=== PATIENT | female | born 1965 | race American Indian/Alaskan Native ===

== ENCOUNTER 2020-03-27 23:15 | Inpatient (IN) ==
[2020-03-27] MEDS ORDERED: ONDANSETRON 4 MG ODT TABLET SL ONE (23:46)
--- NOTE | 2020-03-27 23:59 | Emergency Department Note ---
SOB HPI <Gianni Hernandez MD - Last Filed: 03/28/20 07:14> General Chief Complaint: Shortness of Breath/Dyspnea Stated Complaint: shortness of breath Time Seen by Provider: 03/27/20 23:39 Source: patient and RN notes reviewed Mode of arrival: ambulatory Limitations: no limitations History of Present Illness HPI Narrative: Narrative: This is a dialysis patient who has had fever and cough for 5 days and tested positive for Covid yesterday. She was told if her O2 saturation dropped below 90 she should come to the emergency room. This evening it has been in the high 80s. Initially in the ER here she was in the mid 90s but did drop into the mid 80s. She has had minimal nausea vomiting. She has slight cough and slight shortness of breath. MD Complaint: shortness of breath and cough Context: recent illness Severity: moderate Consistency/Duration: intermittent Improves with: oxygen Worsens with: nothing Related Data Home Medications Medication Instructions Recorded Confirmed acetaminophen 325 mg capsule 325 mg PO ONCE PRN 12/13/19 alteplase 2 mg intra-catheter 2 mg INTRA-CATHETER BID PRN 12/13/19 solution calcitriol 0.25 mcg capsule 0.25 mcg PO 3XW 12/13/19 calcium carbonate 200 mg calcium 200 mg PO ONCE PRN tab 12/13/19 (500 mg) chewable tablet cholecalciferol (vitamin D3) 1,250 1,250 mcg PO QMONTH 12/13/19 mcg (50,000 unit) capsule clonidine HCl 0.1 mg tablet 0.1 mg PO ONCE PRN tab 12/13/19 clopidogrel 75 mg tablet 75 mg PO QDAY 12/13/19 darbepoetin halima in polysorbat 40 50 mcg IV QWEEK ml 12/13/19 mcg/mL in polysorbate injection heparin (porcine) 1,000 unit/mL 1,000 unit IV ml 12/13/19 injection solution heparin (porcine) 1,000 unit/mL 500 unit IV ml 12/13/19 injection solution hydroxyzine HCl 10 mg tablet 10 mg PO ONCE PRN tab 12/13/19 olopatadine 0.1 % eye drops 1 drp OPHTHALMIC BID 12/13/19 ondansetron HCl 2 mg/mL 4 mg IM ONCE PRN ml 12/13/19 intravenous solution ondansetron HCl 4 mg tablet 4 mg PO Q8H PRN 12/13/19 cyanocobalamin (vitamin B-12) 1,000 mcg PO QDAY 01/18/20 1,000 mcg capsule carvedilol 12.5 mg PO BID 03/28/20 03/28/20 omega-3 fatty acids [Fish Oil 1,000 mg PO DAILY 03/28/20 03/28/20 Concentrate] sevelamer carbonate 2,400 mg PO TID 03/28/20 03/28/20 valacyclovir 500 mg PO DAILY 03/28/20 03/28/20 Previous Rx's Medication Instructions Recorded blood pressure monitor #1 each 11/01/15 calcium acetate(phosphat bind) 667 1,334 mg PO .TID c c #180 cap 05/22/19 mg capsule furosemide 40 mg tablet See Rx Instructions PO QAM #90 tab 11/29/19 glipizide 2.5 mg tablet, extended 2.5 mg PO QDAY #30 tab 11/29/19 release 24 hr rosuvastatin 20 mg tablet 10 mg PO HS #30 tab 11/29/19 cetirizine 10 mg tablet 10 mg PO QDAY PRN #30 tab 12/07/19 ketotifen fumarate 0.025 % (0.035 1 drp OPHTHALMIC BID PRN #5 ml 12/07/19 %) eye drops carvedilol 25 mg tablet 25 mg PO Q12H #60 tab 12/13/19 losartan 50 mg tablet 50 mg PO BID #60 tab 12/13/19 aspirin 81 mg chewable tablet 81 mg PO QDAY #30 tab 01/02/20 vitamin B comp no.3-folic acid 1 1 tab PO QDAY #30 tab 01/02/20 mg-vit C 60 mg-biotin 300 mcg tablet albuterol sulfate 90 mcg/actuation 2 puff INHALATION Q6H PRN #6.7 g 01/18/20 aerosol inhaler Allergies Allergy/AdvReac Type Severity Reaction Status Date / Time codeine Allergy Severe Itching Verified 03/28/20 03:59 sulfamethoxazole Allergy Severe Unknown Verified 03/28/20 03:59 [From ] trimethoprim [From ] Allergy Severe Unknown Verified 03/28/20 03:59 Review of Systems <Gianni Hernandez MD - Last Filed: 03/28/20 07:14> ROS ROS Narrative: Narrative: All systems ED: reviewed and negative except as stated. 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) CKD (chronic kidney disease) stage 3, GFR 30-59 ml/min (Acute) Solitary kidney, acquired (Chronic) Dysuria (Chronic) Acute respiratory disease (Chronic) Microscopic hematuria (Chronic) Acute UTI (Chronic) Visual disturbance (Chronic) URI (upper respiratory infection) (Chronic) Nonexudative age-related macular degeneration (Chronic) Presbyopia (Chronic) Myopia (Chronic) Astigmatism (Chronic) Proteinuria (Chronic) Allergy to animals (Chronic) Hyperlipidemia (Chronic) Magnesium deficiency (Chronic) Vitamin B12 deficiency (Chronic) Burn of abdomen (Chronic) Vitamin D deficiency (Chronic) Deafness in right ear (Chronic) Hypertensive disorder (Chronic) Herpes (Chronic) Anemia (Chronic) DM type 2 (diabetes mellitus, type 2) (Chronic) Edema (Chronic) Low blood sugar (Chronic) Diabetes (Chronic) Left flank pain (Acute) History of nephrectomy (Chronic) Medical History (Updated 03/27/20 @ 23:59 by Gianni Hernandez MD) Acute respiratory disease (Chronic) Acute UTI (Chronic) Allergy to animals (Chronic) YAZ positive (Acute) Anemia (Chronic) Astigmatism (Chronic) Burn of abdomen (Chronic) Lower RT abdomen Chronic kidney disease, stage III (moderate) (Chronic) Deafness in right ear (Chronic) Diabetes (Chronic) DM type 2 (diabetes mellitus, type 2) (Chronic) Dysuria (Chronic) Edema (Chronic) ESR raised (Acute) Herpes (Chronic) History of gestational diabetes (Chronic) Hyperlipidemia (Chronic) Hypertensive disorder (Chronic) Left flank pain (Acute) Low blood sugar (Chronic) Magnesium deficiency (Chronic) Microscopic hematuria (Chronic) Myopia (Chronic) Nonexudative age-related macular degeneration (Chronic) Presbyopia (Chronic) Proteinuria (Chronic) SLE (systemic lupus erythematosus) (Suspected) Solitary kidney, acquired (Chronic) URI (upper respiratory infection) (Chronic) Visual disturbance (Chronic) Vitamin B12 deficiency (Chronic) Vitamin D deficiency (Chronic) Surgical History History of section (Chronic) History of nephrectomy (Chronic) 1997 right Family History Family/Other Diabetes mellitus, type II Aunt Brother Diabetes mellitus, type II Sister Diabetes mellitus, type II Father Hypoglycemia Family/Other Diabetes mellitus, type II Uncle Social History Smoking Status: Never smoker Alcohol Intake Frequency: does not drink Substance Use: does not use Exam <Gianni Hernandez MD - Last Filed: 03/28/20 07:14> Narrative Narrative: Narrative: General Limitations: no limitations Head Head: Present atraumatic, normocephalic and normal inspection Eye Eye: Present normal appearance and EOMI; Absent scleral icterus and conjunctival injection ENT ENT: Present normal exam, normal oropharynx and mucous membranes moist Neck Neck: Present normal inspection and full ROM Chest Chest: Present normal inspection and symmetric chest wall rise Respiratory Respiratory: Present normal lung sounds bilaterally Cardiovascular Cardiovascular: Present regular rate, normal rhythm and normal heart sounds Adbominal Abdominal: Present soft; Absent distention and tenderness Extremities Extremities: Present normal inspection and full ROM; Absent pedal edema and pretibial edema Neurological Neurological: Present alert Psychiatric Psychiatric: Present normal affect Skin Skin: Present warm (WNL) and dry; Absent diaphoresis Course <Gianni Hernandez MD - Last Filed: 03/28/20 07:14> Vital Signs Vital signs: Vital Signs Temperature 101.9 F H 03/27/20 23:16 Pulse Rate 79 03/27/20 23:16 Respiratory Rate 19 03/27/20 23:16 Blood Pressure 120/50 03/27/20 23:16 Pulse Oximetry (%) 90 03/27/20 23:16 Temperature 98.2 F 03/28/20 05:28 Pulse Rate 71 03/28/20 05:28 Respiratory Rate 18 03/28/20 05:28 Blood Pressure 121/61 03/28/20 05:28 Pulse Oximetry (%) 97 03/28/20 05:28 <Goran Wright MD - Last Filed: 03/28/20 07:04> Vital Signs Vital signs: Vital Signs Temperature 101.9 F H 03/27/20 23:16 Pulse Rate 79 03/27/20 23:16 Respiratory Rate 19 03/27/20 23:16 Blood Pressure 120/50 03/27/20 23:16 Pulse Oximetry (%) 90 03/27/20 23:16 Temperature 98.2 F 03/28/20 05:28 Pulse Rate 71 03/28/20 05:28 Respiratory Rate 18 03/28/20 05:28 Blood Pressure 121/61 03/28/20 05:28 Pulse Oximetry (%) 97 03/28/20 05:28 MDM <Gianni Hernandez MD - Last Filed: 03/28/20 07:14> MDM Narrative Medical decision making narrative: Narrative: This patient is Covid positive with Covid pneumonia and decreased O2 saturation. She is admitted to the hospital by Dr. Hutchinson Lab Data Lab results narrative: Lab work is unremarkable for a dialysis patient Result diagrams: 03/27/20 23:58 03/27/20 23:58 Labs: Lab Results 03/27/20 03/27/20 Range/Units 23:58 23:58 WBC 5.4 (4.5-11.0) K/mcL RBC 2.28 L (4.00-5.20) M/mcL Hgb 8.3 L (12.0-15.0) g/dL Hct 24.4 L (36.0-48.0) % MCV 107.0 H (80.0-100.0) fL MCH 36.4 H (26.0-34.0) pg MCHC 34.0 (31.0-36.0) g/dL RDW 13.2 (11.5-14.5) % Plt Count 189 (140-440) K/mcL MPV 9.7 (7.4-10.4) fL Neut % (Auto) 69.6 (38.0-78.0) % Lymph % (Auto) 18.9 (15.0-49.0) % Benson % (Auto) 11.3 (1.0-12.0) % Eos % (Auto) 0 (0.0-7.0) % Baso % (Auto) 0.2 (0.0-2.0) % Lymph # (Auto) 1.02 L (1.50-4.80) K/mcL Benson # (Auto) 0.61 (0.10-0.90) K/mcL Eos # (Auto) 0 (0.00-0.70) K/mcL Baso # (Auto) 0.01 (0.00-0.20) K/mcL Absolute Neutrophils 3.75 (1.80-8.00) K/mcL Sodium 133 (133-145) mmol/L Potassium 3.9 (3.3-5.1) mmol/L Chloride 92 L (96-108) mmol/L Carbon Dioxide 31 H (22-30) mmol/L Anion Gap 10.0 (8.0-16.0) BUN 15 (6-20) mg/dL Creatinine 5.0 H* (0.6-1.1) mg/dL GFR Calculation 9 Glucose 148 H (70-105) mg/dL Calcium 8.5 L (8.6-10.4) mg/dL Total Bilirubin 0.5 (0.1-1.0) mg/dL AST 25 (<32) U/L ALT 15 (<40) U/L Alkaline Phosphatase 87 (39-117) U/L Total Protein 7.1 (5.9-8.4) gm/dL Albumin 3.6 (3.2-5.2) gm/dL Globulin 3.5 (2.2-3.7) gm/dL Albumin/Globulin Ratio 1.0 (1.0-2.3) Radiology Data Radiology results reviewed: Yes I reviewed the patient's radiology results. Radiology results narrative: The radiologist feels she has a small mild patchy infiltrate in both lung goode. <Goran Wright MD - Last Filed: 03/28/20 07:04> Lab Data Labs: Lab Results 03/27/20 03/27/20 Range/Units 23:58 23:58 WBC 5.4 (4.5-11.0) K/mcL RBC 2.28 L (4.00-5.20) M/mcL Hgb 8.3 L (12.0-15.0) g/dL Hct 24.4 L (36.0-48.0) % MCV 107.0 H (80.0-100.0) fL MCH 36.4 H (26.0-34.0) pg MCHC 34.0 (31.0-36.0) g/dL RDW 13.2 (11.5-14.5) % Plt Count 189 (140-440) K/mcL MPV 9.7 (7.4-10.4) fL Neut % (Auto) 69.6 (38.0-78.0) % Lymph % (Auto) 18.9 (15.0-49.0) % Benson % (Auto) 11.3 (1.0-12.0) % Eos % (Auto) 0 (0.0-7.0) % Baso % (Auto) 0.2 (0.0-2.0) % Lymph # (Auto) 1.02 L (1.50-4.80) K/mcL Benson # (Auto) 0.61 (0.10-0.90) K/mcL Eos # (Auto) 0 (0.00-0.70) K/mcL Baso # (Auto) 0.01 (0.00-0.20) K/mcL Absolute Neutrophils 3.75 (1.80-8.00) K/mcL Sodium 133 (133-145) mmol/L Potassium 3.9 (3.3-5.1) mmol/L Chloride 92 L (96-108) mmol/L Carbon Dioxide 31 H (22-30) mmol/L Anion Gap 10.0 (8.0-16.0) BUN 15 (6-20) mg/dL Creatinine 5.0 H* (0.6-1.1) mg/dL GFR Calculation 9 Glucose 148 H (70-105) mg/dL Calcium 8.5 L (8.6-10.4) mg/dL Total Bilirubin 0.5 (0.1-1.0) mg/dL AST 25 (<32) U/L ALT 15 (<40) U/L Alkaline Phosphatase 87 (39-117) U/L Total Protein 7.1 (5.9-8.4) gm/dL Albumin 3.6 (3.2-5.2) gm/dL Globulin 3.5 (2.2-3.7) gm/dL Albumin/Globulin Ratio 1.0 (1.0-2.3) Discharge Plan Patient/Caregiver Discharge Instructions Pt seen by TRACTOR DISTRIBUTOR/PA only: No Clinical Impression: COVID-19 Patient Disposition: Xfer As Inpt ([facility]) Discharge Date/Time: 03/28/20 02:51
[2020-03-28 00:40] LABS: Basophils # (Auto) 0.01 K/mcL (0.00-0.20); Basophils % (Auto) 0.2 % (0.0-2.0); Eosinophils # (Auto) 0 K/mcL (0.00-0.70); Eosinophils % (Auto) 0 % (0.0-7.0); Hematocrit 24.4 % (36.0-48.0); Hemoglobin 8.3 g/dL (12.0-15.0); Lymphocytes # (Auto) 1.02 K/mcL (1.50-4.80); Lymphocytes % (Auto) 18.9 % (15.0-49.0); Mean Platelet Volume 9.7 fL (7.4-10.4); Monocytes # (Auto) 0.61 K/mcL (0.10-0.90); Monocytes % (Auto) 11.3 % (1.0-12.0); Neutrophils % (Auto) 69.6 % (38.0-78.0); Platelet Count 189 K/mcL (140-440); RBC 2.28 M/mcL (4.00-5.20); Red Cell Distribution Width 13.2 % (11.5-14.5); WBC 5.4 K/mcL (4.5-11.0)
[2020-03-28 01:12] LABS: ALT/SGPT 15 U/L (<40); AST/SGOT 25 U/L (<32); Albumin 3.6 gm/dL (3.2-5.2); Alkaline Phosphatase 87 U/L (39-117); Bilirubin,Total 0.5 mg/dL (0.1-1.0); Blood Urea Nitrogen 15 mg/dL (6-20); Calcium 8.5 mg/dL (8.6-10.4); Carbon Dioxide 31 mmol/L (22-30); Chloride 92 mmol/L (96-108); Globulin 3.5 gm/dL (2.2-3.7); Glomerular Filtration Rate 9; Glucose 148 mg/dL (70-105)
[2020-03-28] MEDS ORDERED: ONDANSETRON 4 MG/2 ML VIAL IV PRN (01:21)
[2020-03-28] MEDS ORDERED: ACETAMINOPHEN 325 MG TABLET PO PRN (01:21)
--- NOTE | 2020-03-28 03:37 | XRay Report ---
CLINICAL INFORMATION: sob COMPARISON: None. FINDINGS: Heart size is accentuated by portable technique, left rotation and lordotic positioning. It is within normal limits. Mediastinum and pulmonary vessels are normal. Small patchy right basilar infiltrate and minimal left mid lung infiltrate appreciated. No effusions IMPRESSION: Small patchy right basilar infiltrate. Small developing infiltrate left midlung. Interpreted and Authenticated by: Deepak Leahy 03/28/20
[2020-03-28] MEDS ORDERED: cefTRIAXone 1 GM in DEXTROSE 5% IN WATER 50 ML IV SCH (10:15)
[2020-03-28] MEDS ORDERED: ALBUTEROL SULFATE 2.5 MG/3 ML NEBULIZER INH PRN (10:17)
[2020-03-28] MEDS ORDERED: DEXTROSE 31 GM ORAL.SUSP PO PRN (10:27)
[2020-03-28] MEDS ORDERED: DEXTROSE 50% 50 ML VIAL IV PRN (10:27)
[2020-03-28] MEDS ORDERED: ALTEPLASE 2 MG VIAL IJ PRN (10:33)
[2020-03-28] MEDS ORDERED: CALCIUM CARBONATE 500 MG TAB.CHEW PO PRN (10:33)
[2020-03-28] MEDS ORDERED: cloNIDine HCL 0.1 MG TABLET PO PRN (10:33)
[2020-03-28] MEDS ORDERED: ALBUTEROL SULFATE 200 PUFF INHALER INH PRN (10:33)
[2020-03-28] MEDS ORDERED: PATIENTS OWN MEDICATION 1 DOSE MISCELL OU PRN (10:58)
--- NOTE | 2020-03-28 11:07 | Internal Med History&Physical ---
HPI History of Present Illness Patient information: Note initiated : 03/28/20 at 10:53 am Service Date, if different from initiated Date: [] Patient: Iris Dixon a 54 y/o F admitted on 03/28/20 for shortness of breath. Chief Complaint: [] History of present illness: Ms. Dixon is a 54 year old F with a history of end- stage renal disease on dialysis, type 2 diabetes, and anemia who presented to the ER due to shortness of breath. As per patient, she was diagnosed with positive COVID-19 on last Wednesday last week. She developed the fever, cough and the shortness of breath on Wednesday. She also complains of mild headache and mild nausea. She also reports that she has been having watery diarrhea for 4 days, many bowel movements a day. In the ER, she was found to have oxygen desaturation 80+. Chest x-ray showed Small patchy right basilar infiltrate. Small developing infiltrate left midlung. When I saw this patient, other than the symptoms mentioned above, she denied chest pain, abdominal pain, or dysuria. Review of Systems Review of systems: Positive for fever, shortness of breath, and diarrhea. All other systems were reviewed and negative. 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) CKD (chronic kidney disease) stage 3, GFR 30-59 ml/min (Acute) Solitary kidney, acquired (Chronic) Dysuria (Chronic) Acute respiratory disease (Chronic) Microscopic hematuria (Chronic) Acute UTI (Chronic) Visual disturbance (Chronic) URI (upper respiratory infection) (Chronic) Nonexudative age-related macular degeneration (Chronic) Presbyopia (Chronic) Myopia (Chronic) Astigmatism (Chronic) Proteinuria (Chronic) Allergy to animals (Chronic) Hyperlipidemia (Chronic) Magnesium deficiency (Chronic) Vitamin B12 deficiency (Chronic) Burn of abdomen (Chronic) Vitamin D deficiency (Chronic) Deafness in right ear (Chronic) Hypertensive disorder (Chronic) Herpes (Chronic) Anemia (Chronic) DM type 2 (diabetes mellitus, type 2) (Chronic) Edema (Chronic) Low blood sugar (Chronic) Diabetes (Chronic) Left flank pain (Acute) History of nephrectomy (Chronic) Medical History Acute respiratory disease (Chronic) Acute UTI (Chronic) Allergy to animals (Chronic) YAZ positive (Acute) Anemia (Chronic) Astigmatism (Chronic) Burn of abdomen (Chronic) Lower RT abdomen Chronic kidney disease, stage III (moderate) (Chronic) Deafness in right ear (Chronic) Diabetes (Chronic) DM type 2 (diabetes mellitus, type 2) (Chronic) Dysuria (Chronic) Edema (Chronic) ESR raised (Acute) Herpes (Chronic) History of gestational diabetes (Chronic) Hyperlipidemia (Chronic) Hypertensive disorder (Chronic) Left flank pain (Acute) Low blood sugar (Chronic) Magnesium deficiency (Chronic) Microscopic hematuria (Chronic) Myopia (Chronic) Nonexudative age-related macular degeneration (Chronic) Presbyopia (Chronic) Proteinuria (Chronic) SLE (systemic lupus erythematosus) (Suspected) Solitary kidney, acquired (Chronic) URI (upper respiratory infection) (Chronic) Visual disturbance (Chronic) Vitamin B12 deficiency (Chronic) Vitamin D deficiency (Chronic) Surgical History History of section (Chronic) History of nephrectomy (Chronic) 1997 right Family History Family/Other Diabetes mellitus, type II Aunt Brother Diabetes mellitus, type II Sister Diabetes mellitus, type II Father Hypoglycemia Family/Other Diabetes mellitus, type II Uncle Social History smoking status: Never smoker alcohol intake frequency: does not drink substance use type: does not use MEDS/ALLERGIES Home Medications and Allergies Home Medications Medication Instructions Recorded Confirmed Type blood pressure monitor #1 each 11/01/15 03/28/20 Rx calcium acetate(phosphat bind) 667 1,334 mg PO .TID c c #180 cap 05/22/19 03/28/20 Rx mg capsule furosemide 40 mg tablet See Rx Instructions PO QAM #90 tab 11/29/19 03/28/20 Rx glipizide 2.5 mg tablet, extended 2.5 mg PO QDAY #30 tab 11/29/19 03/28/20 Rx release 24 hr rosuvastatin 20 mg tablet 10 mg PO HS #30 tab 11/29/19 03/28/20 Rx cetirizine 10 mg tablet 10 mg PO QDAY PRN #30 tab 12/07/19 03/28/20 Rx ketotifen fumarate 0.025 % (0.035 1 drp OPHTHALMIC BID PRN #5 ml 12/07/19 03/28/20 Rx %) eye drops acetaminophen 325 mg capsule 325 mg PO Q4HP PRN 12/13/19 03/28/20 History alteplase 2 mg intra-catheter 2 mg INTRA-CATHETER BID PRN 12/13/19 03/28/20 History solution calcitriol 0.25 mcg capsule 0.25 mcg PO 3XW 12/13/19 03/28/20 History calcium carbonate 200 mg calcium 200 mg PO ONCE PRN tab 12/13/19 03/28/20 History (500 mg) chewable tablet carvedilol 25 mg tablet 25 mg PO Q12H #60 tab 12/13/19 03/28/20 Rx cholecalciferol (vitamin D3) 1,250 1,250 mcg PO QMONTH 12/13/19 03/28/20 History mcg (50,000 unit) capsule clonidine HCl 0.1 mg tablet 0.1 mg PO ONCE PRN tab 12/13/19 03/28/20 History clopidogrel 75 mg tablet 75 mg PO QDAY 12/13/19 03/28/20 History darbepoetin halima in polysorbat 40 50 mcg IV QWEEK ml 12/13/19 03/28/20 History mcg/mL in polysorbate injection heparin (porcine) 1,000 unit/mL 1,000 unit IV 3XW ml 12/13/19 03/28/20 History injection solution heparin (porcine) 1,000 unit/mL 500 unit IV 3XW ml 12/13/19 03/28/20 History injection solution hydroxyzine HCl 10 mg tablet 10 mg PO Q6HP PRN tab 12/13/19 03/28/20 History losartan 50 mg tablet 50 mg PO BID #60 tab 12/13/19 03/28/20 Rx olopatadine 0.1 % eye drops 1 drp OPHTHALMIC BID 12/13/19 03/28/20 History ondansetron HCl 2 mg/mL 4 mg IM ONCE PRN ml 12/13/19 03/28/20 History intravenous solution ondansetron HCl 4 mg tablet 4 mg PO Q8H PRN 12/13/19 03/28/20 History aspirin 81 mg chewable tablet 81 mg PO QDAY #30 tab 01/02/20 03/28/20 Rx vitamin B comp no.3-folic acid 1 1 tab PO QDAY #30 tab 01/02/20 03/28/20 Rx mg-vit C 60 mg-biotin 300 mcg tablet albuterol sulfate 90 mcg/actuation 2 puff INHALATION Q6H PRN #6.7 g 01/18/20 03/28/20 Rx aerosol inhaler cyanocobalamin (vitamin B-12) 1,000 mcg PO QDAY 01/18/20 03/28/20 History 1,000 mcg capsule carvedilol 12.5 mg PO BID 03/28/20 03/28/20 History omega-3 fatty acids [Fish Oil 1,000 mg PO DAILY 03/28/20 03/28/20 History Concentrate] sevelamer carbonate 2,400 mg PO TID 03/28/20 03/28/20 History valacyclovir 500 mg PO DAILY 03/28/20 03/28/20 History Allergies Allergy/AdvReac Type Severity Reaction Status Date / Time codeine Allergy Severe Itching Verified 03/28/20 03:59 sulfamethoxazole Allergy Severe Unknown Verified 03/28/20 03:59 [From ] trimethoprim [From ] Allergy Severe Unknown Verified 03/28/20 03:59 EXAM Constitutional Vitals: Temp Pulse Resp BP Pulse Ox 99.9 F H 61 16 113/60 98 03/28/20 08:00 03/28/20 08:00 03/28/20 08:00 03/28/20 08:00 03/28/20 08:00 Additional findings Additional findings: General - No acute distress Eyes - PERRLA, EOM intact ENT no rhinorrhea, no noticeable or palpable swelling, no redness or rash around throat or on face Neck supple, no JVD, no thyromegaly Respiratory: Lungs - diminshed BS, no use of accessary muscles. Cardiovascular - RRR no m/r/g, GI - Normal bowel sounds, no distended, soft. Extremeties - No edema, cyanosis or clubbing Hemo/lymphatic/immune no lymphadenopathy Neurological Alert and oriented x 3, no focal neurological deficits. Psychiatry flat affect DATA Data Completed and Pending Labs: Labs from last 24 hours 03/27/20 03/27/20 23:58 23:58 WBC 5.4 RBC 2.28 L Hgb 8.3 L Hct 24.4 L MCV 107.0 H MCH 36.4 H MCHC 34.0 RDW 13.2 Plt Count 189 MPV 9.7 Neut % (Auto) 69.6 Lymph % (Auto) 18.9 Morrison % (Auto) 11.3 Eos % (Auto) 0 Baso % (Auto) 0.2 Lymph # (Auto) 1.02 L Morrison # (Auto) 0.61 Eos # (Auto) 0 Baso # (Auto) 0.01 Absolute Neutrophils 3.75 Sodium 133 Potassium 3.9 Chloride 92 L Carbon Dioxide 31 H Anion Gap 10.0 BUN 15 Creatinine 5.0 H* GFR Calculation 9 Glucose 148 H Calcium 8.5 L Total Bilirubin 0.5 AST 25 ALT 15 Alkaline Phosphatase 87 Total Protein 7.1 Albumin 3.6 Globulin 3.5 Albumin/Globulin Ratio 1.0 A/P Narrative A/P Narrative: 1. Acute hypoxic respiratory failure In the ER, she was found to have oxygen desaturation 80+ Pulse ox Oxygen therapy to keep oxygen saturation > 92% 2. Pneumonia, Covid 19 or CAP 3. Positive Covid 19 Chest x-ray showed Small patchy right basilar infiltrate. Small developing infiltrate left midlung Blood culture Sputum culture MRSA screen Procalcitonin D-dimer Ferritin CRP Vitamin D Rocephin and azithromycin Patient is not a candidate for remdesivir due to ESRD Dexamethasone 6 mg p.o. daily Continue aspirin and Plavix. Heparin 5000 mg every 12 hours 4. ESRD on HD Religion Professor Dr. Wright is on board. Really appreciate it. 5. DM type 2 with nephropathy, A1c 7.6 Renal and a diabetic diet Lantus 18 units daily Insulin sliding scale 6. Anemia, Hb 8.3 on admission, due to ESRD Dr. Wright is on board Repeat HH in morning 7. DVT prophylaxis: Heparin 8. 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
--- NOTE | 2020-03-28 11:10 | Event Note ---
Event Note Event Note: Parties in Attendance: Patient Pt's decisional Capacity: Yes POLST form completed: not I explained the process regarding CPR and intubation to the patient who fully understood and agreed with CRP and intubation.
--- NOTE | 2020-03-28 11:24 | Nephrology Consult Note ---
HPI Data of Consult Primary Care Provider: Goran Wright MD Consult Narrative cc:: CC: Alejo Escudero Kalie Dixon is a 54-year-old with end-stage renal disease from biopsy-proven diabetic nephropathy. In addition to 15 years diabetes, she is bothered by diabetic peripheral neuropathy and retinopathy. In the past she has had a positive YAZ and anti-SSA antibodies but complement levels were normal and she did not have any features of active scleroderma or lupus. In 1996 she underwent a right nephrectomy for an enlarged nonfunctioning kidney possibly due to chronic pyelonephritis but I am not sure. She has been evaluated for renal transplantation but the evaluation process was so humiliating in her opinion she is denied further contact with transplant team. 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 Deepak Manzanares. She normally is a quiet reserved patient who I see weekly on dialysis and apparently over the weekend she developed a cough and diarrhea with some nausea underwent Covid testing and was positive and dialyzed Wednesday in isolation at which time her O2 sat was above 90%, she did have some cough paroxysms in which her O2 sat with drop below 90 and then quickly recover and while not toxic appearing she was certainly apprehensive and anxious appearing. After returning home after dialysis she was short of breath and presented to the emergency room here at [facility] where she required 2 L/min O2 by nasal cannula to maintain an O2 sat greater than 95%. Tm 38.8 and brief episode of hypotension seen in the EMR. 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 Selected Entries 03/27/20 23:16 03/28/20 08:00 Temperature 37.7 C H Pulse Rate [Monitor Reading] 61 Respiratory Rate 16 Blood Pressure 120/50 Blood Pressure [Right Arm] 113/60 Pulse Oximetry (%) 98 IMPRESSION:Small patchy right basilar infiltrate. Small developing infiltrate left midlung. Laboratory Tests 03/27/20 03/27/20 23:58 23:58 WBC 5.4 Hgb 8.3 L Hct 24.4 L MCV 107.0 H Plt Count 189 Sodium 133 Potassium 3.9 Chloride 92 L Carbon Dioxide 31 H Anion Gap 10.0 BUN 15 Creatinine 5.0 H* GFR Calculation 9 Glucose 148 H Calcium 8.5 L Total Bilirubin 0.5 AST 25 ALT 15 Alkaline Phosphatase 87 Total Protein 7.1 Albumin 3.6 Globulin 3.5 Constitutional Constitutional: Present fatigue, fever(s) and weakness EENT Eyes: Present as per HPI Cardiovascular Cardiovascular: Present dyspnea Respiratory Respiratory: Present cough, dyspnea and chest congestion Gastrointestinal Gastrointestinal: Present loose stools and nausea Genitourinary Genitourinary: Present as per HPI Musculoskeletal Musculoskeletal: Present muscle weakness and myalgias Integumentary Integumentary: Present as per HPI Neurological Neurological: Present as per HPI and weakness; Absent focal weakness Psychiatric Psychiatric: Present anxiety Endocrine Endocrine: Present fatigue Hematologic/Lymphatic Additional comments: Anemia of CKD Allergic/Immunologic Allergic/Immunologic: Present as per HPI PFSH PFSH All Active Problems Anemia in ESRD (end-stage renal disease) (Acute) COVID-19 (Acute) HTN (hypertension), benign (Acute) ESRD on hemodialysis (Acute) Secondary hyperparathyroidism of renal origin (Acute) ESR raised (Acute) YAZ positive (Acute) Chronic kidney disease, stage III (moderate) (Chronic) Nephrotic range proteinuria (Chronic) Anemia (Acute) Solitary left kidney (Chronic) Chronic Kidney Disease (Chronic) Proteinuria due to type 2 diabetes mellitus (Chronic) CKD (chronic kidney disease) stage 3, GFR 30-59 ml/min (Acute) Solitary kidney, acquired (Chronic) Dysuria (Chronic) Acute respiratory disease (Chronic) Microscopic hematuria (Chronic) Acute UTI (Chronic) Visual disturbance (Chronic) URI (upper respiratory infection) (Chronic) Nonexudative age-related macular degeneration (Chronic) Presbyopia (Chronic) Myopia (Chronic) Astigmatism (Chronic) Proteinuria (Chronic) Allergy to animals (Chronic) Hyperlipidemia (Chronic) Magnesium deficiency (Chronic) Vitamin B12 deficiency (Chronic) Burn of abdomen (Chronic) Vitamin D deficiency (Chronic) Deafness in right ear (Chronic) Hypertensive disorder (Chronic) Herpes (Chronic) Anemia (Chronic) DM type 2 (diabetes mellitus, type 2) (Chronic) Edema (Chronic) Low blood sugar (Chronic) Diabetes (Chronic) Left flank pain (Acute) History of nephrectomy (Chronic) Medical History Acute respiratory disease (Chronic) Acute UTI (Chronic) Allergy to animals (Chronic) YAZ positive (Acute) Anemia (Chronic) Astigmatism (Chronic) Burn of abdomen (Chronic) Lower RT abdomen Chronic kidney disease, stage III (moderate) (Chronic) Deafness in right ear (Chronic) Diabetes (Chronic) DM type 2 (diabetes mellitus, type 2) (Chronic) Dysuria (Chronic) Edema (Chronic) ESR raised (Acute) Herpes (Chronic) History of gestational diabetes (Chronic) Hyperlipidemia (Chronic) Hypertensive disorder (Chronic) Left flank pain (Acute) Low blood sugar (Chronic) Magnesium deficiency (Chronic) Microscopic hematuria (Chronic) Myopia (Chronic) Nonexudative age-related macular degeneration (Chronic) Presbyopia (Chronic) Proteinuria (Chronic) SLE (systemic lupus erythematosus) (Suspected) Solitary kidney, acquired (Chronic) URI (upper respiratory infection) (Chronic) Visual disturbance (Chronic) Vitamin B12 deficiency (Chronic) Vitamin D deficiency (Chronic) Surgical History History of section (Chronic) History of nephrectomy (Chronic) 1997 right Family History Family/Other Diabetes mellitus, type II Aunt Brother Diabetes mellitus, type II Sister Diabetes mellitus, type II Father Hypoglycemia Family/Other Diabetes mellitus, type II Uncle Social History smoking status: Never smoker alcohol intake frequency: does not drink substance use type: does not use MEDS/ALLERGIES Home Medications and Allergies Home Medications Medication Instructions Recorded Confirmed Type blood pressure monitor #1 each 11/01/15 03/28/20 Rx calcium acetate(phosphat bind) 667 1,334 mg PO .TID c c #180 cap 05/22/19 03/28/20 Rx mg capsule furosemide 40 mg tablet See Rx Instructions PO QAM #90 tab 11/29/19 03/28/20 Rx glipizide 2.5 mg tablet, extended 2.5 mg PO QDAY #30 tab 11/29/19 03/28/20 Rx release 24 hr rosuvastatin 20 mg tablet 10 mg PO HS #30 tab 11/29/19 03/28/20 Rx cetirizine 10 mg tablet 10 mg PO QDAY PRN #30 tab 12/07/19 03/28/20 Rx ketotifen fumarate 0.025 % (0.035 1 drp OPHTHALMIC BID PRN #5 ml 12/07/19 03/28/20 Rx %) eye drops acetaminophen 325 mg capsule 325 mg PO Q4HP PRN 12/13/19 03/28/20 History alteplase 2 mg intra-catheter 2 mg INTRA-CATHETER BID PRN 12/13/19 03/28/20 History solution calcitriol 0.25 mcg capsule 0.25 mcg PO 3XW 12/13/19 03/28/20 History calcium carbonate 200 mg calcium 200 mg PO ONCE PRN tab 12/13/19 03/28/20 History (500 mg) chewable tablet carvedilol 25 mg tablet 25 mg PO Q12H #60 tab 12/13/19 03/28/20 Rx cholecalciferol (vitamin D3) 1,250 1,250 mcg PO QMONTH 12/13/19 03/28/20 History mcg (50,000 unit) capsule clonidine HCl 0.1 mg tablet 0.1 mg PO ONCE PRN tab 12/13/19 03/28/20 History clopidogrel 75 mg tablet 75 mg PO QDAY 12/13/19 03/28/20 History darbepoetin halima in polysorbat 40 50 mcg IV QWEEK ml 12/13/19 03/28/20 History mcg/mL in polysorbate injection heparin (porcine) 1,000 unit/mL 1,000 unit IV 3XW ml 12/13/19 03/28/20 History injection solution heparin (porcine) 1,000 unit/mL 500 unit IV 3XW ml 12/13/19 03/28/20 History injection solution hydroxyzine HCl 10 mg tablet 10 mg PO Q6HP PRN tab 12/13/19 03/28/20 History losartan 50 mg tablet 50 mg PO BID #60 tab 12/13/19 03/28/20 Rx olopatadine 0.1 % eye drops 1 drp OPHTHALMIC BID 12/13/19 03/28/20 History ondansetron HCl 2 mg/mL 4 mg IM ONCE PRN ml 12/13/19 03/28/20 History intravenous solution ondansetron HCl 4 mg tablet 4 mg PO Q8H PRN 12/13/19 03/28/20 History aspirin 81 mg chewable tablet 81 mg PO QDAY #30 tab 01/02/20 03/28/20 Rx vitamin B comp no.3-folic acid 1 1 tab PO QDAY #30 tab 01/02/20 03/28/20 Rx mg-vit C 60 mg-biotin 300 mcg tablet albuterol sulfate 90 mcg/actuation 2 puff INHALATION Q6H PRN #6.7 g 01/18/20 03/28/20 Rx aerosol inhaler cyanocobalamin (vitamin B-12) 1,000 mcg PO QDAY 01/18/20 03/28/20 History 1,000 mcg capsule carvedilol 12.5 mg PO BID 03/28/20 03/28/20 History omega-3 fatty acids [Fish Oil 1,000 mg PO DAILY 03/28/20 03/28/20 History Concentrate] sevelamer carbonate 2,400 mg PO TID 03/28/20 03/28/20 History valacyclovir 500 mg PO DAILY 03/28/20 03/28/20 History Allergies Allergy/AdvReac Type Severity Reaction Status Date / Time codeine Allergy Severe Itching Verified 03/28/20 03:59 sulfamethoxazole Allergy Severe Unknown Verified 03/28/20 03:59 [From ] trimethoprim [From ] Allergy Severe Unknown Verified 03/28/20 03:59 Physical Examination Vital Signs Vital signs: Temp Pulse Resp BP Pulse Ox 37.7 C H 61 16 113/60 98 03/28/20 08:00 03/28/20 08:00 03/28/20 08:00 03/28/20 08:00 03/28/20 08:00 General Appearance General appearance: chronically ill, fatigue and anxious (Less so than last evening) EENT EENT: ATNC, PERRL and mucous membranes moist Neck Neck: no JVD, no carotid bruit and supple Respiratory Respiratory: course breath sounds and rhonchi Cardiovascular Cardiology: mid-systolic murmur, no rub, no gallops, no edema, regular rate, normal S1 and normal S2 Gastrointestinal Gastrointestinal: normoactive bowel sounds, no tenderness and no guarding Integumentary Integumentary: no rash Neurologic Neurologic: no focal deficit, no asterixis, alert and oriented x3 and CN 3-12 intact Musculoskeletal Musculoskeletal: no deformities, no cyanosis and no clubbing Psychiatric Psychiatric: mood/affect appropriate Additional Exam Additional exam: Left upper arm AV fistula with bruit and thrill Results Lab Results Result Diagrams: 03/27/20 23:58 03/27/20 23:58 Lab results: Most recent lab results Calcium 8.5 mg/dL (8.6-10.4) L 03/27/20 23:58 A/P Assessment and plan (1) ESRD on hemodialysis: Status: Acute Comment: Dialysis Wednesday and Wednesday (2) COVID-19: Status: Acute Comment: Symptomatic and supportive treatment for now Dexamethasone 6 mg po qD x 10 days Azithro and cefepime empiric HCAP coverage (3) Secondary hyperparathyroidism of renal origin: Status: Acute Comment: Continue phosphate binders and 1,25 vitamin D2 analogs (4) Anemia in ESRD (end-stage renal disease): Status: Acute Comment: Received Aranesp yesterday on dialysis Time Spent With Patient Time: Total time spent is greater than 50% in coordination of care (as documented) at patient's floor/unit and/or counseling patient:
[2020-03-28 12:17] LABS: Ferritin > 2000.0 ng/mL (13.0-150.0)
[2020-03-28] MEDS: SEVELAMER 800 MG TABLET PO SCH ×2 (12:40→16:50)
[2020-03-28] MEDS: cefTRIAXone 1 GM VIAL IV SCH (12:40)
[2020-03-28] MEDS: AZITHROMYCIN 500 MG in DEXTROSE 5% IN WATER 250 ML IV SCH (12:40)
[2020-03-28] MEDS: CALCIUM ACETATE 667 MG CAPSULE PO SCH ×2 (12:40→16:51)
[2020-03-28] MEDS: 0.9 % SODIUM CHLORIDE 10 ML SYRINGE IV SCH ×2 (13:12→22:28)
[2020-03-28] MEDS: INSULIN LISPRO 1 UNIT/0.01 ML UNIT SQ SCH ×3 (13:47→21:22)
[2020-03-28 14:41] LABS: Estimated Average Glucose(eAG) 212 mg/dL
[2020-03-28] MEDS: CARVEDILOL 12.5 MG TABLET PO SCH (16:51)
[2020-03-28] MEDS: ACETAMINOPHEN 325 MG TABLET PO PRN (17:14)
[2020-03-28] MEDS ORDERED: ALBUMIN HUMAN 12.5 GM/50 ML BAG IV PRN (18:30)
[2020-03-28] MEDS ORDERED: FUROSEMIDE 40 MG TABLET PO SCH (21:00)
[2020-03-28] MEDS: SENNOSIDES 1 TABLET PO SCH (21:21)
[2020-03-28] MEDS: DOCUSATE SODIUM 100 MG CAPSULE PO SCH (21:21)
[2020-03-28] MEDS: HEPARIN 5,000 UNIT/ML VIAL SQ SCH (21:22)
[2020-03-28] MEDS: SIMVASTATIN 20 MG TABLET PO SCH (21:23)
[2020-03-28] MEDS: LOSARTAN 50 MG TABLET PO SCH (21:23)
[2020-03-28] MEDS: OLOPATADINE 0.2% OU SCH (21:24)
[2020-03-29] MEDS: 0.9 % SODIUM CHLORIDE 10 ML SYRINGE IV SCH ×3 (06:45→22:27)
[2020-03-29] MEDS: DOCUSATE SODIUM 100 MG CAPSULE PO SCH ×2 (07:02→21:32)
[2020-03-29] MEDS: OLOPATADINE 0.2% OU SCH ×2 (07:03→21:32)
[2020-03-29 07:43] LABS: Basophils # (Auto) 0.01 K/mcL (0.00-0.20); Basophils % (Auto) 0.2 % (0.0-2.0); Eosinophils # (Auto) 0.01 K/mcL (0.00-0.70); Eosinophils % (Auto) 0.2 % (0.0-7.0); Hematocrit 23.2 % (36.0-48.0); Hemoglobin 7.7 g/dL (12.0-15.0); Lymphocytes # (Auto) 1.41 K/mcL (1.50-4.80); Lymphocytes % (Auto) 28.4 % (15.0-49.0); Mean Cell Volume 108.9 fL (80.0-100.0); Mean Corpuscular HGB Conc 33.2 g/dL (31.0-36.0); Mean Platelet Volume 10.1 fL (7.4-10.4); Monocytes # (Auto) 0.49 K/mcL (0.10-0.90); Monocytes % (Auto) 9.9 % (1.0-12.0); Neutrophils % (Auto) 61.3 % (38.0-78.0); Platelet Count 210 K/mcL (140-440); RBC 2.13 M/mcL (4.00-5.20); Red Cell Distribution Width 13.4 % (11.5-14.5)
[2020-03-29] MEDS: INSULIN LISPRO 1 UNIT/0.01 ML UNIT SQ SCH ×5 (07:51→23:28)
[2020-03-29] MEDS: CYANOCOBALAMIN (VITAMIN B-12) 500 MCG TABLET PO SCH (07:51)
[2020-03-29] MEDS: VITAMIN B COMPLEX 1 CAPSULE PO SCH (07:52)
[2020-03-29] MEDS: ASPIRIN 81 MG TAB.CHEW PO SCH (07:52)
[2020-03-29] MEDS: FUROSEMIDE 40 MG TABLET PO SCH (07:52)
[2020-03-29] MEDS: LOSARTAN 50 MG TABLET PO SCH ×2 (07:52→20:55)
[2020-03-29] MEDS: CARVEDILOL 12.5 MG TABLET PO SCH ×2 (07:53→17:03)
[2020-03-29] MEDS: SEVELAMER 800 MG TABLET PO SCH ×3 (07:53→17:01)
[2020-03-29] MEDS: CALCIUM ACETATE 667 MG CAPSULE PO SCH ×3 (07:54→17:03)
[2020-03-29] MEDS: DEXAMETHASONE 4 MG TABLET PO SCH (07:54)
[2020-03-29] MEDS: HEPARIN 5,000 UNIT/ML VIAL SQ SCH ×2 (07:56→20:55)
[2020-03-29 08:31] LABS: ALT/SGPT 10 U/L (<40); AST/SGOT 20 U/L (<32); Albumin 3.2 gm/dL (3.2-5.2); Alkaline Phosphatase 75 U/L (39-117); Bilirubin,Total 0.3 mg/dL (0.1-1.0); Blood Urea Nitrogen 44 mg/dL (6-20); Calcium 7.8 mg/dL (8.6-10.4); Carbon Dioxide 26 mmol/L (22-30); Chloride 92 mmol/L (96-108); Globulin 3.3 gm/dL (2.2-3.7); Glomerular Filtration Rate 5; Glucose 126 mg/dL (70-105)
[2020-03-29] MEDS ORDERED: CHOLECALCIFEROL 1250 MCG PO SCH (09:00)
[2020-03-29] MEDS ORDERED: valACYclovir 500 MG TABLET PO SCH (09:00)
[2020-03-29] MEDS: CLOPIDOGREL 75 MG TABLET PO SCH (09:53)
[2020-03-29] MEDS: cefTRIAXone 1 GM VIAL IV SCH (09:54)
[2020-03-29] MEDS: AZITHROMYCIN 500 MG in DEXTROSE 5% IN WATER 250 ML IV SCH (09:57)
[2020-03-29] MEDS: ACETAMINOPHEN 325 MG TABLET PO PRN (10:06)
--- NOTE | 2020-03-29 13:33 | Nephrology Procedure Note ---
Procedure Note Patient information: Note initiated : 03/29/20 at 1:32 pm Service Date, if different from initiated Date: [] Patient: Iris Dixon 54 y/o F admitted on 03/28/20 for shortness of breath. Chief Complaint: [ESRD and SARS-CV2] Patient was seen and evaluated on dialysis at [facility] History with outlined in my consult note of March 28, 2020 Interval history: Patient was seen and evaluated on dialysis. 4 hour treatment with 3.4 liter U/f Patient tolerated with mild cramping. Continues with adequate O2 saturation at rest but dyspnea and increasing O2 requirements with minimal exertion. VS: Afebrile Pulse 60-70/min BP 95/60 - 120/70 RR 22-30/min O2 sat >90% on 1L/min NC Gen: Lethargic but arousable. Heent: PERRL, EOMI, Anicteric sclerae Neck: Supple w/o elevated JVP No bruits, good carotid upstroke Chest: Bilateral air flow Rhonchi w/o rales, wheezing Cor: S1S2 w/o S3 No rub ABD: BS (+), benign Ext: No edema Neuro: A& O x 3, CN II-XII intact, Nonfocal, Diffuse weakness Back: No cvat Psy: Flatted affect Laboratory Tests 03/28/20 03/28/20 03/28/20 10:59 11:00 11:00 WBC Hgb Hct MCV Plt Count Eos % (Auto) D-Dimer 2.02 H VBG Lactic Acid 0.8 Sodium Potassium Chloride Carbon Dioxide Anion Gap BUN Creatinine GFR Calculation Glucose Hemoglobin A1c 9.0 H Estim Average Glucose 212 Calcium Magnesium 1.9 Ferritin > 2000.0 H Total Bilirubin AST ALT Alkaline Phosphatase Troponin T C-Reactive Protein 8.70 H NT-Pro-B Natriuret Pep Total Protein Albumin Globulin Albumin/Globulin Ratio 25-OH Vitamin D Total Procalcitonin 03/29/20 03/29/20 06:01 06:01 WBC 5.0 Hgb 7.7 L Hct 23.2 L MCV 108.9 H Plt Count 210 Eos % (Auto) 0.2 D-Dimer VBG Lactic Acid Sodium 132 L Potassium 4.1 Chloride 92 L Carbon Dioxide 26 Anion Gap 14.0 BUN 44 H Creatinine 8.6 H* GFR Calculation 5 Glucose 126 H Hemoglobin A1c Estim Average Glucose Calcium 7.8 L Magnesium Ferritin Total Bilirubin 0.3 AST 20 ALT 10 Alkaline Phosphatase 75 Troponin T 0.02 C-Reactive Protein NT-Pro-B Natriuret Pep 3261.0 H Total Protein 6.5 Albumin 3.2 Globulin 3.3 Albumin/Globulin Ratio 1.0 25-OH Vitamin D Total 13.56 Procalcitonin 0.80 A/P: 1. SARS CV2 infection => Dexamethasone 6 mg po for 10 days Careful monitoring due to high risk patient with Obesity, DM, and ESRD 2. ESRD => Run with as much U/F as possible to minimize lung H2O. 3. Anemia => Too much labwork with acute blood loss to LAB. Transfuse to keep HgB > 7.0 gm/gl Extra Aranesp 100 ug SQ Q Sat Ferritin >1000 as acute phase reactant
[2020-03-29] MEDS ORDERED: CALCITRIOL 0.25 MCG CAPSULE PO SCH (16:00)
--- NOTE | 2020-03-29 16:30 | Internal Med Progress Note ---
SUBJECTIVE Subjective Patient information: Note initiated : 03/29/20 at 4:27 pm Service Date, if different from initiated Date: [] Patient: Iris Dixon a 54 y/o F admitted on 03/28/20 for shortness of breath. Chief Complaint: [] Ms. Dixon is a 54 year old F with a history of end-stage renal disease on dialysis, type 2 diabetes, and anemia who presented to the ER due to shortness of breath. As per patient, she was diagnosed with positive COVID-19 on last Wednesday last week. She developed the fever, cough and the shortness of breath on Wednesday. She also complains of mild headache and mild nausea. She also reports that she has been having watery diarrhea for 4 days, many bowel moveme nts a day. In the ER, she was found to have oxygen desaturation 80+. Chest x-ray showed Small patchy right basilar infiltrate. Small developing infiltrate left midlung. When I saw this patient, other than the symptoms mentioned above, she denied chest pain, abdominal pain, or dysuria. 03/29 Pt told me that she still has diarrhea but improving. Denies fever/chills. She is not a candidate for remdesivir due to end-stage renal disease She is now on 2.5 L Hemoglobin 7.7 No overnight events Review of Systems Review of systems: Positive for fever, shortness of breath, and diarrhea. All other systems were reviewed and negative. Constitutional Vitals: Vital Signs Temp Pulse Resp BP Pulse Ox 97.1 F 61 16 97/61 96 03/29/20 14:48 03/29/20 14:48 03/29/20 08:00 03/29/20 14:48 03/29/20 12:00 Period Temp Pulse Resp BP Sys/Bronson Pulse Ox Last 24 Hr 97.1 F-99.4 F 60-73 - 90-122/48-71 84-97 Intake and Output 03/29/20 03/29/20 03/29/20 05:59 13:59 21:59 Intake Total 200 240 Output Total 3400 Balance 200 240 -3400 Weight 88.178 kg Patient Weight 03/30/20 05:59 Weight 88.178 kg Intake & Output: Intake & Output 03/29/20 03/29/20 03/29/20 05:59 13:59 21:59 Intake Total 200 240 Output Total 3400 Balance 200 240 -3400 Weight 88.178 kg Intake: Oral 200 240 Output: Hemodialysis UF 3400 Other: Meal Breakfast Percent of Meal Consumed 75% Feeding Ability Independent Stool Size Moderate Moderate Stool Color Brown Brown Stool Consistency Soft Soft # Voids 3 Additional findings Additional findings: General - No acute distress Eyes - PERRLA, EOM intact ENT no rhinorrhea, no noticeable or palpable swelling, no redness or rash around throat or on face Neck supple, no JVD, no thyromegaly Respiratory: Lungs - diminshed BS, no use of accessary muscles. Cardiovascular - RRR no m/r/g, GI - Normal bowel sounds, no distended, soft. Extremeties - No edema, cyanosis or clubbing Hemo/lymphatic/immune no lymphadenopathy Neurological Alert and oriented x 3, no focal neurological deficits. Psychiatry flat affect OBJ DATA Labs CBC & Chem 7: 03/29/20 06:01 03/29/20 06:01 Labs: Abnormal Lab Results 03/29/20 03/29/20 03/28/20 06:01 06:01 11:01 RBC 2.13 L Hgb 7.7 L Hct 23.2 L MCV 108.9 H MCH 36.2 H Lymph # (Auto) 1.41 L D-Dimer Sodium 132 L Chloride 92 L Carbon Dioxide BUN 44 H Creatinine 8.6 H* Glucose 126 H Hemoglobin A1c Calcium 7.8 L Ferritin C-Reactive Protein NT-Pro-B Natriuret Pep 3261.0 H 25-OH Vitamin D Total 13.56 L Procalcitonin 03/28/20 03/28/20 03/28/20 11:01 11:00 11:00 RBC Hgb Hct MCV MCH Lymph # (Auto) D-Dimer 2.02 H Sodium Chloride Carbon Dioxide BUN Creatinine Glucose Hemoglobin A1c 9.0 H Calcium Ferritin > 2000.0 H C-Reactive Protein 8.70 H NT-Pro-B Natriuret Pep 25-OH Vitamin D Total Procalcitonin 0.80 H 03/27/20 03/27/20 23:58 23:58 RBC 2.28 L Hgb 8.3 L Hct 24.4 L MCV 107.0 H MCH 36.4 H Lymph # (Auto) 1.02 L D-Dimer Sodium Chloride 92 L Carbon Dioxide 31 H BUN Creatinine 5.0 H* Glucose 148 H Hemoglobin A1c Calcium 8.5 L Ferritin C-Reactive Protein NT-Pro-B Natriuret Pep 25-OH Vitamin D Total Procalcitonin Meds: Medications Acetaminophen (Tylenol) 650 mg PO Q6HP PRN; Protocol PRN Reason: Per Pain Protocol/Fever > 101 Last Admin: 03/29/20 10:06 Dose: 650 mg Documented by: Albuterol Sulfate (Ventolin) 2.5 mg INH Q4HP PRN PRN Reason: Shortness Of Breath Albuterol Sulfate (Ventolin) 2 puff INH Q6HP PRN PRN Reason: shortness of breath or wheezin Aspirin (Aspirin) 81 mg PO QDAY [facility] Last Admin: 03/29/20 07:52 Dose: 81 mg Documented by: Calcitriol (Rocaltrol) 0.25 mcg PO [id number]@1600 [facility] Calcium Acetate (Phoslo) 1,334 mg PO TIDCC [facility] Last Admin: 03/29/20 11:42 Dose: Not Given Documented by: Calcium Carbonate/Glycine (Tums) 200 mg PO TIDP PRN PRN Reason: Heartburn Carvedilol (Coreg) 12.5 mg PO BIDCC [facility] Last Admin: 03/29/20 07:53 Dose: 12.5 mg Documented by: Ceftriaxone Sodium (Rocephin) 1 gm IV DAILY [facility] Last Admin: 03/29/20 09:54 Dose: 1 gm Documented by: Clonidine HCl (Catapres) 0.1 mg PO DAILYP PRN PRN Reason: SBP>160, DBP>90 Clopidogrel Bisulfate (Plavix) 75 mg PO QDAY [facility] Last Admin: 03/29/20 09:53 Dose: 75 mg Documented by: Cyanocobalamin (Vitamin B-12) 1,000 mcg PO DAILY [facility] Last Admin: 03/29/20 07:51 Dose: 1,000 mcg Documented by: Dexamethasone (Decadron) 6 mg PO DAILY [facility] Last Admin: 03/29/20 07:54 Dose: 6 mg Documented by: Dextrose (Dextrose 50%) 0 ml IV UD PRN PRN Reason: Hypoglycemia Diagnostic Test (Pha) (Accu-Chek) 1 each FS ACHS [facility] Last Admin: 03/29/20 11:43 Dose: 1 each Documented by: Docusate Sodium (Colace) 100 mg PO BID [facility] Last Admin: 03/29/20 07:02 Dose: Not Given Documented by: Furosemide (Lasix) 80 mg PO DAILY [facility] Last Admin: 03/29/20 07:52 Dose: 80 mg Documented by: Glucose (Insta-Glucose) 15 gm PO PRN PRN PRN Reason: Hypoglycemia Heparin Sodium (Porcine) (Heparin) 5,000 unit SQ Q12 [facility] Last Admin: 03/29/20 07:56 Dose: 5,000 unit Documented by: Azithromycin 500 mg/ Dextrose 250 mls @ 250 mls/hr IV Q24H [facility]; Protocol Stop: 03/30/20 10:59 Last Admin: 03/29/20 09:57 Dose: 250 mls/hr Documented by: Albumin Human (Buminate) 12.5 gm in 50 mls @ 100 mls/hr IV Q1H PRN PRN Reason: hypotension on HD Insulin Human Lispro (Humalog) 0 unit SQ ACHS [facility]; Protocol Last Admin: 03/29/20 12:05 Dose: 3 units Documented by: Losartan Potassium (Cozaar) 50 mg PO BID [facility] Last Admin: 03/29/20 07:52 Dose: 50 mg Documented by: Ondansetron HCl (Zofran) 4 mg IV Q4HP PRN; Protocol PRN Reason: Nausea And Vomiting Last Admin: 03/28/20 02:58 Dose: 4 mg Documented by: Patient Own Medication () 1 dose OU BIDP PRN PRN Reason: allergy symptoms Olopatadine 0.2% (Ophthalmic Solution) 1 dose OU BID [facility] Last Admin: 03/29/20 07:03 Dose: Not Given Documented by: Senna (Senokot) 2 tab PO [facility] Last Admin: 03/28/20 21:21 Dose: Not Given Documented by: Sevelamer Carbonate (Renvela) 2,400 mg PO TIDCC [facility] Last Admin: 03/29/20 11:42 Dose: Not Given Documented by: Simvastatin (Zocor) 40 mg PO [facility] Last Admin: 03/28/20 21:23 Dose: 40 mg Documented by: Sodium Chloride (Saline Flush) 10 ml IV Q8 [facility] Last Admin: 03/29/20 12:06 Dose: Not Given Documented by: Vitamin B Complex (Vitamin B Complex) 1 cap PO DAILY [facility] Last Admin: 03/29/20 07:52 Dose: 1 cap Documented by: A/P Narrative A/P Narrative: 1. Acute hypoxic respiratory failure In the ER, she was found to have oxygen desaturation 80+ Pulse ox Oxygen therapy to keep oxygen saturation > 92% She is now on 2.5 L 2. Pneumonia, Covid 19 or CAP 3. Positive Covid 19 Chest x-ray showed Small patchy right basilar infiltrate. Small developing infiltrate left midlung Blood culture no growth MRSA screen negative Procalcitonin 0.80 D-dimer 2.02 Ferritin > 2000 CRP 8.7 Vitamin D Rocephin and azithromycin Patient is not a candidate for remdesivir due to ESRD Dexamethasone 6 mg p.o. daily Continue aspirin and Plavix. Heparin 5000 mg every 12 hours 4. 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 Wright is on board. Really appreciate it. 5. DM type 2 with nephropathy, A1c 7.6 Renal and a diabetic diet Lantus 18 units daily Insulin sliding scale 6. Anemia, Hb 8.3 on admission, due to ESRD Hemoglobin 7.[address] Wright is on board Repeat HH in morning 7. DVT prophylaxis: Heparin 8. 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
[2020-03-29] MEDS: SIMVASTATIN 20 MG TABLET PO SCH (20:55)
[2020-03-29] MEDS: SENNOSIDES 1 TABLET PO SCH (21:32)
[2020-03-30] MEDS: INSULIN LISPRO 1 UNIT/0.01 ML UNIT SQ SCH ×6 (01:48→22:45)
[2020-03-30] MEDS: 0.9 % SODIUM CHLORIDE 10 ML SYRINGE IV SCH ×3 (05:58→20:32)
[2020-03-30 07:40] LABS: Basophils # (Auto) 0.01 K/mcL (0.00-0.20); Basophils % (Auto) 0.2 % (0.0-2.0); Eosinophils # (Auto) 0 K/mcL (0.00-0.70); Eosinophils % (Auto) 0 % (0.0-7.0); Hematocrit 26.1 % (36.0-48.0); Hemoglobin 8.7 g/dL (12.0-15.0); Lymphocytes # (Auto) 0.74 K/mcL (1.50-4.80); Lymphocytes % (Auto) 14.5 % (15.0-49.0); Mean Cell Volume 108.3 fL (80.0-100.0); Mean Corpuscular HGB Conc 33.3 g/dL (31.0-36.0); Mean Platelet Volume 10.3 fL (7.4-10.4); Monocytes # (Auto) 0.77 K/mcL (0.10-0.90); Monocytes % (Auto) 15.1 % (1.0-12.0); Neutrophils % (Auto) 70.2 % (38.0-78.0); Platelet Count 285 K/mcL (140-440); RBC 2.41 M/mcL (4.00-5.20); Red Cell Distribution Width 13.2 % (11.5-14.5); WBC 5.1 K/mcL (4.5-11.0)
[2020-03-30] MEDS: CALCIUM ACETATE 667 MG CAPSULE PO SCH ×3 (08:01→17:05)
[2020-03-30] MEDS: ACETAMINOPHEN 325 MG TABLET PO PRN ×2 (08:01→20:11)
[2020-03-30] MEDS: SEVELAMER 800 MG TABLET PO SCH ×3 (08:01→17:06)
[2020-03-30] MEDS: CARVEDILOL 12.5 MG TABLET PO SCH ×2 (08:02→17:06)
[2020-03-30 09:03] LABS: ALT/SGPT 12 U/L (<40); AST/SGOT 22 U/L (<32); Albumin 3.6 gm/dL (3.2-5.2); Alkaline Phosphatase 89 U/L (39-117); Bilirubin,Total 0.4 mg/dL (0.1-1.0); Blood Urea Nitrogen 30 mg/dL (6-20); Calcium 8.5 mg/dL (8.6-10.4); Carbon Dioxide 26 mmol/L (22-30); Chloride 91 mmol/L (96-108); Globulin 3.5 gm/dL (2.2-3.7); Glomerular Filtration Rate 7; Glucose 265 mg/dL (70-105)
[2020-03-30] MEDS: FUROSEMIDE 40 MG TABLET PO SCH (09:55)
[2020-03-30] MEDS: HEPARIN 5,000 UNIT/ML VIAL SQ SCH ×2 (09:58→20:31)
[2020-03-30] MEDS: cefTRIAXone 1 GM VIAL IV SCH (09:58)
[2020-03-30] MEDS: CLOPIDOGREL 75 MG TABLET PO SCH (09:58)
[2020-03-30] MEDS: DOCUSATE SODIUM 100 MG CAPSULE PO SCH ×2 (09:59→21:21)
[2020-03-30] MEDS: DEXAMETHASONE 4 MG TABLET PO SCH (09:59)
[2020-03-30] MEDS: LOSARTAN 50 MG TABLET PO SCH ×2 (09:59→20:31)
[2020-03-30] MEDS: CYANOCOBALAMIN (VITAMIN B-12) 500 MCG TABLET PO SCH (09:59)
[2020-03-30] MEDS: VITAMIN B COMPLEX 1 CAPSULE PO SCH (09:59)
[2020-03-30] MEDS: ASPIRIN 81 MG TAB.CHEW PO SCH (09:59)
[2020-03-30] MEDS: OLOPATADINE 0.2% OU SCH ×2 (10:00→21:21)
[2020-03-30] MEDS: AZITHROMYCIN 500 MG in DEXTROSE 5% IN WATER 250 ML IV SCH (10:09)
[2020-03-30] MEDS ORDERED: DARBEPOETIN ALFA 100 MCG/ML VIAL SQ SCH (11:00)
--- NOTE | 2020-03-30 13:44 | Internal Med Progress Note ---
SUBJECTIVE Subjective Patient information: Note initiated : 03/30/20 at 1:41 pm Service Date, if different from initiated Date: [] Patient: Iris Dixon a 54 y/o F admitted on 03/28/20 for shortness of breath. Chief Complaint: [] Ms. Dixon is a 54 year old F with a history of end-stage renal disease on dialysis, type 2 diabetes, and anemia who presented to the ER due to shortness of breath. As per patient, she was diagnosed with positive COVID-19 on last Wednesday last week. She developed the fever, cough and the shortness of breath on Wednesday. She also complains of mild headache and mild nausea. She also reports that she has been having watery diarrhea for 4 days, many bowel movemen ts a day. In the ER, she was found to have oxygen desaturation 80+. Chest x-ray showed Small patchy right basilar infiltrate. Small developing infiltrate left midlung. When I saw this patient, other than the symptoms mentioned above, she denied chest pain, abdominal pain, or dysuria. 03/29 Pt told me that she still has diarrhea but improving. Denies fever/chills. She is not a candidate for remdesivir due to end-stage renal disease She is now on 2.5 L Hemoglobin 7.7 No overnight events 03/30 Patient feels better. She is now on room air to 1 L with good oxygen saturation. But she still has watery diarrhea about 4 bowel movements during the day and night. I feel her diarrhea could be ralated to viral infection. C diff pending. Otherwise she denies fever, chills, nausea or vomiting. BG high. Added lantus 10 units daily. No overnight events Review of Systems Review of systems: Positive for fever, shortness of breath, and diarrhea. All other systems were reviewed and negative. Constitutional Vitals: Vital Signs Temp Pulse Resp BP Pulse Ox 98.9 F 70 20 132/69 95 03/30/20 12:00 03/30/20 12:00 03/30/20 12:00 03/30/20 12:00 03/30/20 12:00 Period Temp Pulse Resp BP Sys/Bronson Pulse Ox Last 24 Hr 97.1 F-98.9 F 60-80 97-149/51-71 94-98 Intake and Output 03/29/20 03/30/20 03/30/20 21:59 05:59 13:59 Intake Total 800 890 Output Total 3400 Balance -2600 890 Weight 87.952 kg Intake & Output: Intake & Output 03/29/20 03/30/20 03/30/20 21:59 05:59 13:59 Intake Total 800 890 Output Total 3400 Balance -2600 890 Weight 87.952 kg Intake: Nourishment/Supplement quantity 200 (ml) IV 250 Zithromax 500 mg In Dextrose 5% 250 in Water 250 ml @ 250 mls/hr IV Q24H [facility] Rx#:[id number] Oral 600 640 Output: Hemodialysis UF 3400 Other: Meal Dinner Percent of Meal Consumed 100% Feeding Ability Independent Nourishment/Supplement name Nepro Stool Size Moderate Moderate Moderate Stool Color Brown Brown Brown Green Stool Consistency Loose Loose Loose # Voids 1 2 # Bowel Movements 1 1 Additional findings Additional findings: General - No acute distress Eyes - PERRLA, EOM intact ENT no rhinorrhea, no noticeable or palpable swelling, no redness or rash around throat or on face Neck supple, no JVD, no thyromegaly Respiratory: Lungs - diminshed BS, no use of accessary muscles. Cardiovascular - RRR no m/r/g, GI - Normal bowel sounds, no distended, soft. Extremeties - No edema, cyanosis or clubbing Hemo/lymphatic/immune no lymphadenopathy Neurological Alert and oriented x 3, no focal neurological deficits. Psychiatry flat affect OBJ DATA Labs CBC & Chem 7: 03/30/20 06:03 03/30/20 06:03 Labs: Abnormal Lab Results 03/30/20 03/30/20 03/29/20 06:03 06:03 06:01 RBC 2.41 L 2.13 L Hgb 8.7 L 7.7 L Hct 26.1 L 23.2 L MCV 108.3 H 108.9 H MCH 36.1 H 36.2 H Lymph % (Auto) 14.5 L [place] % (Auto) 15.1 H Lymph # (Auto) 0.74 L 1.41 L D-Dimer Sodium 132 L Chloride 91 L Carbon Dioxide BUN 30 H Creatinine 5.9 H* Glucose 265 H Hemoglobin A1c Calcium 8.5 L Ferritin C-Reactive Protein NT-Pro-B Natriuret Pep 25-OH Vitamin D Total Procalcitonin 03/29/20 03/28/20 03/28/20 06:01 11:01 11:01 RBC Hgb Hct MCV MCH Lymph % (Auto) [place] % (Auto) Lymph # (Auto) D-Dimer Sodium 132 L Chloride 92 L Carbon Dioxide BUN 44 H Creatinine 8.6 H* Glucose 126 H Hemoglobin A1c Calcium 7.8 L Ferritin C-Reactive Protein NT-Pro-B Natriuret Pep 3261.0 H 25-OH Vitamin D Total 13.56 L Procalcitonin 0.80 H 03/28/20 03/28/20 03/27/20 11:00 11:00 23:58 RBC Hgb Hct MCV MCH Lymph % (Auto) [place] % (Auto) Lymph # (Auto) D-Dimer 2.02 H Sodium Chloride 92 L Carbon Dioxide 31 H BUN Creatinine 5.0 H* Glucose 148 H Hemoglobin A1c 9.0 H Calcium 8.5 L Ferritin > 2000.0 H C-Reactive Protein 8.70 H NT-Pro-B Natriuret Pep 25-OH Vitamin D Total Procalcitonin 03/27/20 23:58 RBC 2.28 L Hgb 8.3 L Hct 24.4 L MCV 107.0 H MCH 36.4 H Lymph % (Auto) [place] % (Auto) Lymph # (Auto) 1.02 L D-Dimer Sodium Chloride Carbon Dioxide BUN Creatinine Glucose Hemoglobin A1c Calcium Ferritin C-Reactive Protein NT-Pro-B Natriuret Pep 25-OH Vitamin D Total Procalcitonin Meds: Medications Acetaminophen (Tylenol) 650 mg PO Q6HP PRN; Protocol PRN Reason: Per Pain Protocol/Fever > 101 Last Admin: 03/30/20 08:01 Dose: 650 mg Documented by: Albuterol Sulfate (Ventolin) 2.5 mg INH Q4HP PRN PRN Reason: Shortness Of Breath Albuterol Sulfate (Ventolin) 2 puff INH Q6HP PRN PRN Reason: shortness of breath or wheezin Aspirin (Aspirin) 81 mg PO QDAY [facility] Last Admin: 03/30/20 09:59 Dose: 81 mg Documented by: Calcitriol (Rocaltrol) 0.25 mcg PO MoWeFr@1600 [facility] Last Admin: 03/29/20 17:02 Dose: 0.25 mcg Documented by: Calcium Acetate (Phoslo) 1,334 mg PO TIDCC [facility] Last Admin: 03/30/20 12:30 Dose: 1,334 mg Documented by: Calcium Carbonate/Glycine (Tums) 200 mg PO TIDP PRN PRN Reason: Heartburn Carvedilol (Coreg) 12.5 mg PO BIDCC [facility] Last Admin: 03/30/20 08:02 Dose: 12.5 mg Documented by: Ceftriaxone Sodium (Rocephin) 1 gm IV DAILY [facility] Last Admin: 03/30/20 09:58 Dose: 1 gm Documented by: Clonidine HCl (Catapres) 0.1 mg PO DAILYP PRN PRN Reason: SBP>160, DBP>90 Clopidogrel Bisulfate (Plavix) 75 mg PO QDAY [facility] Last Admin: 03/30/20 09:58 Dose: 75 mg Documented by: Cyanocobalamin (Vitamin B-12) 1,000 mcg PO DAILY [facility] Last Admin: 03/30/20 09:59 Dose: 1,000 mcg Documented by: Darbepoetin Shashank (Aranesp) 100 mcg SQ Sa@1100 [facility] Last Admin: 03/30/20 10:42 Dose: 100 mcg Documented by: Dexamethasone (Decadron) 6 mg PO DAILY [facility] Last Admin: 03/30/20 09:59 Dose: 6 mg Documented by: Dextrose (Dextrose 50%) 0 ml IV UD PRN PRN Reason: Hypoglycemia Diagnostic Test (Pha) (Accu-Chek) 1 each FS ACHS [facility] Last Admin: 03/30/20 12:30 Dose: 1 each Documented by: Docusate Sodium (Colace) 100 mg PO BID [facility] Last Admin: 03/30/20 09:59 Dose: 100 mg Documented by: Furosemide (Lasix) 80 mg PO DAILY [facility] Last Admin: 03/30/20 09:55 Dose: 80 mg Documented by: Glipizide (Glucotrol Xl) 2.5 mg PO QDAY [facility] Glucose (Insta-Glucose) 15 gm PO PRN PRN PRN Reason: Hypoglycemia Heparin Sodium (Porcine) (Heparin) 5,000 unit SQ Q12 [facility] Last Admin: 03/30/20 09:58 Dose: 5,000 unit Documented by: Albumin Human (Buminate) 12.5 gm in 50 mls @ 100 mls/hr IV Q1H PRN PRN Reason: hypotension on HD Insulin Glargine (Lantus) 10 unit SQ DAILY [facility] Insulin Human Lispro (Humalog) 0 unit SQ [facility]; Protocol Last Admin: 03/30/20 12:30 Dose: 10 units Documented by: Losartan Potassium (Cozaar) 50 mg PO BID [facility] Last Admin: 03/30/20 09:59 Dose: 50 mg Documented by: Ondansetron HCl (Zofran) 4 mg IV Q4HP PRN; Protocol PRN Reason: Nausea And Vomiting Last Admin: 03/28/20 02:58 Dose: 4 mg Documented by: Patient Own Medication () 1 dose OU BIDP PRN PRN Reason: allergy symptoms Olopatadine 0.2% (Ophthalmic Solution) 1 dose OU BID [facility] Last Admin: 03/30/20 10:00 Dose: Not Given Documented by: Senna (Senokot) 2 tab PO [facility] Last Admin: 03/29/20 21:32 Dose: Not Given Documented by: Sevelamer Carbonate (Renvela) 2,400 mg PO TIDCC [facility] Last Admin: 03/30/20 12:30 Dose: 2,400 mg Documented by: Simvastatin (Zocor) 40 mg PO HS [facility] Last Admin: 03/29/20 20:55 Dose: 40 mg Documented by: Sodium Chloride (Saline Flush) 10 ml IV Q8 [facility] Last Admin: 03/30/20 05:58 Dose: Not Given Documented by: Vitamin B Complex (Vitamin B Complex) 1 cap PO DAILY [facility] Last Admin: 03/30/20 09:59 Dose: 1 cap Documented by: A/P Narrative A/P Narrative: 1. Acute hypoxic respiratory failure In the ER, she was found to have oxygen desaturation 80+ Pulse ox Oxygen therapy to keep oxygen saturation > 92% She is now on RM to 1 L 2. Pneumonia, Covid 19 or CAP 3. Positive Covid 19 Chest x-ray showed Small patchy right basilar infiltrate. Small developing infiltrate left midlung Blood culture no growth MRSA screen negative Procalcitonin 0.80 D-dimer 2.02 Ferritin > 2000 CRP 8.7 Vitamin D Rocephin and azithromycin Patient is not a candidate for remdesivir due to ESRD Dexamethasone 6 mg p.o. daily Continue aspirin and Plavix. Heparin 5000 mg every 12 hours 4. ESRD on HD [employer] Dr. Wright is on board. Really appreciate it. 5. DM type 2 with nephropathy, A1c 7.6 Renal and a diabetic diet Lantus 10 units daily Insulin sliding scale 6. Anemia, Hb 8.3 on admission, due to ESRD Hemoglobin 8.[address] Wright is on board Repeat HH in morning 7. DVT prophylaxis: Heparin 8. 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
[2020-03-30] MEDS: INSULIN GLARGINE, HUMAN 1 UNIT/0.01 ML SQ SCH (14:29)
[2020-03-30] MEDS: SIMVASTATIN 20 MG TABLET PO SCH (20:32)
[2020-03-30] MEDS: SENNOSIDES 1 TABLET PO SCH (21:22)
[2020-03-31] MEDS ORDERED: INSULIN LISPRO 1 UNIT/0.01 ML UNIT SQ ONE ×2 (01:08→01:26)
[2020-03-31] MEDS: INSULIN LISPRO 1 UNIT/0.01 ML UNIT SQ SCH ×4 (01:23→12:18)
[2020-03-31] MEDS: 0.9 % SODIUM CHLORIDE 10 ML SYRINGE IV SCH (05:13)
[2020-03-31 07:22] LABS: Basophils # (Auto) 0 K/mcL (0.00-0.20); Basophils % (Auto) 0 % (0.0-2.0); Eosinophils # (Auto) 0 K/mcL (0.00-0.70); Eosinophils % (Auto) 0 % (0.0-7.0); Hematocrit 24.5 % (36.0-48.0); Hemoglobin 8.7 g/dL (12.0-15.0); Lymphocytes # (Auto) 0.85 K/mcL (1.50-4.80); Lymphocytes % (Auto) 11.1 % (15.0-49.0); Mean Cell Volume 103.8 fL (80.0-100.0); Mean Corpuscular HGB Conc 35.5 g/dL (31.0-36.0); Mean Platelet Volume 9.8 fL (7.4-10.4); Monocytes # (Auto) 0.77 K/mcL (0.10-0.90); Neutrophils % (Auto) 78.9 % (38.0-78.0); Platelet Count 328 K/mcL (140-440); RBC 2.36 M/mcL (4.00-5.20); WBC 7.7 K/mcL (4.5-11.0)
[2020-03-31] MEDS ORDERED: glipiZIDE 2.5 MG TAB.XL.24H PO SCH (08:00)
[2020-03-31 08:24] LABS: ALT/SGPT 9 U/L (<40); AST/SGOT 14 U/L (<32); Albumin 3.5 gm/dL (3.2-5.2); Albumin/Globulin Ratio 1.1 (1.0-2.3); Alkaline Phosphatase 89 U/L (39-117); Bilirubin,Total 0.3 mg/dL (0.1-1.0); Blood Urea Nitrogen 64 mg/dL (6-20); Calcium 8.7 mg/dL (8.6-10.4); Carbon Dioxide 25 mmol/L (22-30); Chloride 88 mmol/L (96-108); Globulin 3.3 gm/dL (2.2-3.7); Glomerular Filtration Rate 5; Glucose 158 mg/dL (70-105)
[2020-03-31] MEDS: CALCIUM ACETATE 667 MG CAPSULE PO SCH ×2 (09:07→12:18)
[2020-03-31] MEDS: HEPARIN 5,000 UNIT/ML VIAL SQ SCH (09:08)
[2020-03-31] MEDS: cefTRIAXone 1 GM VIAL IV SCH (09:08)
[2020-03-31] MEDS: CARVEDILOL 12.5 MG TABLET PO SCH (09:08)
[2020-03-31] MEDS: SEVELAMER 800 MG TABLET PO SCH ×2 (09:08→12:18)
[2020-03-31] MEDS: INSULIN GLARGINE, HUMAN 1 UNIT/0.01 ML SQ SCH (09:09)
[2020-03-31] MEDS: ASPIRIN 81 MG TAB.CHEW PO SCH (09:09)
[2020-03-31] MEDS: FUROSEMIDE 40 MG TABLET PO SCH (09:09)
[2020-03-31] MEDS: OLOPATADINE 0.2% OU SCH (09:09)
[2020-03-31] MEDS: VITAMIN B COMPLEX 1 CAPSULE PO SCH (09:09)
[2020-03-31] MEDS: CYANOCOBALAMIN (VITAMIN B-12) 500 MCG TABLET PO SCH (09:09)
[2020-03-31] MEDS: LOSARTAN 50 MG TABLET PO SCH (09:10)
[2020-03-31] MEDS: CLOPIDOGREL 75 MG TABLET PO SCH (09:10)
[2020-03-31] MEDS: DEXAMETHASONE 4 MG TABLET PO SCH (09:10)
[2020-03-31] MEDS: DOCUSATE SODIUM 100 MG CAPSULE PO SCH (09:11)
--- NOTE | 2020-03-31 12:10 | Discharge Summary ---
Discharge Provider Provider Patient information: Note initiated : 03/31/20 at 12:01 pm Service Date, if different from initiated Date: [] Patient: Iris Dixon 54 y/o F admitted on 03/28/20 for shortness of breath. Chief Complaint: [] Date of admission: 03/28/20 02:51 Discharge date: 03/31/20 Primary care physician: Goran Wright MD Consults: 03/28/20 Consult to Physician [CONS] Stat Comment: Consulting Provider: Alejo Escudero Reason For Exam: Physician to Consult 03/28/20 10:26 Consult to Physician [CONS] Routine Comment: Consulting Provider: Goran Wright Reason For Exam: Physician to Consult Discharge Meds Discharge Medications Home Medications blood pressure monitor #1 each 11/01/15 [Rx Confirmed 03/28/20 Last Taken 08/18/17 09:00] calcium acetate(phosphat bind) 667 mg capsule 1,334 mg PO .TID c c #180 cap 05/22/19 [Rx Confirmed 03/28/20 Last Taken Unknown] furosemide 40 mg tablet See Rx Instructions PO QAM #90 tab 11/29/19 [Rx Confirmed 03/28/20 Last Taken 03/27/20 22:00] glipizide 2.5 mg tablet, extended release 24 hr 2.5 mg PO QDAY #30 tab 11/29/19 [Rx Confirmed 03/28/20 Last Taken 03/27/20 08:00] rosuvastatin 20 mg tablet 10 mg PO HS #30 tab 11/29/19 [Rx Confirmed 03/28/20 Last Taken 03/27/20 22:00] ketotifen fumarate 0.025 % (0.035 %) eye drops 1 drp OPHTHALMIC BID PRN #5 ml 12/07/19 [Rx Confirmed 03/28/20 Last Taken Unknown] alteplase 2 mg intra-catheter solution 2 mg INTRA-CATHETER BID PRN 12/13/19 [History Confirmed 03/28/20 Last Taken Unknown] calcitriol 0.25 mcg capsule 0.25 mcg PO 3XW 12/13/19 [History Confirmed 03/28/20 Last Taken Unknown] calcium carbonate 200 mg calcium (500 mg) chewable tablet 200 mg PO ONCE PRN tab 12/13/19 [History Confirmed 03/28/20 Last Taken Unknown] cholecalciferol (vitamin D3) 1,250 mcg (50,000 unit) capsule 1,250 mcg PO QMONTH 12/13/19 [History Confirmed 03/28/20 Last Taken Unknown] clonidine HCl 0.1 mg tablet 0.1 mg PO ONCE PRN tab 12/13/19 [History Confirmed 03/28/20 Last Taken Unknown] clopidogrel 75 mg tablet 75 mg PO QDAY 12/13/19 [History Confirmed 03/28/20 Last Taken 03/27/20 08:00] darbepoetin halima in polysorbat 40 mcg/mL in polysorbate injection 50 mcg IV QWEEK ml 12/13/19 [History Confirmed 03/28/20 Last Taken Unknown] heparin (porcine) 1,000 unit/mL injection solution 1,000 unit IV 3XW ml 12/13/19 [History Confirmed 03/28/20 Last Taken Unknown] heparin (porcine) 1,000 unit/mL injection solution 500 unit IV 3XW ml 12/13/19 [History Confirmed 03/28/20 Last Taken Unknown] losartan 50 mg tablet 50 mg PO BID #60 tab 12/13/19 [Rx Confirmed 03/28/20 Last Taken 03/27/20 22:00] olopatadine 0.1 % eye drops 1 drp OPHTHALMIC BID 12/13/19 [History Confirmed 03/28/20 Last Taken Unknown] aspirin 81 mg chewable tablet 81 mg PO QDAY #30 tab 01/02/20 [Rx Confirmed 03/28/20 Last Taken 03/27/20 08:00] vitamin B comp no.3-folic acid 1 mg-vit C 60 mg-biotin 300 mcg tablet 1 tab PO QDAY #30 tab 01/02/20 [Rx Confirmed 03/28/20 Last Taken 03/27/20 08:00] albuterol sulfate 90 mcg/actuation aerosol inhaler 2 puff INHALATION Q6H PRN #6.7 g 01/18/20 [Rx Confirmed 03/28/20 Last Taken 03/27/20 01:00] cyanocobalamin (vitamin B-12) 1,000 mcg capsule 1,000 mcg PO QDAY 01/18/20 [History Confirmed 03/28/20 Last Taken 03/27/20 08:00] carvedilol 12.5 mg PO BID 03/28/20 [History Confirmed 03/28/20 Last Taken Unknown] sevelamer carbonate 2,400 mg PO TID 03/28/20 [History Confirmed 03/28/20 Last Taken 03/27/20 22:00] valacyclovir 500 mg PO DAILY 03/28/20 [History Confirmed 03/28/20 Last Taken Unknown] insulin lispro [Humalog U-100 Insulin] See Rx Instructions .ROUTE .COMPLEX #3 ml 03/31/20 [Rx Last Taken Unknown] COURSE Hospital Course Hospital course: Ms. Dixon is a 54 year old F with a history of end-stage renal disease on di alysis, type 2 diabetes, and anemia who presented to the ER due to shortness of breath. As per patient, she was diagnosed with positive COVID-19 on last Wednesday last week. She developed the fever, cough and the shortness of breath on Wednesday. She also complains of mild headache and mild nausea. She also reports that she has been having watery diarrhea for 4 days, many bowel movements a day. In the ER, she was found to have oxygen desaturation 80+. Chest x-ray showed Small patchy right basilar infiltrate. Small developing infiltrate left midlung. When I saw this patient, other than the symptoms mentioned above, she denied chest pain, abdominal pain, or dysuria. 1. Acute hypoxic respiratory failure In the ER, she was found to have oxygen desaturation 80+ Pulse ox Oxygen therapy to keep oxygen saturation > 92% She has been on RM since yesterday with good saturation. 2. Pneumonia, Covid 19 or CAP 3. Positive Covid 19 Chest x-ray showed Small patchy right basilar infiltrate. Small developing infiltrate left midlung Blood culture no growth MRSA screen negative Procalcitonin 0.80 D-dimer 2.02 Ferritin > 2000 CRP 8.7 Vitamin D will discontinued Rocephin and azithromycin today Patient is not a candidate for remdesivir due to ESRD will discontinue Dexamethasone 6 mg p.o. daily (since 03/29) today. Pt has high BG on steroid. Continue aspirin and Plavix. Heparin 5000 mg every 12 hours 4. ESRD on HD [employer] Dr. Wright is on board. Really appreciate it. 5. DM type 2 with nephropathy, A1c 7.6 Renal and a diabetic diet Lantus 10 units daily Insulin sliding scale Patient blood glucose level has been high since the patient started steroid. Check blood sugar before each meal and at bedtime. Adjust insulin based on sugar level. 6. Anemia, Hb 8.3 on admission, due to ESRD Hemoglobin 8.[address] Wright is on board Interval history 03/29 Pt told me that she still has diarrhea but improving. Denies fever/chills. She is not a candidate for remdesivir due to end-stage renal disease She is now on 2.5 L Hemoglobin 7.7 No overnight events 03/30 Patient feels better. She is now on room air to 1 L with good oxygen saturation. But she still has watery diarrhea about 4 bowel movements during the day and night. I feel her diarrhea could be ralated to viral infection. C diff pending. Otherwise she denies fever, chills, nausea or vomiting. BG high. Added lantus 10 units daily. No overnight events 03/31 Patient feels very fine. Does not have any complaints. She wants to go home. CM okay to home. Her dialysis is due tomorrow. [facility]. 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 Repeat hemoglobin (CBC) and electrolytes (CMP) in 3 days. She needs to continue to be on quarantine. Call PCP for medical issues. Discharge diagnosis: respiratory failure, pneumonia Time Spent with Patient Time attestation: Total time spent providing and/or coordinating discharge services: EXAM Constitutional Vitals: Temp Pulse Resp BP Pulse Ox 98.1 F 65 18 136/62 93 03/31/20 08:00 03/31/20 08:00 03/31/20 08:00 03/31/20 08:00 03/31/20 10:00 Additional findings Additional findings: General - No acute distress Eyes - PERRLA, EOM intact ENT no rhinorrhea, no noticeable or palpable swelling, no redness or rash around throat or on face Neck supple, no JVD, no thyromegaly Respiratory: Lungs - diminshed BS (improved), no use of accessary muscles. Cardiovascular - RRR no m/r/g, GI - Normal bowel sounds, no distended, soft. Extremeties - No edema, cyanosis or clubbing Hemo/lymphatic/immune no lymphadenopathy Neurological Alert and oriented x 3, no focal neurological deficits. Psychiatry flat affect Discharge Data Data Completed and Pending Labs on day of discharge: Labs from last 24 hours 03/31/20 03/31/20 06:02 06:02 WBC 7.7 RBC 2.36 L Hgb 8.7 L Hct 24.5 L MCV 103.8 H MCH 36.9 H MCHC 35.5 RDW 13.0 Plt Count 328 MPV 9.8 Neut % (Auto) 78.9 H Lymph % (Auto) 11.1 L [place] % (Auto) 10.0 Eos % (Auto) 0 Baso % (Auto) 0 Lymph # (Auto) 0.85 L [place] # (Auto) 0.77 Eos # (Auto) 0 Baso # (Auto) 0 Absolute Neutrophils 6.05 Sodium 131 L Potassium 4.4 Chloride 88 L Carbon Dioxide 25 Anion Gap 18.0 H BUN 64 H Creatinine 8.5 H* GFR Calculation 5 Glucose 158 H Calcium 8.7 Total Bilirubin 0.3 AST 14 ALT 9 Alkaline Phosphatase 89 Total Protein 6.8 Albumin 3.5 Globulin 3.3 Albumin/Globulin Ratio 1.1 Preliminary micro results at discharge 03/28/20 10:55 Blood Culture - Preliminary Blood 03/28/20 10:51 Blood Culture - Preliminary Blood Discharge Plan Patient/Caregiver Discharge Instructions Activity: increase activity as tolerated Diet: Renal/Consistent Carbs Instructions: COVID-19 Activity Restrictions/Additional Instructions: follow with PCP in 3 days and 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 Repeat hemoglobin (CBC) and electrolytes (CMP) in 3 days. continue to be on quarantine. Call PCP for medical issues. Prescriptions: New insulin lispro [Humalog U-100 Insulin] 100 unit/mL Solution See Rx Instructions .ROUTE .COMPLEX Qty: 3 RF: 0 Continued calcium acetate(phosphat bind) 667 mg capsule 1,334 mg PO .TID c c Qty: 180 RF: 11 rosuvastatin [Crestor] 20 mg tablet 10 mg PO HS Qty: 30 RF: 4 furosemide 40 mg tablet See Rx Instructions PO QAM Qty: 90 RF: 11 glipizide 2.5 mg tablet extended release 24hr 2.5 mg PO QDAY Qty: 30 RF: 11 ketotifen fumarate [Allergy Eye (ketotifen)] 0.025 % (0.035 %) drops 1 drp OPHTHALMIC BID PRN (Reason: allergy symptoms) Qty: 5 RF: 11 alteplase 2 mg recon soln 2 mg intra-catheter BID PRN (Reason: affected catheter) RF: 0 Aranesp (in polysorbate) 40 mcg/mL solution 50 mcg IV QWEEK RF: 0 calcitriol 0.25 mcg capsule 0.25 mcg PO 3XW RF: 0 clonidine HCl 0.1 mg tablet 0.1 mg PO ONCE PRN (Reason: Hypertension) RF: 0 cholecalciferol (vitamin D3) 1,250 mcg (50,000 unit) capsule 1,250 mcg PO QMONTH RF: 0 heparin (porcine) 1,000 unit/mL solution 500 unit IV 3XW RF: 0 heparin (porcine) 1,000 unit/mL solution 1,000 unit IV 3XW RF: 0 losartan 50 mg tablet 50 mg PO BID Qty: 60 RF: 11 olopatadine 0.1 % drops 1 drp OPHTHALMIC BID RF: 0 clopidogrel 75 mg tablet 75 mg PO QDAY RF: 0 calcium carbonate [Tums] 200 mg calcium (500 mg) tablet,chewable 200 mg PO ONCE PRN (Reason: Heartburn) RF: 0 aspirin 81 mg tablet,chewable 81 mg PO QDAY Qty: 30 RF: 11 Nephro-Ofelia Rx 1-60-300 mg-mg-mcg tablet 1 tab PO QDAY Qty: 30 RF: 11 cyanocobalamin (vitamin B-12) 1,000 mcg capsule 1,000 mcg PO QDAY RF: 0 albuterol sulfate [Proventil HFA] 90 mcg/actuation HFA aerosol inhaler 2 puff INHALATION Q6H PRN (Reason: shortness of breath or wheezing) Qty: 6.7 RF: 2 carvedilol 12.5 mg Tablet 12.5 mg PO BID RF: 0 valacyclovir 500 mg tablet 500 mg PO DAILY RF: 0 sevelamer carbonate 800 mg tablet 2,400 mg PO TID RF: 0 Discontinued cetirizine 10 mg tablet 10 mg PO QDAY PRN (Reason: allergy symptoms) Qty: 30 RF: 11 carvedilol 25 mg tablet 25 mg PO Q12H Qty: 60 RF: 12 hydroxyzine HCl 10 mg tablet 10 mg PO Q6HP PRN (Reason: Itching) RF: 0 ondansetron HCl 2 mg/mL solution 4 mg IM ONCE PRN (Reason: Nausea) RF: 0 ondansetron HCl 4 mg tablet 4 mg PO Q8H PRN (Reason: Nausea) RF: 0 acetaminophen 325 mg capsule 325 mg PO Q4HP PRN (Reason: Pain) RF: 0 omega-3 fatty acids [Fish Oil Concentrate] 1,000 mg capsule 1,000 mg PO DAILY RF: 0 No Action (DME) blood pressure monitor kit See Dose Instructions .ROUTE .MEDSUPPLY Qty: 1 RF: 0 Other Ambulatory Orders: Complete Blood Count (Routine) Timeframe: 3 Days Facility: [facility] - Location: Laboratory Ordered By: Alejo Escudero Comprehensive Metabolic Panel (Routine) Timeframe: 3 Days Facility: [facility] - Location: Laboratory Ordered By: Alejo Escudero Follow Up Plan Follow up with: Unknown [Outside] (follow with PCP in 3 days and 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 Repeat hemoglobin (CBC) and electrolytes (CMP) in 3 days. continue to be on quarantine. Call PCP for medical issues) Goran Wright MD [Primary Care Provider] - (in 3 days) Patient Disposition: Home, Self-Care Discharge Orders: Discharge Order (Routine); Ordered 03/31/20 Ordered By: Alejo Escudero QUALITY VTE Deep Vein Thrombosis/Pulmonary Embolism Present on Admission: No
[2020-04-04] MEDS ORDERED: DARBEPOETIN ALFA 40 MCG/ML VIAL IV SCH (09:00)
== END 2020-03-31 13:20 | disposition home or self-care (01) | DRG 189 ==
LOC: ED 23:15 → MEDSUR 03-28 02:51
PROVIDERS: ADMIT Internal Medicine; ATTEND Internal Medicine

== ENCOUNTER 2021-09-08 03:56 | Inpatient (IN) ==
[2021-09-08] MEDS ORDERED: IOPAMIDOL 100 ML BOTTLE IV ONE ×2 (03:57)
--- NOTE | 2021-09-08 04:41 | Emergency Department Note ---
HPI General Chief complaint: Dizziness Stated complaint: dizziness Time Seen by Provider: 09/08/21 04:40 Source: patient and family (Signif Other = lives across street) Mode of arrival: wheelchair Limitations: other (poor historian in some ways. very detailed and repetative in others.) History of Present Illness HPI Narrative: Narrative: 56 y.o. Female presents with confusion x 1 week and dizziness x 1 day. feels like she is drunk. speech is not fluid like normal. feels she adds a word or two that is not needed into her sentences. became confused when she read the bible, which has not happened to her before. Feels like her head is in a vice. teeth hurt. face and judaism hurt. 8 out of 10. constant. worse with time. Did start antibiotics for a 'sinusitis' which might have helped. May be associated with Right cochlear Inplant performed 2 months ago (07/14/21) at [facility] in [place] by [place] [facility] Dr. Baker. Related Data Home Medications Medication Instructions Recorded Confirmed clopidogrel 75 mg tablet 75 mg PO QDAY 12/13/19 03/28/20 olopatadine 0.1 % eye drops 1 drp OPHTHALMIC BID 12/13/19 03/28/20 valacyclovir 500 mg tablet 500 mg PO DAILY 03/28/20 03/28/20 ergocalciferol (vitamin D2) 1,250 1,250 mcg PO QMONTH 08/05/20 mcg (50,000 unit) capsule Previous Rx's Medication Instructions Recorded blood pressure monitor #1 each 11/01/15 albuterol sulfate 90 mcg/actuation 2 puff INHALATION Q6H PRN #6.7 g 01/18/20 aerosol inhaler (Proventil HFA) insulin lispro 100 unit/mL See Rx Instructions .ROUTE 03/31/20 subcutaneous solution (Humalog .COMPLEX #3 ml U-100 Insulin) furosemide 40 mg tablet 80 mg PO BID #120 tab 10/01/20 sevelamer carbonate 800 mg tablet 2,400 mg PO TID #300 tab 12/09/20 rosuvastatin 20 mg tablet (Crestor) 10 mg PO HS #30 tab 12/10/20 aspirin 81 mg chewable tablet 81 mg PO QDAY #30 tab 01/08/21 vitamin B comp no.3-folic acid 1 1 tab PO QDAY #30 tab 01/08/21 mg-vit C 60 mg-biotin 300 mcg tablet (Nephro-Ofelia Rx) cyanocobalamin (vitamin B-12) 1,000 mcg PO QDAY #30 tab 02/04/21 1,000 mcg tablet polyethylene glycol 3350 17 17 g PO BID PRN #510 g 06/02/21 gram/dose oral powder (Miralax) omega 2-gik-zev-fish oil 500 mg 1 cap PO BID #60 tab 06/06/21 (200mg-300mg)-1,000 mg capsule (Ultra [place]-3) isosorbide dinitrate 10 mg tablet See Rx Instructions PO TID #90 tab 06/24/21 losartan 50 mg tablet See Rx Instructions PO BID #60 tab 06/24/21 calcium acetate(phosphat bind) 667 1,334 mg PO .TID c c #180 cap 07/01/21 mg capsule meclizine 12.5 mg tablet 12.5 mg PO BID PRN #5 tab 07/05/21 sodium chloride 0.65 % nasal spray 2 spray INTRANASAL Q4H PRN #15 ml 07/05/21 aerosol ([place] Nasal) glipizide 5 mg tablet 5 mg PO BID #60 tab 07/16/21 ondansetron 4 mg disintegrating 4 mg PO BID PRN #30 tab 07/21/21 tablet cetirizine 10 mg tablet 10 mg PO QDAY #30 tab 08/04/21 Allergies Allergy/AdvReac Type Severity Reaction Status Date / Time codeine Allergy Severe Itching Verified 07/04/21 21:54 sulfamethoxazole Allergy Severe Unknown Verified 07/04/21 21:54 [From ] trimethoprim [From ] Allergy Severe Unknown Verified 07/04/21 21:54 Review of Systems ROS ROS Narrative: Narrative: Constitutional: Denies fever Eyes: Denies eye discharge ENT ED: Reports hearing loss Cardiovascular: Denies chest pain Respiratory: Denies shortness of breath Gastrointestinal: Denies abdominal pain Musculoskeletal: Denies back pain Neurological: Reports headache and dizziness Hematological/Lymphatic: Reports other (anti coag with dialysis. concerned she had a clot at dialysis.) [facility] Narrative Patient History Narrative: Narrative: Medical/Surgical/Family History All Active Problems (Updated 09/08/21 @ 10:58 by Rodger Kelley MD) History of nephrectomy (Chronic) Left flank pain (Acute) Diabetes (Chronic) Low blood sugar (Chronic) Edema (Chronic) DM type 2 (diabetes mellitus, type 2) (Chronic) Anemia (Chronic) Herpes (Chronic) Hypertensive disorder (Chronic) Deafness in right ear (Chronic) Vitamin D deficiency (Chronic) Burn of abdomen (Chronic) Vitamin B12 deficiency (Chronic) Magnesium deficiency (Chronic) Hyperlipidemia (Chronic) Allergy to animals (Chronic) Proteinuria (Chronic) Astigmatism (Chronic) Myopia (Chronic) Presbyopia (Chronic) Nonexudative age-related macular degeneration (Chronic) URI (upper respiratory infection) (Chronic) Visual disturbance (Chronic) Acute UTI (Chronic) Microscopic hematuria (Chronic) Acute respiratory disease (Chronic) Dysuria (Chronic) Solitary kidney, acquired (Chronic) CKD (chronic kidney disease) stage 3, GFR 30-59 ml/min (Acute) Proteinuria due to type 2 diabetes mellitus (Chronic) Chronic Kidney Disease (Chronic) Solitary left kidney (Chronic) Anemia (Acute) Nephrotic range proteinuria (Chronic) Chronic kidney disease, stage III (moderate) (Chronic) YAZ positive (Acute) ESR raised (Acute) Secondary hyperparathyroidism of renal origin (Acute) ESRD on hemodialysis (Acute) HTN (hypertension), benign (Acute) COVID-19 (Acute) Anemia in ESRD (end-stage renal disease) (Acute) Sudden hearing loss (Acute) Tinnitus (Acute) Hypertensive urgency (Acute) Accelerated hypertension (Acute) Pulmonary edema (Acute) Acute dyspnea (Acute) Constipation due to slow transit (Acute) Light-headed feeling (Acute) Dizziness (Acute) Nausea (Acute) End-stage renal disease (ESRD) (Acute) Anemia (Acute) Sinusitis (Acute) Congestion of nasal sinus (Acute) Vertigo (Acute) Dizzinesses (Acute) Acute confusion (Acute) Chronic kidney failure (Acute) Medical History (Updated 09/08/21 @ 10:58 by Rodger Kelley MD) Acute respiratory disease Acute UTI Allergy to animals YAZ positive Anemia Astigmatism Burn of abdomen Lower RT abdomen Chronic kidney disease, stage III (moderate) Deafness in right ear Diabetes DM type 2 (diabetes mellitus, type 2) Dysuria Edema ESR raised Herpes History of gestational diabetes Hyperlipidemia Hypertensive disorder Left flank pain Low blood sugar Magnesium deficiency Microscopic hematuria Myopia Nonexudative age-related macular degeneration Presbyopia Proteinuria SLE (systemic lupus erythematosus) Solitary kidney, acquired URI (upper respiratory infection) Visual disturbance Vitamin B12 deficiency Vitamin D deficiency Surgical History History of section History of nephrectomy 1997 right Family History Family/Other Diabetes mellitus, type II Aunt Brother Diabetes mellitus, type II Sister Diabetes mellitus, type II Father Hypoglycemia Family/Other Diabetes mellitus, type II Uncle Social History Smoking Status: Never smoker Alcohol Intake Frequency: does not drink Substance Use: does not use Exam Narrative Narrative: Narrative: General Limitations: other (poor historian in some ways. very detailed and repetative in others.) General appearance: Present alert, in distress and other (becomes agitated) Head Head: Present normocephalic Eye Eye: Present EOMI ENT ENT: Present other (Left TM clear. Rt. TM only partially seen) Neck Neck: Present normal inspection and trachea midline Respiratory Respiratory: Absent respiratory distress Cardiovascular Cardiovascular: Present regular rate and normal rhythm Adbominal Abdominal: Absent tenderness Back Back: Present normal inspection Neurological Neurological: Present alert Psychiatric Psychiatric: Present agitated Skin Skin: Present warm (WNL) and dry Course Vital Signs Vital signs: Vital Signs Temperature 97.8 F 09/08/21 03:58 Pulse Rate 84 09/08/21 03:58 Respiratory Rate 18 09/08/21 03:58 Blood Pressure 221/124 09/08/21 03:58 Pulse Oximetry (%) 96 09/08/21 03:58 Temperature 97.8 F 09/08/21 03:58 Pulse Rate 82 09/08/21 10:31 Respiratory Rate 18 09/08/21 03:58 Blood Pressure 177/78 09/08/21 10:31 Pulse Oximetry (%) 95 09/08/21 10:31 [facility] MDM Narrative Medical decision making narrative: Narrative: 56 y.o F with Dizziness of 1 day and confusion x 1 week. Differential DX: CVA, encephalopathy, intoxication, Intracranial tumor/mass (neg head CT 2 months ago), electrolyte abnormality, glucose abnormality. other. CT of Head initially raised concern about possible Mastoiditis. no other acute pathology. Re-read by [facility] Rad. doc = NAD. NIHSS score was '0'. test of Schew was negative. [facility] placed to [facility] to speak to ENT to ask about Mastoiditis possibility at Rt. coclear Inplant site. CBC unremarkable except MCV elevated at 107. CMP had Sodium 132. BUN and CR. very high (dialysis pt). Glucose high at 284. UA neg. Case signed out to colleague Dr. [place] who assumes care and will determine disposition. Lab Data Result diagrams: 09/08/21 05:08 09/08/21 05:08 Labs: Lab Results 09/08/21 09/08/21 09/08/21 Range/Units 05:08 05:08 05:08 WBC 8.9 (4.5-11.0) K/mcL RBC 3.81 (3.59-5.38) M/mcL Hgb 13.9 (11.2-15.7) g/dL Hct 40.9 (34.1-44.9) % MCV 107.3 H (80.0-100.0) fL MCH 36.5 H (26.0-34.0) pg MCHC 34.0 (31.0-36.0) g/dL RDW 14.4 (11.5-14.5) % Plt Count 189 (140-440) K/mcL MPV 9.7 (7.4-10.4) fL Neut % (Auto) 79.9 H (38.0-78.0) % Lymph % (Auto) 13.2 L (15.5-49.0) % [place] % (Auto) 5.3 (1.0-12.0) % Eos % (Auto) 1.1 (0.0-7.0) % Baso % (Auto) 0.5 (0.0-2.0) % Lymph # (Auto) 1.17 L (1.50-4.80) K/mcL [place] # (Auto) 0.47 (0.10-0.90) K/mcL Eos # (Auto) 0.10 (0.00-0.70) K/mcL Baso # (Auto) 0.04 (0.00-0.30) K/mcL Absolute Neutrophils 7.09 (1.80-8.00) K/mcL Sodium 132 L (133-145) mmol/L Potassium 4.9 (3.3-5.1) mmol/L Chloride 94 L (96-108) mmol/L Carbon Dioxide 19 L (22-30) mmol/L Anion Gap 19.0 H (8.0-16.0) BUN 50 H (6-20) mg/dL Creatinine 8.5 H* (0.6-1.1) mg/dL GFR Calculation 5 Glucose 284 H (70-105) mg/dL Calcium 9.1 (8.6-10.4) mg/dL Total Bilirubin 0.5 (0.1-1.0) mg/dL AST 23 (<32) U/L ALT 23 (<40) U/L Alkaline Phosphatase 124 H (39-117) U/L Ammonia 38 (11-51) umol/L Total Protein 7.1 (5.9-8.4) gm/dL Albumin 4.3 (3.2-5.2) gm/dL Globulin 2.8 (2.2-3.7) gm/dL Albumin/Globulin Ratio 1.5 (1.0-2.3) Folate (4.2-19.9) ng/mL Urine Color Urine Appearance (Clear) Urine pH (5.0-9.0) Ur Specific [place] (1.000-1.035) Urine Protein (Negative) mg/dL Urine Glucose (UA) (Negative) mg/dL Urine Ketones (Negative) mg/dL Urine Occult Blood (Negative) mg/dL Urine Nitrate (Negative) Urine Bilirubin (Negative) mg/dL Urine Urobilinogen mg/dL Ur Leukocyte Esterase (Negative) /uL Urine RBC (0-3) /hpf Urine WBC (0-4) /hpf Ur Squamous Epith Cells (0-4) /hpf Urine Bacteria (0) /hpf Ur Culture Indicated? Ethyl Alcohol (<0.010) gm/dL 09/08/21 09/08/21 09/08/21 Range/Units 05:36 07:02 07:02 WBC (4.5-11.0) K/mcL RBC (3.59-5.38) M/mcL Hgb (11.2-15.7) g/dL Hct (34.1-44.9) % MCV (80.0-100.0) fL MCH (26.0-34.0) pg MCHC (31.0-36.0) g/dL RDW (11.5-14.5) % Plt Count (140-440) K/mcL MPV (7.4-10.4) fL Neut % (Auto) (38.0-78.0) % Lymph % (Auto) (15.5-49.0) % [place] % (Auto) (1.0-12.0) % Eos % (Auto) (0.0-7.0) % Baso % (Auto) (0.0-2.0) % Lymph # (Auto) (1.50-4.80) K/mcL [place] # (Auto) (0.10-0.90) K/mcL Eos # (Auto) (0.00-0.70) K/mcL Baso # (Auto) (0.00-0.30) K/mcL Absolute Neutrophils (1.80-8.00) K/mcL Sodium (133-145) mmol/L Potassium (3.3-5.1) mmol/L Chloride (96-108) mmol/L Carbon Dioxide (22-30) mmol/L Anion Gap (8.0-16.0) BUN (6-20) mg/dL Creatinine (0.6-1.1) mg/dL GFR Calculation Glucose (70-105) mg/dL Calcium (8.6-10.4) mg/dL Total Bilirubin (0.1-1.0) mg/dL AST (<32) U/L ALT (<40) U/L Alkaline Phosphatase (39-117) U/L Ammonia (11-51) umol/L Total Protein (5.9-8.4) gm/dL Albumin (3.2-5.2) gm/dL Globulin (2.2-3.7) gm/dL Albumin/Globulin Ratio (1.0-2.3) Folate > 20.0 H (4.2-19.9) ng/mL Urine Color Yellow Urine Appearance Clear (Clear) Urine pH 8.0 (5.0-9.0) Ur Specific [place] 1.008 (1.000-1.035) Urine Protein 100 A (Negative) mg/dL Urine Glucose (UA) >=500 A (Negative) mg/dL Urine Ketones Negative (Negative) mg/dL Urine Occult Blood 0.03 (Negative) mg/dL Urine Nitrate Negative (Negative) Urine Bilirubin Negative (Negative) mg/dL Urine Urobilinogen Negative mg/dL Ur Leukocyte Esterase Negative (Negative) /uL Urine RBC 1 (0-3) /hpf Urine WBC 1 (0-4) /hpf Ur Squamous Epith Cells 1 (0-4) /hpf Urine Bacteria None (0) /hpf Ur Culture Indicated? No Ethyl Alcohol < 0.010 (<0.010) gm/dL Discharge Plan Patient/Caregiver Discharge Instructions Pt seen by ENTRY LEVEL PROGRAMMER/PA only: No Clinical Impression: Dizzinesses, Acute confusion Chronic kidney failure Qualifiers: Chronic kidney disease stage: stage 5 Qualified Code(s): N18.5 - Chronic kidney disease, stage 5 Patient Disposition: Still a Patient Condition: Fair Follow up with: Not On Staff,Physician [Primary Care Provider] - Prescriptions: No Action olopatadine 0.1 % drops 1 drp OPHTHALMIC BID 0RF Rx Instructions: 1 gtt in each affected eye (0.1% solution) 2 times a day clopidogrel 75 mg tablet 75 mg PO QDAY 0RF Rx Instructions: 75 mg orally (75 mg tablet) once a day (in the morning) albuterol sulfate [Proventil HFA] 90 mcg/actuation HFA aerosol inhaler 2 puff INHALATION Q6H PRN (Reason: shortness of breath or wheezing) Qty: 6.7 2RF ergocalciferol (vitamin D2) 1,250 mcg (50,000 unit) capsule 1,250 mcg PO QMONTH 0RF furosemide 40 mg tablet 80 mg PO BID Qty: 120 11RF Rx Instructions: New correct dose sevelamer carbonate 800 mg tablet 2,400 mg PO TID Qty: 300 11RF Rx Instructions: must administer with a meal/food. Dose adjustment based on monthly labs at HD unit rosuvastatin [Crestor] 20 mg tablet 10 mg PO HS Qty: 30 11RF aspirin 81 mg tablet,chewable 81 mg PO QDAY Qty: 30 11RF Nephro-Ofelia Rx 1-60-300 mg-mg-mcg tablet 1 tab PO QDAY Qty: 30 11RF cyanocobalamin (vitamin B-12) 1,000 mcg tablet 1,000 mcg PO QDAY Qty: 30 11RF polyethylene glycol 3350 [Miralax] 17 gram/dose powder 17 g PO BID PRN (Reason: constipation) Qty: 510 3RF Rx Instructions: 1 scoop (17 gm) in 4 oz water up to 4 times a day as needed to relieve constipation. Ultra [place]-3 500-1,000 mg capsule 1 cap PO BID Qty: 60 2RF isosorbide dinitrate 10 mg tablet See Rx Instructions PO TID Qty: 90 11RF Rx Instructions: 10 mg orally three times daily and skip evening dose on MWF after dialysis losartan 50 mg tablet See Rx Instructions PO BID Qty: 60 11RF Rx Instructions: The correct dose of Losartan is 50 mg orally BID and skip dose MWF evening after dialysis calcium acetate(phosphat bind) 667 mg capsule 1,334 mg PO .TID c c Qty: 180 11RF glipizide 5 mg tablet 5 mg PO BID Qty: 60 11RF Rx Instructions: New dose and formulation ondansetron 4 mg tablet,disintegrating 4 mg PO BID PRN (Reason: nausea and vomiting) Qty: 30 0RF Rx Instructions: Use as needed for nausea cetirizine 10 mg tablet 10 mg PO QDAY Qty: 30 11RF (DME) blood pressure monitor kit See Dose Instructions .ROUTE .MEDSUPPLY Qty: 1 0RF Dose Instruction: As directed Rx Instructions: As directed to monitor blood pressures at home. valacyclovir 500 mg tablet 500 mg PO DAILY 0RF insulin lispro [Humalog U-100 Insulin] 100 unit/mL Solution See Rx Instructions .ROUTE .COMPLEX Qty: 3 0RF Rx Instructions: Check bg before each meal and at bedtime.Give 1 unit if bg>150; 2 units if bg> 200; give 3 units if bg>250; give 4 units if bg>300; give 5 units if bg>350; give 6 units if bg>400, call PCP or go to the ER immediately. Maximal 20 units/. If pt needs>20 units/day, call PCP. meclizine 12.5 mg tablet 12.5 mg PO BID PRN (Reason: dizziness) Qty: 5 0RF [place] Nasal 0.65 % aerosol,spray 2 spray intranasal Q4H PRN (Reason: nasal congestion) Qty: 15 0RF
[2021-09-08 05:53] LABS: Basophils # (Auto) 0.04 K/mcL (0.00-0.30); Basophils % (Auto) 0.5 % (0.0-2.0); Eosinophils % (Auto) 1.1 % (0.0-7.0); Hematocrit 40.9 % (34.1-44.9); Hemoglobin 13.9 g/dL (11.2-15.7); Lymphocytes # (Auto) 1.17 K/mcL (1.50-4.80); Lymphocytes % (Auto) 13.2 % (15.5-49.0); Mean Cell Volume 107.3 fL (80.0-100.0); Mean Platelet Volume 9.7 fL (7.4-10.4); Monocytes # (Auto) 0.47 K/mcL (0.10-0.90); Monocytes % (Auto) 5.3 % (1.0-12.0); Neutrophils % (Auto) 79.9 % (38.0-78.0); Platelet Count 189 K/mcL (140-440); RBC 3.81 M/mcL (3.59-5.38); Red Cell Distribution Width 14.4 % (11.5-14.5); WBC 8.9 K/mcL (4.5-11.0)
[2021-09-08 06:23] LABS: Appearance,Urine CLEAR (Clear); Bilirubin,Urine Negative (Negative); Color,Urine YELLOW; Culture Indicated,Urine No; Glucose,Urine (UA) >=500 mg/dL (Negative); Ketones,Urine Negative (Negative); Leukocyte Esterase,Urine Negative /uL (Negative); Nitrate,Urine Negative (Negative); Protein,Urine 100 mg/dL (Negative); Specific Gravity,Urine 1.008 (1.000-1.035); Urine Blood 0.03 mg/dL (Negative); Urine RBC 1 /hpf (0-3); Urine Squamous Epithelial Cell 1 /hpf (0-4); Urine WBC 1 /hpf (0-4); Urobilinogen,Urine Negative
[2021-09-08 06:25] LABS: ALT/SGPT 23 U/L (<40); AST/SGOT 23 U/L (<32); Albumin 4.3 gm/dL (3.2-5.2); Albumin/Globulin Ratio 1.5 (1.0-2.3); Alkaline Phosphatase 124 U/L (39-117); Bilirubin,Total 0.5 mg/dL (0.1-1.0); Blood Urea Nitrogen 50 mg/dL (6-20); Calcium 9.1 mg/dL (8.6-10.4); Carbon Dioxide 19 mmol/L (22-30); Chloride 94 mmol/L (96-108); Globulin 2.8 gm/dL (2.2-3.7); Glomerular Filtration Rate 5; Glucose 284 mg/dL (70-105)
[2021-09-08] MEDS ORDERED: INSULIN REGULAR, HUMAN 1 UNIT/0.01 ML UNIT SQ ONE (06:52)
--- NOTE | 2021-09-08 08:03 | Cat Scan Report ---
History: New onset dizziness and confusion TECHNIQUE: The brain was imaged without contrast in axial plane at 2.5 mm intervals. Sagittal and coronal reformats were created. The radiation exposure was limited using dose reduction technology. FINDINGS: There are postoperative changes following prior right-sided mastoidectomy and insertion of a cochlear implant. The implant is well-positioned in the basal turn of the cochlea. The power pack is located in the scalp adjacent to the right parietal bone. The right mastoid fossa is filled with soft tissue material which may be granulation tissue. There is no bone erosion or surrounding soft tissue inflammation. The power pack is creating significant beam hardening artifact. The brain appears normal. There is no evidence of infarct, hemorrhage, edema or mass effect. The ventricles and cisterns are normal. No abnormal extra-axial fluid collection is present. No abnormality is seen in the posterior fossa. Comparison with the prior CT done on 06/30/21 shows the cochlear implant is new. There has been no other significant change. IMPRESSION: No acute abnormality Interpreted and Authenticated by: Adolfo Yee 09/08/21
[2021-09-08 08:41] LABS: Alcohol, Blood < 10.0 mg/dL; Alcohol,Blood < 0.010 gm/dL (<0.010)
--- NOTE | 2021-09-08 09:34 | Emergency Department Note ---
HPI General Chief complaint: Dizziness Stated complaint: dizziness Time Seen by Provider: 09/08/21 04:40 Source: patient Mode of arrival: wheelchair Limitations: no limitations History of Present Illness HPI Narrative: Narrative: 56 yo F w/ h/o ERSD on HD TThSa, DM2, HTN, deafness s/p R cochlear implant in Jun p/w R sided THORNTON, confusion, vertigo, difficulty speaking. She was seen overnight by Dr Kelley who was concerned for mastoiditis and checked a CT head w/o contrast this showed questionable mastoiditis vs postop changes by offsite overnight radiology. This AM however our radiologist sees NAD. Her ENT in [facility] was paged but has not yet returned a call. She was signed out to me with the above Sx. I was concerned for the possibility of posterior CVA given her Hx. She reports that the dizziness is the world "shifting" and circling around her. It is constant, perhaps worse w/ movement but not relieved by rest. It is accompanied by confusion and difficulty w/ memory, which are new for her. She also notes that she was reading something out loud and felt that she was reading "like a 7 year old" struggling to read. This was partially due to issues w/ the words themselves and partially because she was having trouble w/ the pages seeming like they were moving in waves. She notes that she feels "like I'm drunk" when walking. This has all been constant since around Wednesday night or Wednesday morning. Additionally she notes flashes of light in her vision. Related Data Home Medications Medication Instructions Recorded Confirmed clopidogrel 75 mg tablet 75 mg PO QDAY 12/13/19 03/28/20 olopatadine 0.1 % eye drops 1 drp OPHTHALMIC BID 12/13/19 03/28/20 valacyclovir 500 mg tablet 500 mg PO DAILY 03/28/20 03/28/20 ergocalciferol (vitamin D2) 1,250 1,250 mcg PO QMONTH 08/05/20 mcg (50,000 unit) capsule Previous Rx's Medication Instructions Recorded blood pressure monitor #1 each 11/01/15 albuterol sulfate 90 mcg/actuation 2 puff INHALATION Q6H PRN #6.7 g 01/18/20 aerosol inhaler (Proventil HFA) insulin lispro 100 unit/mL See Rx Instructions .ROUTE 03/31/20 subcutaneous solution (Humalog .COMPLEX #3 ml U-100 Insulin) furosemide 40 mg tablet 80 mg PO BID #120 tab 10/01/20 sevelamer carbonate 800 mg tablet 2,400 mg PO TID #300 tab 12/09/20 rosuvastatin 20 mg tablet (Crestor) 10 mg PO HS #30 tab 12/10/20 aspirin 81 mg chewable tablet 81 mg PO QDAY #30 tab 01/08/21 vitamin B comp no.3-folic acid 1 1 tab PO QDAY #30 tab 01/08/21 mg-vit C 60 mg-biotin 300 mcg tablet (Nephro-Ofelia Rx) cyanocobalamin (vitamin B-12) 1,000 mcg PO QDAY #30 tab 02/04/21 1,000 mcg tablet polyethylene glycol 3350 17 17 g PO BID PRN #510 g 06/02/21 gram/dose oral powder (Miralax) omega 3-qrg-ign-fish oil 500 mg 1 cap PO BID #60 tab 06/06/21 (200mg-300mg)-1,000 mg capsule (Ultra Rigby-3) isosorbide dinitrate 10 mg tablet See Rx Instructions PO TID #90 tab 06/24/21 losartan 50 mg tablet See Rx Instructions PO BID #60 tab 06/24/21 calcium acetate(phosphat bind) 667 1,334 mg PO .TID c c #180 cap 07/01/21 mg capsule meclizine 12.5 mg tablet 12.5 mg PO BID PRN #5 tab 07/05/21 sodium chloride 0.65 % nasal spray 2 spray INTRANASAL Q4H PRN #15 ml 07/05/21 aerosol (Bath Nasal) glipizide 5 mg tablet 5 mg PO BID #60 tab 07/16/21 ondansetron 4 mg disintegrating 4 mg PO BID PRN #30 tab 07/21/21 tablet cetirizine 10 mg tablet 10 mg PO QDAY #30 tab 08/04/21 Allergies Allergy/AdvReac Type Severity Reaction Status Date / Time codeine Allergy Severe Itching Verified 07/04/21 21:54 sulfamethoxazole Allergy Severe Unknown Verified 07/04/21 21:54 [From ] trimethoprim [From ] Allergy Severe Unknown Verified 07/04/21 21:54 Review of Systems ROS ROS Narrative: Narrative: All systems ED: reviewed and negative except as stated. PFSH Narrative Patient History Narrative: Narrative: Medical/Surgical/Family History All Active Problems (Updated 09/08/21 @ 16:10 by Michael Carolina MD) Pulmonary edema (Acute) Hypoxia (Acute) History of nephrectomy (Chronic) Left flank pain (Acute) Diabetes (Chronic) Low blood sugar (Chronic) Edema (Chronic) DM type 2 (diabetes mellitus, type 2) (Chronic) Anemia (Chronic) Herpes (Chronic) Hypertensive disorder (Chronic) Deafness in right ear (Chronic) Vitamin D deficiency (Chronic) Burn of abdomen (Chronic) Vitamin B12 deficiency (Chronic) Magnesium deficiency (Chronic) Hyperlipidemia (Chronic) Allergy to animals (Chronic) Proteinuria (Chronic) Astigmatism (Chronic) Myopia (Chronic) Presbyopia (Chronic) Nonexudative age-related macular degeneration (Chronic) URI (upper respiratory infection) (Chronic) Visual disturbance (Chronic) Acute UTI (Chronic) Microscopic hematuria (Chronic) Acute respiratory disease (Chronic) Dysuria (Chronic) Solitary kidney, acquired (Chronic) CKD (chronic kidney disease) stage 3, GFR 30-59 ml/min (Acute) Proteinuria due to type 2 diabetes mellitus (Chronic) Chronic Kidney Disease (Chronic) Solitary left kidney (Chronic) Anemia (Acute) Nephrotic range proteinuria (Chronic) Chronic kidney disease, stage III (moderate) (Chronic) YAZ positive (Acute) ESR raised (Acute) Secondary hyperparathyroidism of renal origin (Acute) ESRD on hemodialysis (Acute) HTN (hypertension), benign (Acute) COVID-19 (Acute) Anemia in ESRD (end-stage renal disease) (Acute) Sudden hearing loss (Acute) Tinnitus (Acute) Hypertensive urgency (Acute) Accelerated hypertension (Acute) Pulmonary edema (Acute) Acute dyspnea (Acute) Constipation due to slow transit (Acute) Light-headed feeling (Acute) Dizziness (Acute) Nausea (Acute) End-stage renal disease (ESRD) (Acute) Anemia (Acute) Sinusitis (Acute) Congestion of nasal sinus (Acute) Vertigo (Acute) Dizzinesses (Acute) Acute confusion (Acute) Chronic kidney failure (Acute) Medical History (Updated 09/08/21 @ 16:10 by Michael Carolina MD) Acute respiratory disease Acute UTI Allergy to animals YAZ positive Anemia Astigmatism Burn of abdomen Lower RT abdomen Chronic kidney disease, stage III (moderate) Deafness in right ear Diabetes DM type 2 (diabetes mellitus, type 2) Dysuria Edema ESR raised Herpes History of gestational diabetes Hyperlipidemia Hypertensive disorder Left flank pain Low blood sugar Magnesium deficiency Microscopic hematuria Myopia Nonexudative age-related macular degeneration Presbyopia Proteinuria SLE (systemic lupus erythematosus) Solitary kidney, acquired URI (upper respiratory infection) Visual disturbance Vitamin B12 deficiency Vitamin D deficiency Surgical History History of section History of nephrectomy 1997 right Family History Family/Other Diabetes mellitus, type II Aunt Brother Diabetes mellitus, type II Sister Diabetes mellitus, type II Father Hypoglycemia Family/Other Diabetes mellitus, type II Uncle Social History Smoking Status: Never smoker Alcohol Intake Frequency: does not drink Substance Use: does not use Exam Narrative Narrative: Narrative: General Limitations: no limitations General appearance: Present alert and in no apparent distress Head Head: Present atraumatic and normocephalic Eye Eye: Present normal appearance, PERRL and EOMI; Absent nystagmus ENT ENT: Present normal oropharynx, mucous membranes moist, TM's normal bilaterally and other (well healed incision w/ no TTP over R mastoid) Neck Neck: Present normal inspection; Absent meningismus Chest Chest: Present normal inspection and symmetric chest wall rise Respiratory Respiratory: Present normal lung sounds bilaterally; Absent respiratory distress, accessory muscle use or decreased breath sounds Cardiovascular Cardiovascular: Present regular rate, normal rhythm, +S1, +S2 and other (2+ B/L radial pulses, LUE AVF w/ +thrill); Absent systolic murmur or diastolic murmur Adbominal Abdominal: Present soft and normal bowel sounds; Absent distention or tenderness Extremities Extremities: Absent pedal edema Neurological Neurological: Present alert, oriented X3 and other (NIHSS 0 including normal finger-nose and heel to mendoza. Romberg is intact however she has significant instability w/ heel-toe walk) Psychiatric Psychiatric: Present normal affect Skin Skin: Present warm (WNL) and dry Course Vital Signs Vital signs: Vital Signs Temperature 97.8 F 09/08/21 03:58 Pulse Rate 84 09/08/21 03:58 Respiratory Rate 18 09/08/21 03:58 Blood Pressure 221/124 09/08/21 03:58 Pulse Oximetry (%) 96 09/08/21 03:58 Temperature 97.8 F 09/08/21 03:58 Pulse Rate 73 09/08/21 16:30 Respiratory Rate 18 09/08/21 03:58 Blood Pressure 222/101 09/08/21 16:30 Pulse Oximetry (%) 96 09/08/21 16:30 MDM MDM Narrative Medical decision making narrative: 56 yo F w/ h/o ERSD on HD TThSa, DM2, HTN, deafness s/p R cochlear implant in Jun p/w R sided THORNTON, confusion, vertigo, difficulty speaking. DDx - CVA, [employer] infection, mastoiditis, COVID, pulmonary edema Pt was signed out to me by Dr Kelley w/ plan to F/U on ENT call back. During sign out however I was concerned for the possibility of posterior circulation CVA. I assessed the pt in person and took a Hx as noted above in HPI. I noted confusion and instability w/ heel-mendoza testing but o/w intact neurologic function. The CT head was already negative, and I thus pursued CTA head/neck. This did not reveal any vascular lesions or intracranial lesions. There was also no evidence of mastoiditis, intracranial [employer] infection. There was possible COVID PNA seen at the apices of the lungs prompting me to send a COVID swab, which was ultimately negative. CXR did show pulm edema vs infiltrates. I D/w Dr Gongora w/ teleneuro. He recommended MRI for further evaluation, if negative, no further CVA W/U. Unfortunately, pts cochlear implant is apparently not MRI compatible per d/w [place]. In the meantime, her SaO2 began trending down to the 80s, prompting us to start supplemental O2 via 2L NC. I then updated Dr Gongora who r ecommended ASA, and echo for further CVA W/U. I d/w Dr Kamara who accepted the pt for T/F. The etiology of the hypoxia remains unclear if this is pulmonary edema (possible as pt later added that she had had incomplete HD d/t clotting) vs COVID (which would better explain her confusion). After accepting, Dr Kamara found that a different MRI machine might be compatible w/ pts implant and decided to T/F her. We offered to handle this for him but he declined. Lab Data Lab results reviewed: Yes I reviewed the patient's lab results. Result diagrams: 09/08/21 05:08 09/08/21 05:08 Labs: Lab Results 09/08/21 09/08/21 09/08/21 Range/Units 05:08 05:08 05:08 WBC 8.9 (4.5-11.0) K/mcL RBC 3.81 (3.59-5.38) M/mcL Hgb 13.9 (11.2-15.7) g/dL Hct 40.9 (34.1-44.9) % MCV 107.3 H (80.0-100.0) fL MCH 36.5 H (26.0-34.0) pg MCHC 34.0 (31.0-36.0) g/dL RDW 14.4 (11.5-14.5) % Plt Count 189 (140-440) K/mcL MPV 9.7 (7.4-10.4) fL Neut % (Auto) 79.9 H (38.0-78.0) % Lymph % (Auto) 13.2 L (15.5-49.0) % Rich % (Auto) 5.3 (1.0-12.0) % Eos % (Auto) 1.1 (0.0-7.0) % Baso % (Auto) 0.5 (0.0-2.0) % Lymph # (Auto) 1.17 L (1.50-4.80) K/mcL Rich # (Auto) 0.47 (0.10-0.90) K/mcL Eos # (Auto) 0.10 (0.00-0.70) K/mcL Baso # (Auto) 0.04 (0.00-0.30) K/mcL Absolute Neutrophils 7.09 (1.80-8.00) K/mcL Sodium 132 L (133-145) mmol/L Potassium 4.9 (3.3-5.1) mmol/L Chloride 94 L (96-108) mmol/L Carbon Dioxide 19 L (22-30) mmol/L Anion Gap 19.0 H (8.0-16.0) BUN 50 H (6-20) mg/dL Creatinine 8.5 H* (0.6-1.1) mg/dL GFR Calculation 5 Glucose 284 H (70-105) mg/dL Calcium 9.1 (8.6-10.4) mg/dL Total Bilirubin 0.5 (0.1-1.0) mg/dL AST 23 (<32) U/L ALT 23 (<40) U/L Alkaline Phosphatase 124 H (39-117) U/L Ammonia 38 (11-51) umol/L Total Protein 7.1 (5.9-8.4) gm/dL Albumin 4.3 (3.2-5.2) gm/dL Globulin 2.8 (2.2-3.7) gm/dL Albumin/Globulin Ratio 1.5 (1.0-2.3) Folate (4.2-19.9) ng/mL Urine Color Urine Appearance (Clear) Urine pH (5.0-9.0) Ur Specific [place] (1.000-1.035) Urine Protein (Negative) mg/dL Urine Glucose (UA) (Negative) mg/dL Urine Ketones (Negative) mg/dL Urine Occult Blood (Negative) mg/dL Urine Nitrate (Negative) Urine Bilirubin (Negative) mg/dL Urine Urobilinogen mg/dL Ur Leukocyte Esterase (Negative) /uL Urine RBC (0-3) /hpf Urine WBC (0-4) /hpf Ur Squamous Epith Cells (0-4) /hpf Urine Bacteria (0) /hpf Ur Culture Indicated? Ethyl Alcohol (<0.010) gm/dL 09/08/21 09/08/21 09/08/21 Range/Units 05:36 07:02 07:02 WBC (4.5-11.0) K/mcL RBC (3.59-5.38) M/mcL Hgb (11.2-15.7) g/dL Hct (34.1-44.9) % MCV (80.0-100.0) fL MCH (26.0-34.0) pg MCHC (31.0-36.0) g/dL RDW (11.5-14.5) % Plt Count (140-440) K/mcL MPV (7.4-10.4) fL Neut % (Auto) (38.0-78.0) % Lymph % (Auto) (15.5-49.0) % Rich % (Auto) (1.0-12.0) % Eos % (Auto) (0.0-7.0) % Baso % (Auto) (0.0-2.0) % Lymph # (Auto) (1.50-4.80) K/mcL Rich # (Auto) (0.10-0.90) K/mcL Eos # (Auto) (0.00-0.70) K/mcL Baso # (Auto) (0.00-0.30) K/mcL Absolute Neutrophils (1.80-8.00) K/mcL Sodium (133-145) mmol/L Potassium (3.3-5.1) mmol/L Chloride (96-108) mmol/L Carbon Dioxide (22-30) mmol/L Anion Gap (8.0-16.0) BUN (6-20) mg/dL Creatinine (0.6-1.1) mg/dL GFR Calculation Glucose (70-105) mg/dL Calcium (8.6-10.4) mg/dL Total Bilirubin (0.1-1.0) mg/dL AST (<32) U/L ALT (<40) U/L Alkaline Phosphatase (39-117) U/L Ammonia (11-51) umol/L Total Protein (5.9-8.4) gm/dL Albumin (3.2-5.2) gm/dL Globulin (2.2-3.7) gm/dL Albumin/Globulin Ratio (1.0-2.3) Folate > 20.0 H (4.2-19.9) ng/mL Urine Color Yellow Urine Appearance Clear (Clear) Urine pH 8.0 (5.0-9.0) Ur Specific [place] 1.008 (1.000-1.035) Urine Protein 100 A (Negative) mg/dL Urine Glucose (UA) >=500 A (Negative) mg/dL Urine Ketones Negative (Negative) mg/dL Urine Occult Blood 0.03 (Negative) mg/dL Urine Nitrate Negative (Negative) Urine Bilirubin Negative (Negative) mg/dL Urine Urobilinogen Negative mg/dL Ur Leukocyte Esterase Negative (Negative) /uL Urine RBC 1 (0-3) /hpf Urine WBC 1 (0-4) /hpf Ur Squamous Epith Cells 1 (0-4) /hpf Urine Bacteria None (0) /hpf Ur Culture Indicated? No Ethyl Alcohol < 0.010 (<0.010) gm/dL ED POC Tests ED POC Tests: MONA - Influenza A Negative MONA - Influenza B Negative MONA - SARS Antigen Negative CC TIME Critical Care Time Attestation: Approximately 35 minutes of critical care time was used in order to assess and manage the high probability of imminent or life threatening deterioration to the [employer] which required my highest level of preparedness and interventions with frequent patient assessments. This time is excluding time spent on separately billable procedures. Discharge Plan Patient/Caregiver Discharge Instructions Pt seen by HANDBAG STITCHER/PA only: No Clinical Impression: Dizzinesses, Acute confusion, Pulmonary edema, Hypoxia Chronic kidney failure Qualifiers: Chronic kidney disease stage: stage 5 Qualified Code(s): N18.5 - Chronic kidney disease, stage 5 Patient Disposition: Still a Patient Condition: Fair Follow up with: Not On Staff,Physician [Primary Care Provider] - Prescriptions: No Action olopatadine 0.1 % drops 1 drp OPHTHALMIC BID 0RF Rx Instructions: 1 gtt in each affected eye (0.1% solution) 2 times a day clopidogrel 75 mg tablet 75 mg PO QDAY 0RF Rx Instructions: 75 mg orally (75 mg tablet) once a day (in the morning) albuterol sulfate [Proventil HFA] 90 mcg/actuation HFA aerosol inhaler 2 puff INHALATION Q6H PRN (Reason: shortness of breath or wheezing) Qty: 6.7 2RF ergocalciferol (vitamin D2) 1,250 mcg (50,000 unit) capsule 1,250 mcg PO QMONTH 0RF furosemide 40 mg tablet 80 mg PO BID Qty: 120 11RF Rx Instructions: New correct dose sevelamer carbonate 800 mg tablet 2,400 mg PO TID Qty: 300 11RF Rx Instructions: must administer with a meal/food. Dose adjustment based on monthly labs at HD unit rosuvastatin [Crestor] 20 mg tablet 10 mg PO HS Qty: 30 11RF aspirin 81 mg tablet,chewable 81 mg PO QDAY Qty: 30 11RF Nephro-Ofelia Rx 1-60-300 mg-mg-mcg tablet 1 tab PO QDAY Qty: 30 11RF cyanocobalamin (vitamin B-12) 1,000 mcg tablet 1,000 mcg PO QDAY Qty: 30 11RF polyethylene glycol 3350 [Miralax] 17 gram/dose powder 17 g PO BID PRN (Reason: constipation) Qty: 510 3RF Rx Instructions: 1 scoop (17 gm) in 4 oz water up to 4 times a day as needed to relieve const ipation. Ultra Rigby-3 500-1,000 mg capsule 1 cap PO BID Qty: 60 2RF isosorbide dinitrate 10 mg tablet See Rx Instructions PO TID Qty: 90 11RF Rx Instructions: 10 mg orally three times daily and skip evening dose on MWF after dialysis losartan 50 mg tablet See Rx Instructions PO BID Qty: 60 11RF Rx Instructions: The correct dose of Losartan is 50 mg orally BID and skip dose MWF evening after dialysis calcium acetate(phosphat bind) 667 mg capsule 1,334 mg PO .TID c c Qty: 180 11RF glipizide 5 mg tablet 5 mg PO BID Qty: 60 11RF Rx Instructions: New dose and formulation ondansetron 4 mg tablet,disintegrating 4 mg PO BID PRN (Reason: nausea and vomiting) Qty: 30 0RF Rx Instructions: Use as needed for nausea cetirizine 10 mg tablet 10 mg PO QDAY Qty: 30 11RF (DME) blood pressure monitor kit See Dose Instructions .ROUTE .MEDSUPPLY Qty: 1 0RF Dose Instruction: As directed Rx Instructions: As directed to monitor blood pressures at home. valacyclovir 500 mg tablet 500 mg PO DAILY 0RF insulin lispro [Humalog U-100 Insulin] 100 unit/mL Solution See Rx Instructions .ROUTE .COMPLEX Qty: 3 0RF Rx Instructions: Check bg before each meal and at bedtime.Give 1 unit if bg>150; 2 units if bg> 200; give 3 units if bg>250; give 4 units if bg>300; give 5 units if bg>350; give 6 units if bg>400, call PCP or go to the ER immediately. Maximal 20 units/. If pt needs>20 units/day, call PCP. meclizine 12.5 mg tablet 12.5 mg PO BID PRN (Reason: dizziness) Qty: 5 0RF Bath Nasal 0.65 % aerosol,spray 2 spray intranasal Q4H PRN (Reason: nasal congestion) Qty: 15 0RF
[2021-09-08] MEDS ORDERED: ACETAMINOPHEN 500 MG TABLET PO ONE (09:35)
[2021-09-08] MEDS ORDERED: ONDANSETRON 4 MG ODT TABLET SL ONE ×2 (09:35→15:36)
--- NOTE | 2021-09-08 10:51 | Cat Scan Report ---
History: Right-sided headache, vertigo, stroke symptoms with difficulty speaking TECHNIQUE: Following injection of intravenous nonionic contrast, arterial phase images were acquired from the aortic arch to the top of the head. Sagittal and coronal reformats were created of the head and neck along with curved linear reformatted images of the neck. Radiation exposure was limited using dose reduction technology. FINDINGS: NECK: Patient has a random distribution of groundglass alveolar infiltrates in both lungs. The greatest involvement is in the right upper lobe. The pulmonary arteries to both upper lobes are normal. The aortic arch is normal in caliber and there few small eccentric plaques along the wall. There is no dissection. A small amount of plaque distortion of the left subclavian artery which is not causing stenosis. The right subclavian artery is normal. The vertebral arteries are normal in caliber and symmetric. Both common carotid arteries are normal. There is a small amount of plaque in both carotid bifurcations. This is causing a 25% stenosis at the origin of the right internal carotid and a 40% stenosis at the origin of the right external carotid. There is less than 25% stenosis at the origin left internal carotid. Beyond their origins both internal carotids are normal. Head: The intracranial portions of both vertebral arteries are normal and symmetric. The basilar artery and posterior fossa circulation are normal. The petrous and cavernous portions of both internal carotids are normal. There is minimal plaque formation in the cavernous portions of both internal carotids. This is not causing stenosis. The supraclinoid portions of the internal carotids are normal. The anterior and middle cerebral arteries as well as the posterior cerebral arteries are normal caliber and symmetric. There is no thrombosis or stenosis. No aneurysm or vascular malformation are present. There is no enhancing lesion. IMPRESSION: Mild atherosclerotic disease in the carotid bifurcations causing nonhemodynamically significant stenoses. Normal intracranial circulation Bilateral pulmonary infiltrates, right worse than left. This is probably due to pneumonia. The pattern is suggestive of Covid. Dr. Carolina was called with the results Interpreted and Authenticated by: Adolfo Yee 09/08/21
--- NOTE | 2021-09-08 11:25 | XRay Report ---
HISTORY: Chest pain, dizziness FINDINGS: The heart is mildly enlarged but magnified by portable technique. There are moderate generalized alveolar opacities throughout both lungs. Lung lines are normal. There is no lobar consolidation. No pleural effusion is present. No adenopathy is detected. Comparison with the prior exam from 06/30/21 shows the heart is larger and the alveolar opacities are new. IMPRESSION: Mild cardiomegaly Bilateral alveolar opacities which could be pulmonary edema, widespread pneumonia or a noninfectious inflammatory process Interpreted and Authenticated by: Adolfo Yee 09/08/21
--- NOTE | 2021-09-08 15:22 | Internal Med History&Physical ---
HPI History of Present Illness Patient information: Note initiated : 09/08/21 at 3:19 pm Service Date, if different from initiated Date: [] Patient: Iris Dixon a 56 y/o F admitted on for dizziness. Chief Complaint: [] History of present illness: Zack is a 56 year old female with a history of hypertension, hyperlipidemia, type 2 diabetes mellitus, end-stage renal disease on hemodialysis, deafness status post right side cochlear implant in June 2021 who presented to the emergency department with a right-sided headache, seeing flashes of light, vertigo, difficulty speaking and difficulty with concentration. The patient was evaluated for possible stroke with a noncontrast CT head which was interpreted as normal, CTA head and neck which did not show any hemodynamically significant stenosis. The patient's cochlear implant is not MRI compatible therefore an MRI brain is not feasible. Telestroke neurology was consulted by the ED provider, the recommendation was to admit the patient for further stroke work-up. In the ED, the patient had an EKG which showed normal sinus rhythm and prolonged QTc of 514. Routine lab work showed normal hemoglobin, macrocytosis, anion gap metabolic acidosis, elevated creatinine in keeping with ESRD. The CTA neck lung goode showed bilateral infiltrates versus pulmonary edema, suspicious for possible COVID-pneumonia. A [place] rapid antigen test was done for SARS-CoV-2 and influenza a and B and all were interpreted as negative. [place] PCR was ordered and pending. Hospital medicine was consulted for admission. The patient says that she is due for hemodialysis today. Her main complaint is flashes of light, right-sided headache and nausea. The patient's blood pressure was markedly elevated, greater than 200 mm systolic in the ED. We discussed the plan of care with the patient, all questions answered to the best of my ability. Review of systems Constitutional: no fever, fatigue, or weight loss Eyes: Positive for flashes of light and vertigo Cardiovascular: no chest pain, no palpitations Respiratory: Positive for shortness of breath, no cough or dyspnea Gastrointestinal: Positive for nausea, no abdominal pain, vomiting, or diarrhea Genitourinary: no dysuria or difficulty voiding Musculoskeletal: no arthralgia or myalgia Integumentary: no skin lesion or wound Neurological: no focal weakness or numbness Psychiatric: no anxiety or depression Physical exam Head: Atraumatic, normal inspection. Eyes: normal appearance, no scleral icterus. Neck: full ROM Respiratory: Nasal cannula oxygen 2 L/min, does not appear to be in respiratory distress. Cardiovascular: normal rate and rhythm, S1, S2. GI/Abdominal: soft, nontender, no guarding. Extremities: Left upper extremity fistula for hemodialysis, full range of motion, nontender. Neurological: CN II-XII intact, intact motor, intact sensation. Psychiatric: normal mood. Skin: warm, normal color PFSH PFSH All Active Problems (Updated 09/08/21 @ 16:10 by Michael Carolina MD) Pulmonary edema (Acute) Hypoxia (Acute) History of nephrectomy (Chronic) Left flank pain (Acute) Diabetes (Chronic) Low blood sugar (Chronic) Edema (Chronic) DM type 2 (diabetes mellitus, type 2) (Chronic) Anemia (Chronic) Herpes (Chronic) Hypertensive disorder (Chronic) Deafness in right ear (Chronic) Vitamin D deficiency (Chronic) Burn of abdomen (Chronic) Vitamin B12 deficiency (Chronic) Magnesium deficiency (Chronic) Hyperlipidemia (Chronic) Allergy to animals (Chronic) Proteinuria (Chronic) Astigmatism (Chronic) Myopia (Chronic) Presbyopia (Chronic) Nonexudative age-related macular degeneration (Chronic) URI (upper respiratory infection) (Chronic) Visual disturbance (Chronic) Acute UTI (Chronic) Microscopic hematuria (Chronic) Acute respiratory disease (Chronic) Dysuria (Chronic) Solitary kidney, acquired (Chronic) CKD (chronic kidney disease) stage 3, GFR 30-59 ml/min (Acute) Proteinuria due to type 2 diabetes mellitus (Chronic) Chronic Kidney Disease (Chronic) Solitary left kidney (Chronic) Anemia (Acute) Nephrotic range proteinuria (Chronic) Chronic kidney disease, stage III (moderate) (Chronic) YAZ positive (Acute) ESR raised (Acute) Secondary hyperparathyroidism of renal origin (Acute) ESRD on hemodialysis (Acute) HTN (hypertension), benign (Acute) COVID-19 (Acute) Anemia in ESRD (end-stage renal disease) (Acute) Sudden hearing loss (Acute) Tinnitus (Acute) Hypertensive urgency (Acute) Accelerated hypertension (Acute) Pulmonary edema (Acute) Acute dyspnea (Acute) Constipation due to slow transit (Acute) Light-headed feeling (Acute) Dizziness (Acute) Nausea (Acute) End-stage renal disease (ESRD) (Acute) Anemia (Acute) Sinusitis (Acute) Congestion of nasal sinus (Acute) Vertigo (Acute) Dizzinesses (Acute) Acute confusion (Acute) Chronic kidney failure (Acute) Medical History (Updated 09/08/21 @ 16:10 by Michael Carolina MD) Acute respiratory disease Acute UTI Allergy to animals YAZ positive Anemia Astigmatism Burn of abdomen Lower RT abdomen Chronic kidney disease, stage III (moderate) Deafness in right ear Diabetes DM type 2 (diabetes mellitus, type 2) Dysuria Edema ESR raised Herpes History of gestational diabetes Hyperlipidemia Hypertensive disorder Left flank pain Low blood sugar Magnesium deficiency Microscopic hematuria Myopia Nonexudative age-related macular degeneration Presbyopia Proteinuria SLE (systemic lupus erythematosus) Solitary kidney, acquired URI (upper respiratory infection) Visual disturbance Vitamin B12 deficiency Vitamin D deficiency Surgical History History of section History of nephrectomy 1997 right Family History Family/Other Diabetes mellitus, type II Aunt Brother Diabetes mellitus, type II Sister Diabetes mellitus, type II Father Hypoglycemia Family/Other Diabetes mellitus, type II Uncle Social History alcohol intake frequency: does not drink substance use type: does not use MEDS/ALLERGIES Home Medications and Allergies Home Medications Medication Instructions Recorded Confirmed Type blood pressure monitor #1 each 11/01/15 09/08/21 Rx clopidogrel 75 mg tablet 75 mg PO QAM 12/13/19 09/08/21 History olopatadine 0.1 % eye drops 1 drp OPHTHALMIC BID 12/13/19 09/08/21 History albuterol sulfate 90 mcg/actuation 2 puff INHALATION Q6H PRN #6.7 g 01/18/20 09/08/21 Rx aerosol inhaler (Proventil HFA) valacyclovir 500 mg tablet 500 mg PO QPM 03/28/20 09/08/21 History furosemide 40 mg tablet 80 mg PO BID #120 tab 10/01/20 09/08/21 Rx sevelamer carbonate 800 mg tablet 2,400 mg PO TID #300 tab 12/09/20 09/08/21 Rx rosuvastatin 20 mg tablet (Crestor) 10 mg PO HS #30 tab 12/10/20 09/08/21 Rx omega 1-dry-ghm-fish oil 500 mg 1 cap PO BID #60 tab 06/06/21 09/08/21 Rx (200mg-300mg)-1,000 mg capsule (Ultra [place]-3) isosorbide dinitrate 10 mg tablet See Rx Instructions PO TID #90 tab 06/24/21 09/08/21 Rx losartan 50 mg tablet See Rx Instructions PO BID #60 tab 06/24/21 09/08/21 Rx calcium acetate(phosphat bind) 667 1,334 mg PO .TID c c #180 cap 07/01/21 09/08/21 Rx mg capsule B-complex with vitamin C 1 tab PO QAM 09/08/21 09/08/21 History aspirin 81 mg chewable tablet 81 mg PO QPM 09/08/21 09/08/21 History carvedilol 25 mg tablet 25 mg PO PRN PRN 09/08/21 09/08/21 History cyanocobalamin (vitamin B-12) 1,000 mcg PO QAM 09/08/21 09/08/21 History 1,000 mcg tablet glipizide 5 mg tablet 5 mg PO BID 09/08/21 09/08/21 History Allergies Allergy/AdvReac Type Severity Reaction Status Date / Time sulfamethoxazole AdvReac Intermediate "It shuts Verified 09/08/21 20:29 [From ] down my kidneys". trimethoprim [From ] AdvReac Intermediate "It shuts Verified 09/08/21 20:29 down my kidneys". codeine AdvReac Mild Itching Verified 09/08/21 20:28 EXAM Constitutional Vitals: Temp Pulse Resp BP Pulse Ox 97.8 F 79 18 220/101 96 09/08/21 03:58 09/08/21 15:00 09/08/21 03:58 09/08/21 15:00 09/08/21 15:00 DATA Data Completed and Pending Labs: Labs from last 24 hours 09/08/21 09/08/21 09/08/21 07:02 07:02 05:36 WBC RBC Hgb Hct MCV MCH MCHC RDW Plt Count MPV Neut % (Auto) Lymph % (Auto) [place] % (Auto) Eos % (Auto) Baso % (Auto) Lymph # (Auto) [place] # (Auto) Eos # (Auto) Baso # (Auto) Absolute Neutrophils Sodium Potassium Chloride Carbon Dioxide Anion Gap BUN Creatinine GFR Calculation Glucose Calcium Total Bilirubin AST ALT Alkaline Phosphatase Ammonia Total Protein Albumin Globulin Albumin/Globulin Ratio Folate > 20.0 H Urine Color Yellow Urine Appearance Clear Urine pH 8.0 Ur Specific [place] 1.008 Urine Protein 100 A Urine Glucose (UA) >=500 A Urine Ketones Negative Urine Occult Blood 0.03 Urine Nitrate Negative Urine Bilirubin Negative Urine Urobilinogen Negative Ur Leukocyte Esterase Negative Urine RBC 1 Urine WBC 1 Ur Squamous Epith Cells 1 Urine Bacteria None Ur Culture Indicated? No Ethyl Alcohol < 0.010 09/08/21 09/08/21 09/08/21 05:08 05:08 05:08 WBC 8.9 RBC 3.81 Hgb 13.9 Hct 40.9 MCV 107.3 H MCH 36.5 H MCHC 34.0 RDW 14.4 Plt Count 189 MPV 9.7 Neut % (Auto) 79.9 H Lymph % (Auto) 13.2 L [place] % (Auto) 5.3 Eos % (Auto) 1.1 Baso % (Auto) 0.5 Lymph # (Auto) 1.17 L [place] # (Auto) 0.47 Eos # (Auto) 0.10 Baso # (Auto) 0.04 Absolute Neutrophils 7.09 Sodium 132 L Potassium 4.9 Chloride 94 L Carbon Dioxide 19 L Anion Gap 19.0 H BUN 50 H Creatinine 8.5 H* GFR Calculation 5 Glucose 284 H Calcium 9.1 Total Bilirubin 0.5 AST 23 ALT 23 Alkaline Phosphatase 124 H Ammonia 38 Total Protein 7.1 Albumin 4.3 Globulin 2.8 Albumin/Globulin Ratio 1.5 Folate Urine Color Urine Appearance Urine pH Ur Specific [place] Urine Protein Urine Glucose (UA) Urine Ketones Urine Occult Blood Urine Nitrate Urine Bilirubin Urine Urobilinogen Ur Leukocyte Esterase Urine RBC Urine WBC Ur Squamous Epith Cells Urine Bacteria Ur Culture Indicated? Ethyl Alcohol A/P Narrative A/P Narrative: Assessment: 56 year old female with a history of hypertension, hyperlipidemia, type 2 diabetes mellitus, end-stage renal disease on hemodialysis, deafness status post right side cochlear implant in June 2021 who presented to the emergency department with a right-sided headache, seeing flashes of light, vertigo, difficulty speaking and difficulty with concentration. The patient had a stroke work-up with noncontrast CT head, CTA head and neck which was fairly unremarkable. The patient is unable to get an MRI brain due to her cochlear implant. The CTA neck scan picked up portions of the upper lung goode showing bilateral infiltrates of uncertain etiology, possibly consistent with COVID- pneumonia. Patient has not had hemodialysis today, it is possible that the lung findings represent pulmonary edema. The patient did have a new oxygen requirement in the ED of 2 L/min however she is required oxygen supplementation in the past. Both the hypoxia and bilateral pulmonary findings could be related to volume overload occurring in the setting of ESRD. The ED provider called the patient's ENT to ask if the patient's cochlear implant could be contributing to the patient's symptoms however was not able to get a hold of the provider. #Right-sided headache, vision changes, and vertigo #Concern for a possible acute posterior circulation ischemic stroke #Hypoxia requiring 2 L/min #Bilateral upper lobe lung infiltrates of uncertain etiology #ESRD on hemodialysis #Anion gap metabolic acidosis #Prolonged QTc #Type 2 diabetes mellitus #Macrocytosis #Deafness status post non-MRI compatible postcochlear implant June 2021 #Obesity Plan -Admit to PCU for hypoxia and close monitoring for possible acute stroke. -Oxygen supplementation, wean as able. -[place] PCR and respiratory panel 1 and 2. -Check ESR and CRP. -Unable to obtain MRI as the cochlear implant is reportedly not compatible. -Transthoracic echocardiogram and cafeteria monitor for stroke work-up. -Check lipid panel and hemoglobin A1c. -Check vitamin B12 level for macrocytosis. -Check magnesium level for prolonged QTc. -Permissive blood pressure, labetalol IV and hydralazine IV as needed for systolic blood pressure greater than 220 or diastolic blood pressure greater than 110. -Correction Humalog SSI-medium. -Lasix 80 mg IV once. -Nephrology consulted for hemodialysis. -Avoid QT prolonging medications. -Home medication reconciliation, resume important meds. -Renal consistent carbohydrate diet. -PT and OT consult. -If the patient's symptoms do not improve then discussed possible cochlear imp lant issues with the patient's ENT provider. -DVT prophylaxis: Heparin SQ. -Disposition: TBD Time Spent With Patient Time: Total time spent is greater than 50% in coordination of care (as documented) at patient's floor/unit and/or counseling patient:
--- NOTE | 2021-09-08 15:46 | Nephrology Consult Note ---
HPI Data of Consult Patient: known to practice within the last 3 years Consult date: 09/08/21 Requesting physician: Michael Carolina Primary Care Provider: Physician Not On Staff Consult Narrative Chief complaint: Dizziness Reason for consult: End stage renal disease on hemodialysis History of present illness: Iris Dixon is a 56-year-old female with end stage renal disease on hemodialysis, hypertension, diabetes mellitus type 2, deafness status post right side cochlear implant in June 2021 admitted on 09/08/21. She presented to ED for dizziness, right-sided headache, vertigo, difficulty speaking and con fusion. In ED, CT head and CTA head and neck did not show any hemodynamically significant stenosis. Telestroke neurology was consulted by the ED provider, the recommendation was to admit the patient for further work-up including transthoracic echocardiogram and cardiac monitoring. Her labs for significant for hyponatremia (132), metabolic acidosis (19). cc:: CC: Constitutional Constitutional: Present headache(s) and weakness EENT Nose, mouth and throat: Present dizziness and vertigo Cardiovascular Cardiovascular: Absent chest pain or palpatations Respiratory Respiratory: Absent cough or dyspnea Gastrointestinal Gastrointestinal: Absent abdominal pain or diarrhea Genitourinary Genitourinary: Absent hematuria Integumentary Integumentary: Absent rash Neurological Neurological: Present abnormal speech, dizziness, headache(s) and vertigo Psychiatric Psychiatric: Absent anxiety or panic attacks Allergic/Immunologic Allergic/Immunologic: Absent tongue swelling or uticaria PFSH PFSH All Active Problems (Updated 09/08/21 @ 16:10 by Michael Carolina MD) Pulmonary edema (Acute) Hypoxia (Acute) History of nephrectomy (Chronic) Left flank pain (Acute) Diabetes (Chronic) Low blood sugar (Chronic) Edema (Chronic) DM type 2 (diabetes mellitus, type 2) (Chronic) Anemia (Chronic) Herpes (Chronic) Hypertensive disorder (Chronic) Deafness in right ear (Chronic) Vitamin D deficiency (Chronic) Burn of abdomen (Chronic) Vitamin B12 deficiency (Chronic) Magnesium deficiency (Chronic) Hyperlipidemia (Chronic) Allergy to animals (Chronic) Proteinuria (Chronic) Astigmatism (Chronic) Myopia (Chronic) Presbyopia (Chronic) Nonexudative age-related macular degeneration (Chronic) URI (upper respiratory infection) (Chronic) Visual disturbance (Chronic) Acute UTI (Chronic) Microscopic hematuria (Chronic) Acute respiratory disease (Chronic) Dysuria (Chronic) Solitary kidney, acquired (Chronic) CKD (chronic kidney disease) stage 3, GFR 30-59 ml/min (Acute) Proteinuria due to type 2 diabetes mellitus (Chronic) Chronic Kidney Disease (Chronic) Solitary left kidney (Chronic) Anemia (Acute) Nephrotic range proteinuria (Chronic) Chronic kidney disease, stage III (moderate) (Chronic) YAZ positive (Acute) ESR raised (Acute) Secondary hyperparathyroidism of renal origin (Acute) ESRD on hemodialysis (Acute) HTN (hypertension), benign (Acute) COVID-19 (Acute) Anemia in ESRD (end-stage renal disease) (Acute) Sudden hearing loss (Acute) Tinnitus (Acute) Hypertensive urgency (Acute) Accelerated hypertension (Acute) Pulmonary edema (Acute) Acute dyspnea (Acute) Constipation due to slow transit (Acute) Light-headed feeling (Acute) Dizziness (Acute) Nausea (Acute) End-stage renal disease (ESRD) (Acute) Anemia (Acute) Sinusitis (Acute) Congestion of nasal sinus (Acute) Vertigo (Acute) Dizzinesses (Acute) Acute confusion (Acute) Chronic kidney failure (Acute) Medical History (Updated 09/08/21 @ 16:10 by Michael Carolina MD) Acute respiratory disease Acute UTI Allergy to animals YAZ positive Anemia Astigmatism Burn of abdomen Lower RT abdomen Chronic kidney disease, stage III (moderate) Deafness in right ear Diabetes DM type 2 (diabetes mellitus, type 2) Dysuria Edema ESR raised Herpes History of gestational diabetes Hyperlipidemia Hypertensive disorder Left flank pain Low blood sugar Magnesium deficiency Microscopic hematuria Myopia Nonexudative age-related macular degeneration Presbyopia Proteinuria SLE (systemic lupus erythematosus) Solitary kidney, acquired URI (upper respiratory infection) Visual disturbance Vitamin B12 deficiency Vitamin D deficiency Surgical History History of section History of nephrectomy 1996 right Family History Family/Other Diabetes mellitus, type II Aunt Brother Diabetes mellitus, type II Sister Diabetes mellitus, type II Father Hypoglycemia Family/Other Diabetes mellitus, type II Uncle Social History alcohol intake frequency: does not drink substance use type: does not use MEDS/ALLERGIES Home Medications and Allergies Home Medications Medication Instructions Recorded Confirmed Type blood pressure monitor #1 each 11/01/15 09/08/21 Rx clopidogrel 75 mg tablet 75 mg PO QAM 12/13/19 09/08/21 History olopatadine 0.1 % eye drops 1 drp OPHTHALMIC BID 12/13/19 09/08/21 History albuterol sulfate 90 mcg/actuation 2 puff INHALATION Q6H PRN #6.7 g 01/18/20 09/08/21 Rx aerosol inhaler (Proventil HFA) valacyclovir 500 mg tablet 500 mg PO QPM 03/28/20 09/08/21 History furosemide 40 mg tablet 80 mg PO BID #120 tab 10/01/20 09/08/21 Rx sevelamer carbonate 800 mg tablet 2,400 mg PO TID #300 tab 12/09/20 09/08/21 Rx rosuvastatin 20 mg tablet (Crestor) 10 mg PO HS #30 tab 12/10/20 09/08/21 Rx omega 1-cwf-pjm-fish oil 500 mg 1 cap PO BID #60 tab 06/06/21 09/08/21 Rx (200mg-300mg)-1,000 mg capsule (Ultra [place]-3) isosorbide dinitrate 10 mg tablet See Rx Instructions PO TID #90 tab 06/24/21 09/08/21 Rx losartan 50 mg tablet See Rx Instructions PO BID #60 tab 06/24/21 09/08/21 Rx calcium acetate(phosphat bind) 667 1,334 mg PO .TID c c #180 cap 07/01/21 09/08/21 Rx mg capsule B-complex with vitamin C 1 tab PO QAM 09/08/21 09/08/21 History aspirin 81 mg chewable tablet 81 mg PO QPM 09/08/21 09/08/21 History carvedilol 25 mg tablet 25 mg PO PRN PRN 09/08/21 09/08/21 History cyanocobalamin (vitamin B-12) 1,000 mcg PO QAM 09/08/21 09/08/21 History 1,000 mcg tablet glipizide 5 mg tablet 5 mg PO BID 09/08/21 09/08/21 History Allergies Allergy/AdvReac Type Severity Reaction Status Date / Time codeine Allergy Severe Itching Verified 07/04/21 21:54 sulfamethoxazole Allergy Severe Unknown Verified 07/04/21 21:54 [From ] trimethoprim [From ] Allergy Severe Unknown Verified 07/04/21 21:54 Physical Examination Vital Signs Vital signs: Temp Pulse Resp BP Pulse Ox 97.8 F 78 18 220/101 98 09/08/21 03:58 09/08/21 15:17 09/08/21 03:58 09/08/21 15:17 09/08/21 15:17 General Appearance General appearance: chronically ill EENT EENT: mucous membranes moist Respiratory Respiratory: course breath sounds Cardiovascular Cardiology: edema Gastrointestinal Gastrointestinal: no tenderness Integumentary Integumentary: no rash Neurologic Neurologic: alert and oriented x3 Psychiatric Psychiatric: mood/affect appropriate and cooperative Results Lab Results Result Diagrams: 09/08/21 05:08 09/08/21 05:08 Lab results: Most recent lab results Calcium 9.1 mg/dL (8.6-10.4) 09/08/21 05:08 A/P Assessment and plan (1) ESRD on hemodialysis: Assessment and plan: Iris Dixon is a 56-year-old female with end stage renal disease on hemodialysis, hypertension, diabetes mellitus type 2, deafness status post right side cochlear implant in June 2021 admitted on 09/08/21. She presented to ED for dizziness, right-sided headache, vertigo, difficulty speaking and co nfusion. In ED, CT head and CTA head and neck did not show any hemodynamically significant stenosis. Telestroke neurology was consulted by the ED provider, the recommendation was to admit the patient for further work-up including transthoracic echocardiogram and cardiac monitoring. Her labs for significant for hyponatremia (132), metabolic acidosis (19). CXR reported Mild cardiomegal y.Bilateral alveolar opacities which could be pulmonary edema, widespreadpneumonia or a noninfectious inflammatory process.Nephrology consultation was requested for end stage renal disease. End stage renal disease on hemodialysis on Wednesday, Wednesday, Wednesday. Fluid overload with pulmonary edema. Recommendations/Plan: Hemodialysis tomorrow. Status: Acute Time Spent With Patient Time: Total time spent is greater than 50% in coordination of care (as documented) at patient's floor/unit and/or counseling patient:
[2021-09-08] MEDS ORDERED: HYDROcodone/APAP 5/325MG TABLET PO PRN (17:39)
[2021-09-08] MEDS ORDERED: LACTULOSE 20 GM/30 ML ORAL.SOL PO PRN (17:39)
[2021-09-08] MEDS ORDERED: FUROSEMIDE 100 MG/10 ML VIAL IV ONE (17:39)
[2021-09-08] MEDS ORDERED: HYDROmorphone 0.5 MG/0.5 ML SYRINGE IV PRN (17:39)
[2021-09-08] MEDS ORDERED: DEXTROSE 50% 50 ML VIAL IV PRN (17:39)
[2021-09-08] MEDS ORDERED: hydrALAZINE 20 MG/ML VIAL IV PRN (17:39)
[2021-09-08] MEDS ORDERED: BUTALB/ACETAMINOPHEN/CAFFEINE 1 TABLET PO PRN (17:39)
[2021-09-08] MEDS ORDERED: LABETALOL 5 MG/ML ML IV PRN (17:39)
[2021-09-08] MEDS ORDERED: DEXTROSE 31 GM ORAL.SUSP PO PRN (17:39)
[2021-09-08] MEDS ORDERED: SENNOSIDES 1 TABLET PO PRN (17:39)
[2021-09-08] MEDS: INSULIN LISPRO 1 UNIT/0.01 ML UNIT SQ SCH (19:23)
[2021-09-08] MEDS: ACETAMINOPHEN 325 MG TABLET PO PRN (19:40)
[2021-09-08] MEDS ORDERED: ALBUTEROL SULFATE 200 PUFF INHALER INH PRN (20:00)
[2021-09-08] MEDS ORDERED: DEXAMETHASONE 10 MG/ML VIAL IV ONE (20:02)
[2021-09-08] MEDS ORDERED: SEVELAMER 800 MG TABLET PO SCH (21:00)
[2021-09-08] MEDS: HEPARIN 5,000 UNIT/ML VIAL SQ SCH (21:00)
[2021-09-08] MEDS: 0.9 % SODIUM CHLORIDE 10 ML SYRINGE IV SCH (21:00)
[2021-09-09] MEDS: DOCUSATE SODIUM 100 MG CAPSULE PO SCH ×3 (00:42→20:38)
[2021-09-09] MEDS: INSULIN LISPRO 1 UNIT/0.01 ML UNIT SQ SCH ×5 (00:43→20:38)
[2021-09-09] MEDS: FUROSEMIDE 40 MG TABLET PO SCH ×3 (00:44→20:37)
[2021-09-09] MEDS: Olopatadine 0.1 % drops OU SCH ×3 (00:45→20:39)
[2021-09-09] MEDS: valACYclovir 500 MG TABLET PO SCH ×2 (00:46→20:37)
[2021-09-09] MEDS: ASPIRIN 81 MG TAB.CHEW PO SCH ×2 (00:47→20:37)
[2021-09-09] MEDS: ATORVASTATIN 20 MG TABLET PO SCH ×2 (00:47→20:37)
[2021-09-09] MEDS: ISOSORBIDE DINITRATE 10 MG TABLET PO SCH ×4 (00:47→20:38)
[2021-09-09] MEDS: 0.9 % SODIUM CHLORIDE 10 ML SYRINGE IV SCH ×3 (05:56→20:40)
[2021-09-09 06:12] LABS: Basophils # (Auto) 0.04 K/mcL (0.00-0.30); Basophils % (Auto) 0.5 % (0.0-2.0); Eosinophils # (Auto) 0.13 K/mcL (0.00-0.70); Eosinophils % (Auto) 1.6 % (0.0-7.0); Hematocrit 39.9 % (34.1-44.9); Hemoglobin 12.9 g/dL (11.2-15.7); Lymphocytes # (Auto) 1.75 K/mcL (1.50-4.80); Mean Cell Volume 109.6 fL (80.0-100.0); Mean Corpuscular HGB Conc 32.3 g/dL (31.0-36.0); Mean Platelet Volume 9.8 fL (7.4-10.4); Monocytes # (Auto) 0.65 K/mcL (0.10-0.90); Monocytes % (Auto) 7.8 % (1.0-12.0); Neutrophils % (Auto) 69.1 % (38.0-78.0); Platelet Count 186 K/mcL (140-440); RBC 3.64 M/mcL (3.59-5.38); Red Cell Distribution Width 14.5 % (11.5-14.5); WBC 8.4 K/mcL (4.5-11.0)
[2021-09-09 06:21] LABS: Estimated Average Glucose(eAG) 166 mg/dL; Hemoglobin A1C 7.4 % Hgb (4.0-6.0)
[2021-09-09] MEDS: ACETAMINOPHEN 325 MG TABLET PO PRN (06:37)
[2021-09-09 06:41] LABS: HDL Cholesterol 29 mg/dL (>40); LDL Cholesterol,Calculated 15 mg/dL (<100); Non-HDL Cholesterol 61 mg/dL (<130); Triglycerides 234 mg/dL (<150)
[2021-09-09 06:50] LABS: Albumin 3.9 gm/dL (3.2-5.2); Blood Urea Nitrogen 60 mg/dL (6-20); Calcium 8.7 mg/dL (8.6-10.4); Carbon Dioxide 16 mmol/L (22-30); Chloride 98 mmol/L (96-108); Glomerular Filtration Rate 4; Glucose 86 mg/dL (70-105); Phosphorous 8.1 mg/dL (2.5-4.5)
--- NOTE | 2021-09-09 07:33 | Nephrology Progress Note ---
SUBJECTIVE Subjective Patient information: Note initiated : 09/09/21 at 7:32 am Service Date, if different from initiated Date: [] Patient: Iris Dixon 56 y/o F admitted on 09/08/21 for dizziness. Chief Complaint: [] Constitutional Vitals: Vital Signs Temp Pulse Resp BP Pulse Ox 97.8 F 75 20 193/86 99 09/08/21 03:58 09/08/21 18:01 09/08/21 18:01 09/09/21 05:16 09/08/21 18:01 Period Temp Pulse Resp BP Sys/Bronson Pulse Ox Last 24 Hr 72-84 18-20 162-268/75-123 81-99 Intake and Output 09/08/21 09/09/21 09/09/21 21:59 05:59 13:59 Intake Total 320 Balance 320 Weight 178 lb 14.4 oz Intake & Output: Intake & Output 09/08/21 09/09/21 09/09/21 21:59 05:59 13:59 Intake Total 320 Balance 320 Weight 178 lb 14.4 oz Intake: Oral 320 Other: Stool Size Moderate Moderate Stool Color Brown Yellow Green Stool Consistency Liquid Liquid # Bowel Movements 1 # of times incontinent of 1 Bowels A/P Assessment and plan (1) ESRD on hemodialysis: Assessment and plan: Iris Dixon is a 56-year-old female with end stage renal disease on hemo dialysis, hypertension, diabetes mellitus type 2, deafness status post right side cochlear implant in June 2021 admitted on 09/08/21. She presented to ED for dizziness, right-sided headache, vertigo, difficulty speaking and confusion. In ED, CT head and CTA head and neck did not show any hemodynamically significant stenosis. Telestroke neurology was consulted by the ED provider, the recommendation was to admit the patient for further work-up including transthoracic echocardiogram and cardiac monitoring. Her labs for significant for hyponatremia (132), metabolic acidosis (19). CXR reported Mild cardiomegaly.Bilateral alveolar opacities which could be pulmonary edema, widespreadpneumonia or a noninfectious inflammatory process.Nephrology consultation was requested for end stage renal disease. End stage renal disease on hemodialysis on Wednesday, Wednesday, Wednesday. Fluid overload with pulmonary edema. Hyperkalemia. Metabolic acidosis. Recommendations/Plan: Hemodialysis today. The patient seen and evaluated during hemodialysis at 08:25. Next hemodialysis tomorrow. Status: Acute Time Spent With Patient Time: Total time spent is greater than 50% in coordination of care (as documented) at patient's floor/unit and/or counseling patient:
--- NOTE | 2021-09-09 07:58 | EKG ---
[facility] Test Date: 2021-09-08 Pat Name: Iris Dixon Department: ICU Room: 120A Gender: Female [place]: : 1965 Requested By: Willie Kamara Order Number: [id number] Reading MD: Thor Jacob Measurements Intervals [place] Rate: 74 P: 9 DC: 182 QRS: -5 QRSD: 87 T: 73 QT: 452 QTc: 502 Interpretive Statements Sinus rhythm Electronically Signed On 09-09-2021 7:58:10 PDT by Thor Jacob /[facility] [place]/[email or web address]/[id number]
[2021-09-09] MEDS ORDERED: CARVEDILOL 12.5 MG TABLET PO SCH (09:00)
--- NOTE | 2021-09-09 10:30 | Internal Med Progress Note ---
SUBJECTIVE Subjective Patient information: Note initiated : 09/09/21 at 10:15 am Service Date, if different from initiated Date: [] Patient: Iris Dixon 56 y/o F admitted on 09/08/21 for dizziness. Chief Complaint: [] Interval history: Zack is a 56 year old female with a history of hypertension, hyperlipidemia, type 2 diabetes mellitus, end-stage renal disease on hemodialysis, deafness status post right side cochlear implant in June 2021 who presented to the emergency department with a right-sided headache, seeing flashes of light, vertigo, difficulty speaking and difficulty with concentration. The patient was evaluated for possible stroke with a noncontrast CT head which was interpreted as normal, CTA head and neck which did not show any hemodynamically significant stenosis. The patient's cochlear implant is not MRI compatible therefore an MRI brain is not feasible. Telestroke neurology was consulted by the ED provider, the recommendation was to admit the patient for further stroke work-up. In the ED, the patient had an EKG which showed normal sinus rhythm and prolonged QTc of 514. Routine lab work showed normal hemoglobin, macrocytosis, anion gap metabolic acidosis, elevated creatinine in keeping with ESRD. The CTA neck lung goode showed bilateral infiltrates versus pulmonary edema, suspicious for possible COVID-pneumonia. A Mary Alice rapid antigen test was done for SARS-CoV-2 and influenza a and B and all were interpreted as negative. Falkner PCR was ordered and pending. Hospital medicine was consulted for admission. The patient says that she is due for hemodialysis today. Her main complaint is fla shes of light, right-sided headache and nausea. The patient's blood pressure was markedly elevated, greater than 200 mm systolic in the ED. We discussed the plan of care with the patient, all questions answered to the best of my ability. 09/09 Patient received hemodialysis this morning. Falkner PCR and respiratory panel is negative. ESR and CRP were normal. Blood pressure markedly elevated, r eceived as needed labetalol. Continuing permissive blood pressure for concern of possible stroke. Patient has intermittent uncontrollable shaking of her upper and lower extremities. Apparently an MRI at [facility] would be possible, this was clarified with ENT. Given the uncertain diagnosis and acute changes the patient experienced I feel the patient would be better served at a higher level of care with neurology consult. Physical exam Head: Atraumatic, normal inspection. Eyes: normal appearance, no scleral icterus. Neck: full ROM Respiratory: does not appear to be in respiratory distress. Cardiovascular: normal rate and rhythm, S1, S2. GI/Abdominal: soft, nontender, no guarding. Extremities: Left upper extremity fistula for hemodialysis, full range of motion, nontender. Neurological: CN II-XII intact, intact motor, intact sensation, intermittent uncontrollable myoclonus Psychiatric: normal mood. Skin: warm, normal color Constitutional Vitals: Vital Signs Temp Pulse Resp BP Pulse Ox 96.9 F L 68 14 210/97 98 09/09/21 08:05 09/09/21 10:04 09/09/21 10:04 09/09/21 10:00 09/09/21 10:04 Period Temp Pulse Resp BP Sys/Bronson Pulse Ox Last 24 Hr 96.9 F-98.7 F 66-90 03-07 162-268/75-123 81-99 Intake and Output 09/08/21 09/09/21 09/09/21 21:59 05:59 13:59 Intake Total 320 Balance 320 Weight 81.148 kg Intake & Output: Intake & Output 09/08/21 09/09/21 09/09/21 21:59 05:59 13:59 Intake Total 320 Balance 320 Weight 81.148 kg Intake: Oral 320 Other: Stool Size Moderate Moderate Stool Color Brown Yellow Green Stool Consistency Liquid Liquid # Bowel Movements 1 # of times incontinent of 1 Bowels OBJ DATA Labs CBC & Chem 7: 09/09/21 05:10 09/09/21 05:10 Labs: Abnormal Lab Results 09/09/21 09/09/21 09/08/21 05:10 05:10 18:02 MCV 109.6 H MCH 35.4 H Neut % (Auto) Lymph % (Auto) Lymph # (Auto) Sodium Potassium 5.2 H Chloride Carbon Dioxide 16 L Anion Gap 22.0 H BUN 60 H Creatinine 10.0 H* Glucose Hemoglobin A1c 7.4 H Phosphorus 8.1 H* Magnesium 2.6 H Alkaline Phosphatase Triglycerides 234 H HDL Cholesterol 29 L Vitamin B12 1615.0 H Folate Urine Protein Urine Glucose (UA) 09/08/21 09/08/21 09/08/21 07:02 05:36 05:08 MCV MCH Neut % (Auto) Lymph % (Auto) Lymph # (Auto) Sodium 132 L Potassium Chloride 94 L Carbon Dioxide 19 L Anion Gap 19.0 H BUN 50 H Creatinine 8.5 H* Glucose 284 H Hemoglobin A1c Phosphorus Magnesium Alkaline Phosphatase 124 H Triglycerides HDL Cholesterol Vitamin B12 Folate > 20.0 H Urine Protein 100 A Urine Glucose (UA) >=500 A 09/08/21 05:08 MCV 107.3 H MCH 36.5 H Neut % (Auto) 79.9 H Lymph % (Auto) 13.2 L Lymph # (Auto) 1.17 L Sodium Potassium Chloride Carbon Dioxide Anion Gap BUN Creatinine Glucose Hemoglobin A1c Phosphorus Magnesium Alkaline Phosphatase Triglycerides HDL Cholesterol Vitamin B12 Folate Urine Protein Urine Glucose (UA) Meds: Medications Acetaminophen (Acetaminophen 325 Mg Tablet) 650 mg PO Q6HP PRN; Protocol PRN Reason: Per Pain Protocol/Fever > 101 Last Admin: 09/09/21 06:37 Dose: 650 mg Documented by: Acetaminophen/Butalbital/Caffeine (Butalb/Acetaminophen/Caffeine 1 Tablet) 1 tab PO Q4HP PRN PRN Reason: Headache Hydrocodone Bitart/Acetaminophen (Hydrocodone/Apap 5/325mg Tablet) 1 tab PO Q6HP PRN; Protocol PRN Reason: Per Pain Protocol Albuterol Sulfate (Albuterol Sulfate 200 Puff Inhaler) 2 puff INH Q6H PRN PRN Reason: shortness of breath or wheezing Aspirin (Aspirin 81 Mg Tab.Chew) 81 mg PO QPM [facility] Last Admin: 09/09/21 00:47 Dose: Not Given Documented by: Atorvastatin Calcium (Atorvastatin 20 Mg Tablet) 20 mg PO HS [facility] Last Admin: 09/09/21 00:47 Dose: Not Given Documented by: Calcium Acetate (Calcium Acetate 667 Mg Capsule) 1,334 mg PO TIDCC [facility] Clopidogrel Bisulfate (Clopidogrel 75 Mg Tablet) 75 mg PO QAM [facility] Dextrose (Dextrose 50% 50 Ml Vial) 0 ml IV UD PRN PRN Reason: Per Sliding Scale Diagnostic Test (Pha) (Accu-Chek 1 Each Strip) 1 each FS ACHS [facility] Last Admin: 09/09/21 06:38 Dose: 1 each Documented by: Docusate Sodium (Docusate Sodium 100 Mg Capsule) 100 mg PO BID [facility] Last Admin: 09/09/21 00:42 Dose: Not Given Documented by: Furosemide (Furosemide 40 Mg Tablet) 80 mg PO BID [facility] Last Admin: 09/09/21 00:44 Dose: Not Given Documented by: Glucose (Dextrose 31 Gm Oral.Susp) 15 gm PO PRN PRN PRN Reason: Hypoglycemia Heparin Sodium (Porcine) (Heparin 5,000 Unit/Ml Vial) 5,000 unit SQ Q12 [facility] Last Admin: 09/08/21 21:00 Dose: 5,000 unit Documented by: Hydralazine HCl (Hydralazine 20 Mg/Ml Vial) 10 mg IV Q4-6HP PRN PRN Reason: Hypertension Hydromorphone HCl (Hydromorphone 0.5 Mg/0.5 Ml Syringe) 0.5 mg IV Q4HP PRN; Protocol PRN Reason: Per Pain Protocol Insulin Human Lispro (Insulin Lispro 1 Unit/0.01 Ml Unit) 0 unit SQ ACHS [facility]; Protocol Last Admin: 09/09/21 06:52 Dose: Not Given Documented by: Isosorbide Dinitrate (Isosorbide Dinitrate 10 Mg Tablet) 10 mg PO TID [facility] Last Admin: 09/09/21 00:47 Dose: Not Given Documented by: Labetalol HCl (Labetalol 5 Mg/Ml Ml) 10 mg IV Q10M PRN PRN Reason: Hypertension Last Admin: 09/09/21 09:36 Dose: 10 mg Documented by: Lactulose (Lactulose 20 Gm/30 Ml Oral.Oneyda) 10 gm PO DAILYP PRN PRN Reason: Constipation Olopatadine 0.1 % (Drops) 1 dose OU BID [facility] Last Admin: 09/09/21 00:45 Dose: Not Given Documented by: Senna (Sennosides 1 Tablet) 2 tab PO HSP PRN PRN Reason: Constipation Sevelamer Carbonate (Sevelamer 800 Mg Tablet) 2,400 mg PO TIDCC [facility] Sodium Chloride (0.9 % Sodium Chloride 10 Ml Syringe) 10 ml IV Q8 [facility] Last Admin: 09/09/21 05:56 Dose: 10 ml Documented by: Valacyclovir HCl (Valacyclovir 500 Mg Tablet) 500 mg PO QPM [facility]; Protocol Last Admin: 09/09/21 00:46 Dose: Not Given Documented by: A/P Narrative A/P Narrative: Assessment: 56 year old female with a history of hypertension, hyperlipidemia, type 2 diabetes mellitus, end-stage renal disease on hemodialysis, deafness status post right side cochlear implant in June 2021 who presented to the emergency department with a right-sided headache, seeing flashes of light, vertigo, difficulty speaking and difficulty with concentration. Patient was presented to telestroke neurology in consultation. The patient had a stroke work-up with noncontrast CT head, CTA head and neck which was fairly unremarkable. The recommendation from a possible stroke perspective was to admit the patient for further work-up. Of note, the CTA neck scan picked up portions of the upper lung goode showing bilateral infiltrates of uncertain etiology however felt to be consistent with COVID-pneumonia. The patient did have a new oxygen requirement in the ED of 2 L/min however she is required oxyg en supplementation in the past. After admission the patient had a Falkner PCR as well as respiratory panel 1 and 2 which were negative. It is more likely that the pulmonary findings on CT represented pulmonary edema as the patient had not received hemodialysis. Unfortunately, the patient's cochlear implant will limit MRI compatibility as well as interpretation given the artifact produced by the implant. The patient's oxygen requirement resolved after she received hemodialysis lending further credence to the possibility that she had a mild CHF on admission related to ESRD. ESR and CRP were normal. The patient's vision changes did not improve, she also has myoclonus that may be related to ESRD. Discussed the patient with neurology at [facility] on 09/09/2021, recommended continuing aspirin and Plavix, permissive systolic blood pressure may now be limited to 180 mmHg, PT and OT evaluation. Neurology did not feel that an MRI brain would microsoft exchange architect at this point, could consider repeating a CT scan in a day or 2. 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 -Unable to obtain MRI brain at [facility] due to incompatibility issues with the patient's cochlear implant. -Begin to correct blood pressurem decrease target systolic blood pressure to 180. -Resume home losartan, Isordil, Lasix, holding home Coreg. -Labetalol IV and hydralazine IV as needed. -Echo showed normal LVEF, no anterior atrial shunt, no thrombus. -Repeat noncontrast head CT tomorrow. -Correction Humalog SSI-medium. -Repeat EKG after hemodialysis to check QT interval. -Avoid QT prolonging medications if QT still prolonged after hemodialysis. -Received dexamethasone x1 for nausea. -Renal/consistent carbohydrate diet. -Nephrology consult for hemodialysis. -PT and OT consult. -traffic monitor specialist. -DVT prophylaxis: Heparin SQ. -Disposition: TBD, referral for outpatient compliance monitor. Follow-up with ENT after discharge to evaluate cochlear implant. Consider referral to neurology if the patient's symptoms do not improve. Time Spent With Patient Time: Total time spent is greater than 50% in coordination of care (as documented) at patient's floor/unit and/or counseling patient: QUALITY VTE Deep Vein Thrombosis/Pulmonary Embolism Present on Admission: No
[2021-09-09] MEDS ORDERED: hydrALAZINE 20 MG/ML VIAL IV PRN (10:44)
[2021-09-09] MEDS: CLOPIDOGREL 75 MG TABLET PO SCH (11:29)
[2021-09-09] MEDS: LOSARTAN 50 MG TABLET PO SCH (11:30)
[2021-09-09] MEDS: HEPARIN 5,000 UNIT/ML VIAL SQ SCH ×2 (11:30→20:37)
[2021-09-09] MEDS: CALCIUM ACETATE 667 MG CAPSULE PO SCH ×3 (11:58→17:19)
[2021-09-09] MEDS: SEVELAMER 800 MG TABLET PO SCH ×3 (12:00→17:19)
--- NOTE | 2021-09-09 16:50 | Event Note ---
Event Note Event Note: Discussed with [facility] transfer center at [place], per Dr. Lane neurologist, [facility] would not be able to offer any additional services and Neurologist does not recommend transfer to higher level of care. Due to cochlear implant, MRI finding would be inadequate due to Likely artifacts. Neurologist recommended that we continue treatment at [facility] and declined the transfer. Additionally patient unable to transfer at either [facility] or [facility] due to noncompatible MRI Information was relayed to patient and family. Total time spent on coordination of transfer/discussion with physician and family in excess of 35 minutes
[2021-09-09] MEDS: LABETALOL 5 MG/ML ML IV PRN ×2 (18:45→20:13)
[2021-09-09] MEDS ORDERED: LOSARTAN 50 MG TABLET PO SCH (21:00)
[2021-09-10] MEDS: 0.9 % SODIUM CHLORIDE 10 ML SYRINGE IV SCH ×3 (05:06→20:53)
[2021-09-10] MEDS: ACETAMINOPHEN 325 MG TABLET PO PRN ×3 (06:01→17:14)
[2021-09-10 06:33] LABS: Basophils # (Auto) 0.04 K/mcL (0.00-0.30); Basophils % (Auto) 0.6 % (0.0-2.0); Eosinophils # (Auto) 0.09 K/mcL (0.00-0.70); Eosinophils % (Auto) 1.3 % (0.0-7.0); Hematocrit 40.7 % (34.1-44.9); Hemoglobin 13.8 g/dL (11.2-15.7); Lymphocytes # (Auto) 2.01 K/mcL (1.50-4.80); Lymphocytes % (Auto) 29.3 % (15.5-49.0); Mean Corpuscular HGB Conc 33.9 g/dL (31.0-36.0); Mean Platelet Volume 9.5 fL (7.4-10.4); Monocytes # (Auto) 0.61 K/mcL (0.10-0.90); Monocytes % (Auto) 8.9 % (1.0-12.0); Neutrophils % (Auto) 59.9 % (38.0-78.0); Platelet Count 192 K/mcL (140-440); RBC 3.77 M/mcL (3.59-5.38); Red Cell Distribution Width 14.2 % (11.5-14.5); WBC 6.9 K/mcL (4.5-11.0)
[2021-09-10 07:10] LABS: Albumin 3.9 gm/dL (3.2-5.2); Calcium 8.7 mg/dL (8.6-10.4); Phosphorous 7.7 mg/dL (2.5-4.5)
[2021-09-10] MEDS: INSULIN LISPRO 1 UNIT/0.01 ML UNIT SQ SCH ×4 (07:14→20:52)
--- NOTE | 2021-09-10 07:46 | Nephrology Progress Note ---
SUBJECTIVE Subjective Patient information: Note initiated : 09/10/21 at 7:44 am Patient: Iris Dixon a 56 y/o F admitted on 09/08/21 for dizziness. Chief Complaint: Dizziness Pertinent ROS: Feels better Weakness Constitutional Vitals: Vital Signs Temp Pulse Resp BP Pulse Ox 98 F 73 16 175/84 96 09/10/21 03:35 09/10/21 06:19 09/10/21 06:19 09/10/21 06:01 09/10/21 06:19 Period Temp Pulse Resp BP Sys/Bronson Pulse Ox Last 24 Hr 96.5 F-99.2 F 65-84 10-23 144-237/67-114 85-100 Intake and Output 09/09/21 09/10/21 09/10/21 21:59 05:59 13:59 Output Total 50 Balance -50 Weight 187 lb 3.2 oz Intake & Output: Intake & Output 09/09/21 09/10/21 09/10/21 21:59 05:59 13:59 Output Total 50 Balance -50 Weight 187 lb 3.2 oz Output: Void Amount 50 Other: Urine Appearance Clear Urine Color Dark Yellow Urine Odor Normal General appearance: cooperative and no acute distress Head Head exam: Present normal inspection Eye Eye exam: Present normal appearance ENT ENT exam: Present mucous membranes moist Respiratory Respiratory exam: Absent respiratory distress Cardiovascular Cardiovascular exam: Present normal rate and rhythm GI/Abdominal GI/Abdominal exam: Present soft; Absent tenderness Extremities Exam Extremities exam: Absent joint swelling or pedal edema Neurological Exam Neurological exam: Present alert and oriented X3 Psychiatric Psychiatric exam: Present normal affect and normal mood Skin Skin exam: Present warm; Absent rash A/P Assessment and plan (1) ESRD on hemodialysis: Assessment and plan: Iris Dixon is a 56-year-old female with end stage renal disease on hemodialysis, hypertension, diabetes mellitus type 2, deafness status post right side cochlear implant in June 2021 admitted on 09/08/21. She presented to ED for dizziness, right-sided headache, vertigo, difficulty speaking and confusion. In ED, CT head and CTA head and neck did not show any hemodynamically significant stenosis. Telestroke neurology was consulted by the ED provider, the recommendation was to admit the patient for further work-up including transthoracic echocardiogram and cardiac monitoring. Her labs for significant for hyponatremia (132), metabolic acidosis (19). CXR reported Mild cardiomegaly.Bilateral alveolar opacities which could be pulmonary edema, widespreadpneumonia or a noninfectious inflammatory process.Nephrology consultation was requested for end stage renal disease. End stage renal disease on hemodialysis on Wednesday, Wednesday, Wednesday. Fluid overload with pulmonary edema. Hyperkalemia, resolved. Metabolic acidosis. Recommendations/Plan: Hemodialysis today. The patient seen and evaluated during dialysis at 16:10. Next hemodialysis on Wednesday. Status: Acute Time Spent With Patient Time: Total time spent is greater than 50% in coordination of care (as documented) at patient's floor/unit and/or counseling patient:
[2021-09-10] MEDS: Olopatadine 0.1 % drops OU SCH ×2 (07:48→20:53)
[2021-09-10] MEDS: CALCIUM ACETATE 667 MG CAPSULE PO SCH ×3 (07:59→18:25)
[2021-09-10] MEDS: SEVELAMER 800 MG TABLET PO SCH ×3 (08:00→18:25)
[2021-09-10] MEDS: CLOPIDOGREL 75 MG TABLET PO SCH (08:00)
[2021-09-10] MEDS: HEPARIN 5,000 UNIT/ML VIAL SQ SCH ×2 (08:00→20:52)
[2021-09-10] MEDS: FUROSEMIDE 40 MG TABLET PO SCH ×2 (08:00→20:52)
[2021-09-10] MEDS: ISOSORBIDE DINITRATE 10 MG TABLET PO SCH ×3 (08:00→20:52)
[2021-09-10] MEDS: LOSARTAN 50 MG TABLET PO SCH (08:00)
[2021-09-10] MEDS: DOCUSATE SODIUM 100 MG CAPSULE PO SCH ×2 (08:00→20:42)
--- NOTE | 2021-09-10 09:08 | Cat Scan Report ---
History: Dizziness, follow-up stroke symptoms TECHNIQUE: The brain was imaged without contrast in axial plane at 2.5 mm intervals. Sagittal and coronal reformats were created. The radiation exposure was limited using dose reduction technology. FINDINGS: The right side cochlear implant remains well-positioned. The power pack/control nodule is located in the scalp adjacent to the right parietal bone. This is creating significant beam hardening artifact. The brain appears normal without evidence of an infarct, hemorrhage, edema or mass effect. There are no degenerative changes or atrophy. The ventricles and cisterns are normal. No abnormal extra-axial fluid collection is present. Comparison with the recent study done on 09/08/21 shows no change. IMPRESSION: Normal exam, without evidence of an infarct Interpreted and Authenticated by: Adolfo Yee 09/10/21
--- NOTE | 2021-09-10 10:23 | Internal Med Progress Note ---
SUBJECTIVE Subjective Patient information: Note initiated : 09/10/21 at 10:11 am Service Date, if different from initiated Date: [] Patient: Iris Dixon 56 y/o F admitted on 09/08/21 for dizziness. Chief Complaint: [] Interval history: Zack is a 56 year old female with a history of hypertension, hyperlipidemia, type 2 diabetes mellitus, end-stage renal disease on hemodialysis, deafness status post right side cochlear implant in June 2021 who presented to the emergency department with a right-sided headache, seeing flashes of light, vertigo, difficulty speaking and difficulty with concentration. The patient was evaluated for possible stroke with a noncontrast CT head which was interpreted as normal, CTA head and neck which did not show any hemodynamically significant stenosis. The patient's cochlear implant is not MRI compatible therefore an MRI brain is not feasible. Telestroke neurology was consulted by the ED provider, the recommendation was to admit the patient for further stroke work-up. In the ED, the patient had an EKG which showed normal sinus rhythm and prolonged QTc of 514. Routine lab work showed normal hemoglobin, macrocytosis, anion gap metabolic acidosis, elevated creatinine in keeping with ESRD. The CTA neck lung goode showed bilateral infiltrates versus pulmonary edema, suspicious for possible COVID-pneumonia. A [place] rapid antigen test was done for SARS-CoV-2 and influenza a and B and all were interpreted as negative. [facility] [place] PCR was ordered and pending. Hospital medicine was consulted for admission. The patient says that she is due for hemodialysis today. Her main complaint is fla shes of light, right-sided headache and nausea. The patient's blood pressure was markedly elevated, greater than 200 mm systolic in the ED. We discussed the plan of care with the patient, all questions answered to the best of my ability. 09/09 Patient received hemodialysis this morning. [facility] PCR and respiratory panel is negative. ESR and CRP were normal. Blood pressure markedly elevated, r eceived as needed labetalol. Continuing permissive blood pressure for concern of possible stroke. Patient has intermittent uncontrollable shaking of her upper and lower extremities. Apparently an MRI at [facility] would be possible, this was clarified with ENT. Given the uncertain diagnosis and acute changes the patient experienced I feel the patient would be better served at a higher level of care with neurology consult. 09/10-patient doing better than previous day. Systolics around 160s to 180s. Ongoing hemodialysis. Continuing dual antiplatelet/statin.. Vision changes/flashes much improved and feeling better since admission. However very tearful and anxious and concerns about limited support at home. Discussed with case management for possible transfer to rehab following discharge. Also complains of right-sided swelling pain around the neck and jawline. No overnight fever chills. Sitting on chair eating breakfast. No family at bedside. Discussed treatment plan including discussions with physician/neurologist at [facility]. 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 Constitutional Vitals: Vital Signs Temp Pulse Resp BP Pulse Ox 98.4 F 73 16 184/94 92 09/10/21 08:01 09/10/21 06:19 09/10/21 08:03 09/10/21 08:01 09/10/21 08:01 Period Temp Pulse Resp BP Sys/Bronson Pulse Ox Last 24 Hr 96.5 F-99.2 F 65-84 14-23 144-213/67-100 85-100 Intake and Output 09/09/21 09/10/21 09/10/21 21:59 05:59 13:59 Intake Total 140 Output Total 50 Balance -50 140 Weight 84.912 kg Alert and respond to commands LUE fistula Anxious and tearful Nonlabored breathing Intake & Output: Intake & Output 09/09/21 09/10/21 09/10/21 21:59 05:59 13:59 Intake Total 140 Output Total 50 Balance -50 140 Weight 84.912 kg Intake: Oral 140 Output: Void Amount 50 Other: Meal Breakfast Percent of Meal Consumed 100% Feeding Ability Independent Urine Appearance Clear Urine Color Dark Yellow Urine Odor Normal OBJ DATA Labs CBC & Chem 7: 09/10/21 05:08 09/10/21 05:08 Labs: Abnormal Lab Results 09/10/21 09/10/21 09/09/21 05:08 05:08 05:10 MCV 108.0 H MCH 36.6 H Neut % (Auto) Lymph % (Auto) Lymph # (Auto) Sodium Potassium 5.2 H Chloride 93 L Carbon Dioxide 20 L 16 L Anion Gap 21.0 H 22.0 H BUN 38 H 60 H Creatinine 8.1 H* 10.0 H* Glucose Hemoglobin A1c 7.4 H Phosphorus 7.7 H* 8.1 H* Magnesium Alkaline Phosphatase Triglycerides 234 H HDL Cholesterol 29 L Vitamin B12 1615.0 H Folate Urine Protein Urine Glucose (UA) 09/09/21 09/08/21 09/08/21 05:10 18:02 07:02 MCV 109.6 H MCH 35.4 H Neut % (Auto) Lymph % (Auto) Lymph # (Auto) Sodium Potassium Chloride Carbon Dioxide Anion Gap BUN Creatinine Glucose Hemoglobin A1c Phosphorus Magnesium 2.6 H Alkaline Phosphatase Triglycerides HDL Cholesterol Vitamin B12 Folate > 20.0 H Urine Protein Urine Glucose (UA) 09/08/21 09/08/21 09/08/21 05:36 05:08 05:08 MCV 107.3 H MCH 36.5 H Neut % (Auto) 79.9 H Lymph % (Auto) 13.2 L Lymph # (Auto) 1.17 L Sodium 132 L Potassium Chloride 94 L Carbon Dioxide 19 L Anion Gap 19.0 H BUN 50 H Creatinine 8.5 H* Glucose 284 H Hemoglobin A1c Phosphorus Magnesium Alkaline Phosphatase 124 H Triglycerides HDL Cholesterol Vitamin B12 Folate Urine Protein 100 A Urine Glucose (UA) >=500 A Meds: Medications Acetaminophen (Acetaminophen 325 Mg Tablet) 650 mg PO Q6HP PRN; Protocol PRN Reason: Per Pain Protocol/Fever > 101 Last Admin: 09/10/21 06:01 Dose: 650 mg Documented by: Acetaminophen/Butalbital/Caffeine (Butalb/Acetaminophen/Caffeine 1 Tablet) 1 tab PO Q4HP PRN PRN Reason: Headache Hydrocodone Bitart/Acetaminophen (Hydrocodone/Apap 5/325mg Tablet) 1 tab PO Q6HP PRN; Protocol PRN Reason: Per Pain Protocol Albuterol Sulfate (Albuterol Sulfate 200 Puff Inhaler) 2 puff INH Q6H PRN PRN Reason: shortness of breath or wheezing Aspirin (Aspirin 81 Mg Tab.Chew) 81 mg PO QPM [facility] Last Admin: 09/09/21 20:37 Dose: 81 mg Documented by: Atorvastatin Calcium (Atorvastatin 20 Mg Tablet) 20 mg PO HS [facility] Last Admin: 09/09/21 20:37 Dose: 20 mg Documented by: Calcium Acetate (Calcium Acetate 667 Mg Capsule) 1,334 mg PO TIDCC [facility] Last Admin: 09/10/21 07:59 Dose: 1,334 mg Documented by: Clopidogrel Bisulfate (Clopidogrel 75 Mg Tablet) 75 mg PO QAM [facility] Last Admin: 09/10/21 08:00 Dose: 75 mg Documented by: Dextrose (Dextrose 50% 50 Ml Vial) 0 ml IV UD PRN PRN Reason: Per Sliding Scale Diagnostic Test (Pha) (Accu-Chek 1 Each Strip) 1 each FS [facility] Last Admin: 09/10/21 07:07 Dose: 1 each Documented by: Docusate Sodium (Docusate Sodium 100 Mg Capsule) 100 mg PO BID [facility] Last Admin: 09/10/21 08:00 Dose: Not Given Documented by: Furosemide (Furosemide 40 Mg Tablet) 80 mg PO BID [facility] Last Admin: 09/10/21 08:00 Dose: 80 mg Documented by: Glucose (Dextrose 31 Gm Oral.Susp) 15 gm PO PRN PRN PRN Reason: Hypoglycemia Heparin Sodium (Porcine) (Heparin 5,000 Unit/Ml Vial) 5,000 unit SQ Q12 [facility] Last Admin: 09/10/21 08:00 Dose: 5,000 unit Documented by: Hydralazine HCl (Hydralazine 20 Mg/Ml Vial) 10 mg IV Q4-6HP PRN PRN Reason: Hypertension Hydromorphone HCl (Hydromorphone 0.5 Mg/0.5 Ml Syringe) 0.5 mg IV Q4HP PRN; Protocol PRN Reason: Per Pain Protocol Insulin Human Lispro (Insulin Lispro 1 Unit/0.01 Ml Unit) 0 unit SQ [facility]; Protocol Last Admin: 09/10/21 07:14 Dose: Not Given Documented by: Isosorbide Dinitrate (Isosorbide Dinitrate 10 Mg Tablet) 10 mg PO TID [facility] Last Admin: 09/10/21 08:00 Dose: 10 mg Documented by: Labetalol HCl (Labetalol 5 Mg/Ml Ml) 10 mg IV Q10M PRN PRN Reason: Hypertension Last Admin: 09/09/21 20:13 Dose: 10 mg Documented by: Lactulose (Lactulose 20 Gm/30 Ml Oral.Oneyda) 10 gm PO DAILYP PRN PRN Reason: Constipation Losartan Potassium (Losartan 50 Mg Tablet) 50 mg PO QAM [facility] Last Admin: 09/10/21 08:00 Dose: 50 mg Documented by: Losartan Potassium (Losartan 50 Mg Tablet) [facility] Last Admin: 09/09/21 20:38 Dose: Not Given Documented by: Olopatadine 0.1 % (Drops) 1 dose OU BID [facility] Last Admin: 09/10/21 07:48 Dose: Not Given Documented by: Senna (Sennosides 1 Tablet) 2 tab PO HSP PRN PRN Reason: Constipation Sevelamer Carbonate (Sevelamer 800 Mg Tablet) 2,400 mg PO TIDCC [facility] Last Admin: 09/10/21 08:00 Dose: 2,400 mg Documented by: Sodium Chloride (0.9 % Sodium Chloride 10 Ml Syringe) 10 ml IV Q8 [facility] Last Admin: 09/10/21 05:06 Dose: 10 ml Documented by: Valacyclovir HCl (Valacyclovir 500 Mg Tablet) 500 mg PO QPM [facility]; Protocol Last Admin: 09/09/21 20:37 Dose: 500 mg Documented by: A/P Narrative A/P Narrative: Assessment: 56 year old female with a history of ESRD on HD/HTN/T2DM/HLD/ status post right side cochlear implant in June 2021 who presented to the emergency department with a right-sided headache, visual flashes, difficulty speaking and difficulty with concentration. 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 Continue dual antiplatelet/statin per stroke neurology. Also case discussed with Dr. Lane at [facility]. No additional intervention or imaging recommended at this time. Neurodeficits starting to improve. Feels a lot better today. Noncon CT today * HTN urgency continue as needed labetalol/pre-existing home medications including Coreg/isosorbide/losartan ongoing dialysis and management per nephrology. Echo normal EF * Acute [id number] Augmentin * Acute respiratory failure with hypoxia clinically resolved secondary to CHF. Resolved with dialysis * Intermittent myoclonus, improving * ESRD on HD * Type II DM CC diet/sliding scale * Deafness status postcochlear implant July 08 * Prophylaxis Heparin Plan * Dual antiplatelet/statin * CT Noncon head * Aggressive postop rehab * Augmentin for 3 days * Case management coordinate SNF transfer * Hypertension management/ESRD/dialysis per nephrology * Pre-existing medical condition management home medications * PT OT nutrition support * Discharge planning likely SNF * Follow-up ENT for evaluation of cochlear implant Time Spent With Patient Time: Total time spent is greater than 50% in coordination of care (as documented) at patient's floor/unit and/or counseling patient: Total time spent with greater than 50% in coordination of care (as documented) at patient's floor/unit and/or counseling patient:: 25 - 35 minutes QUALITY VTE Deep Vein Thrombosis/Pulmonary Embolism Present on Admission: No
[2021-09-10] MEDS: LABETALOL 5 MG/ML ML IV PRN (12:09)
[2021-09-10] MEDS: AMOXICILLIN/POTASSIUM CLAV 500 MG TABLET PO SCH ×2 (12:10→20:52)
[2021-09-10] MEDS: ASPIRIN 81 MG TAB.CHEW PO SCH (20:52)
[2021-09-10] MEDS: valACYclovir 500 MG TABLET PO SCH (20:53)
[2021-09-10] MEDS: ATORVASTATIN 20 MG TABLET PO SCH (20:53)
[2021-09-11] MEDS: LABETALOL 5 MG/ML ML IV PRN (03:23)
[2021-09-11] MEDS: ACETAMINOPHEN 325 MG TABLET PO PRN (03:23)
[2021-09-11] MEDS: 0.9 % SODIUM CHLORIDE 10 ML SYRINGE IV SCH (05:42)
[2021-09-11 07:14] LABS: Albumin 3.9 gm/dL (3.2-5.2); Blood Urea Nitrogen 27 mg/dL (6-20); Calcium 8.9 mg/dL (8.6-10.4); Carbon Dioxide 21 mmol/L (22-30); Chloride 91 mmol/L (96-108); Glomerular Filtration Rate 8; Glucose 96 mg/dL (70-105); Phosphorous 5.1 mg/dL (2.5-4.5)
[2021-09-11] MEDS: INSULIN LISPRO 1 UNIT/0.01 ML UNIT SQ SCH ×2 (08:01→11:55)
[2021-09-11] MEDS ORDERED: ONDANSETRON 4 MG/2 ML VIAL IV PRN (08:18)
[2021-09-11] MEDS: CLOPIDOGREL 75 MG TABLET PO SCH (09:01)
[2021-09-11] MEDS: CALCIUM ACETATE 667 MG CAPSULE PO SCH ×2 (09:01→12:03)
[2021-09-11] MEDS: LOSARTAN 50 MG TABLET PO SCH (09:02)
[2021-09-11] MEDS: AMOXICILLIN/POTASSIUM CLAV 500 MG TABLET PO SCH (09:02)
[2021-09-11] MEDS: FUROSEMIDE 40 MG TABLET PO SCH (09:02)
[2021-09-11] MEDS: SEVELAMER 800 MG TABLET PO SCH ×2 (09:02→12:03)
[2021-09-11] MEDS: DOCUSATE SODIUM 100 MG CAPSULE PO SCH (09:02)
[2021-09-11] MEDS: HEPARIN 5,000 UNIT/ML VIAL SQ SCH (09:17)
[2021-09-11] MEDS: ISOSORBIDE DINITRATE 10 MG TABLET PO SCH (09:20)
--- NOTE | 2021-09-11 09:52 | Nephrology Progress Note ---
SUBJECTIVE Subjective Patient information: Note initiated : 09/11/21 at 9:47 am Service Date, if different from initiated Date: [] Patient: Iris Dixon 56 y/o F admitted on 09/08/21 for dizziness. Chief Complaint: [H/A and accelerated HTN] Principal diagnosis: PRES is the working HD Interval history: Difficult to control BP with lability and post HD dizziness. Can't due MRI but sure looks like malignant HTN or PRESS Syndrome I recommend short acting Rx for BP control so the dose imediatly before HD can be held to allow the most hemodynamic stability and if BP too low can skip a dose as short acting Rx works good for this. Suggest: Carvedilol 12.5 mg po q12 hours Captopril 12.5 mg po q6 hours Isosorbide dinitrate 10 mg po q12 hours Next HD today as outpatient. Pertinent ROS: Improved mentation Cannot do MRI Additional PMFSH (Level 3 Only): N/A Constitutional Vitals: Vital Signs Temp Pulse Resp BP Pulse Ox 36.6 C 74 16 153/65 97 09/11/21 08:01 09/11/21 08:23 09/11/21 04:01 09/11/21 08:01 09/11/21 08:23 Period Temp Pulse Resp BP Sys/Bronson Pulse Ox Last 24 Hr 35.9 C-36.9 C 65-87 16-16 93-197/56-126 92-100 Intake and Output 09/10/21 09/11/21 09/11/21 21:59 05:59 13:59 Intake Total 200 360 Output Total 2100 Balance -1900 360 Weight 83.688 kg Intake & Output: Intake & Output 09/10/21 09/11/21 09/11/21 21:59 05:59 13:59 Intake Total 200 360 Output Total 2100 Balance -1900 360 Weight 83.688 kg Intake: Oral 200 360 Output: Hemodialysis UF 2100 Other: Meal Dinner Percent of Meal Consumed 100% Feeding Ability Independent General appearance: mild distress and obese Head Head exam: Present normal inspection Eye Eye exam: Present [facility] ENT Additional comments: KLUTI KAAH and recent cholear implant but not yet adjusted Neck Neck exam: Absent meningismus Respiratory Respiratory exam: Present CTAB Cardiovascular Cardiovascular exam: Present RRR, +S1 and +S2 GI/Abdominal GI/Abdominal exam: Present normal bowel sounds Neurological Exam Neurological exam: Present abnormal gait and CN II-XII intact (Near deafness) Psychiatric Psychiatric exam: Present anxious Skin Skin exam: Present dry, intact and warm A/P Assessment and plan (1) Accelerated hypertension: Assessment and plan: With post circulation Sx but unable to do MRI...PRES is suspected. CT scan neg. Improved MS with better BP control Status: Acute Comment: Switch to all short acting blood pressure medication Carvedilol 25 mg twice a day Captopril 25 mg every 6 hours Isosorbide dinitrate 20 mg twice a day Furosemide 40 mg a day which is probably ineffective in the ESRD and unilateral nephrectomy Stop her losartan Hold parameters have been written for her blood pressure medications (2) End-stage renal disease (ESRD): Plan: Continue outpatient dialysis Status: Chronic Comment: Hemodialysis every Wednesday and Wednesday (3) History of nephrectomy: Status: Chronic Comment: 1996 right (4) Secondary hyperparathyroidism of renal origin: Status: Acute Comment: Continue phosphate binders and 1,25 vitamin D2 analogs (5) Anemia in ESRD (end-stage renal disease): Status: Acute Comment: Received Aranesp yesterday on dialysis Plan Discharge BP Rx: Carvedilol 25 mg twice a day (hold if BP < 110/60) Captopril 25 mg every 6 hours Isosorbide dinitrate 20 mg twice a day (Hold if BP < 110/60) Furosemide 40 mg a day which is probably ineffective in the ESRD and unilateral nephrectomy Call Dr Kyle bañuelos attempting BP changes Narrative A/P Narrative: Continue outpatient dialysis [facility]charge [facility] [place] outpatient PT and OT Blood pressure medication changes as recommended above Prescription written for home blood pressure monitoring cuff Anxiety probably plays a role in her blood pressure Time Spent With Patient Time: Total time spent is greater than 50% in coordination of care (as documented) at patient's floor/unit and/or counseling patient:
[2021-09-11] MEDS ORDERED: CARVEDILOL 12.5 MG TABLET PO SCH (10:15)
--- NOTE | 2021-09-11 10:22 | Internal Med Progress Note ---
SUBJECTIVE Subjective Patient information: Note initiated : 09/11/21 at 10:18 am Service Date, if different from initiated Date: [] Patient: Iris Dixon 56 y/o F admitted on 09/08/21 for dizziness. Chief Complaint: [] Principal diagnosis: PRES is the working HD Interval history: Zack is a 56 year old female with a history of hypertension, hyperlipidemia, type 2 diabetes mellitus, end-stage renal disease on hemodialysis, deafness status post right side cochlear implant in June 2021 who presented to the emergency department with a right-sided headache, seeing flashes of light, vertigo, difficulty speaking and difficulty with concentration. The patient was evaluated for possible stroke with a noncontrast CT head which was interpreted as normal, CTA head and neck which did not show any hemodynamically significant stenosis. The patient's cochlear implant is not MRI compatible therefore an MRI brain is not feasible. Telestroke neurology was consulted by the ED provider, the recommendation was to admit the patient for further stroke work-up. In the ED, the patient had an EKG which showed normal sinus rhythm and prolonged QTc of 514. Routine lab work showed normal hemoglobin, macrocytosis, anion gap metabolic acidosis, elevated creatinine in keeping with ESRD. The CTA neck lung goode showed bilateral infiltrates versus pulmonary edema, suspicious for possible COVID-pneumonia. A Mary Alice rapid antigen test was done for SARS-CoV-2 and influenza a and B and all were interpreted as negative. [place] PCR was ordered and pending. Hospital medicine was consulted for admission. The patient says that she is due for hemodialysis today. Her main complaint is flashes of light, right-sided headache and nausea. The patient's blood pressure was markedly elevated, greater than 200 mm systolic in the ED. We discussed the plan of care with the patient, all questions answered to the best of my a bility. 09/09 Patient received hemodialysis this morning. [place] PCR and respiratory panel is negative. ESR and CRP were normal. Blood pressure markedly elevated, received as needed labetalol. Continuing permissive blood pressure for concern of possible stroke. Patient has intermittent uncontrollable shaking of her upper and lower extremities. Apparently an MRI at [facility] would be possible, this was clarified with ENT. Given the uncertain diagnosis and acute changes the patient experienced I feel the patient would be better served at a higher level of care with neurology consult. 09/10-patient doing better than previous day. Systolics around 160s to 180s. Ongoing hemodialysis. Continuing dual antiplatelet/statin.. Vision changes/flashes much improved and feeling better since admission. However very tearful and anxious and concerns about limited support at home. Discussed with case management for possible transfer to rehab following discharge. Also complains of right-sided swelling pain around the neck and jawline. No overnight fever chills. Sitting on chair eating breakfast. No family at bedside. Discussed treatment plan including discussions with physician/neur ologist at [facility]. Also case discussed with Dr. Barone hydraulic jack operator regarding patient's hypertension optimization. 09/11-. Patient feeling a lot better. Systolics labile but at goal. Ongoing di alysis. Head CT no evidence of infarct. MRI could not performed. Currently on dual antiplatelet/statin. Anticipate discharge to SNF. Pending physical therapy evaluation. Continue nutrition support. Continue telemetry monitoring due to labile hypertension. Family at bedside including daughter Ania. Updated on clinical progress and possible transfer to SNF for continued rehab. Constitutional Vitals: Vital Signs Temp Pulse Resp BP Pulse Ox 97.9 F 74 16 153/65 97 09/11/21 08:01 09/11/21 08:23 09/11/21 04:01 09/11/21 08:01 09/11/21 08:23 Period Temp Pulse Resp BP Sys/Bronson Pulse Ox Last 24 Hr 96.6 F-98.5 F 65-87 16-16 93-197/56-126 92-100 Intake and Output 09/10/21 09/11/21 09/11/21 21:59 05:59 13:59 Intake Total 200 360 Output Total 2100 Balance -1900 360 Weight 83.688 kg Alert oriented Nonlabored breathing Hard of hearing No telemetry events Intake & Output: Intake & Output 09/10/21 09/11/21 09/11/21 21:59 05:59 13:59 Intake Total 200 360 Output Total 2100 Balance -1900 360 Weight 83.688 kg Intake: Oral 200 360 Output: Hemodialysis UF 2100 Other: Meal Dinner Percent of Meal Consumed 100% Feeding Ability Independent OBJ DATA Labs CBC & Chem 7: 09/10/21 05:08 09/11/21 05:08 Labs: Abnormal Lab Results 09/11/21 09/10/21 09/10/21 05:08 05:08 05:08 MCV 108.0 H MCH 36.6 H Sodium 131 L Potassium Chloride 91 L 93 L Carbon Dioxide 21 L 20 L Anion Gap 19.0 H 21.0 H BUN 27 H 38 H Creatinine 5.8 H* 8.1 H* Hemoglobin A1c Phosphorus 5.1 H 7.7 H* Magnesium Triglycerides HDL Cholesterol Vitamin B12 09/09/21 09/09/21 09/08/21 05:10 05:10 18:02 MCV 109.6 H MCH 35.4 H Sodium Potassium 5.2 H Chloride Carbon Dioxide 16 L Anion Gap 22.0 H BUN 60 H Creatinine 10.0 H* Hemoglobin A1c 7.4 H Phosphorus 8.1 H* Magnesium 2.6 H Triglycerides 234 H HDL Cholesterol 29 L Vitamin B12 1615.0 H Meds: Medications Acetaminophen (Acetaminophen 325 Mg Tablet) 650 mg PO Q6HP PRN; Protocol PRN Reason: Per Pain Protocol/Fever > 101 Last Admin: 09/11/21 03:23 Dose: 650 mg Documented by: Acetaminophen/Butalbital/Caffeine (Butalb/Acetaminophen/Caffeine 1 Tablet) 1 tab PO Q4HP PRN PRN Reason: Headache Last Admin: 09/11/21 08:53 Dose: 1 tab Documented by: Hydrocodone Bitart/Acetaminophen (Hydrocodone/Apap 5/325mg Tablet) 1 tab PO Q6HP PRN; Protocol PRN Reason: Per Pain Protocol Albuterol Sulfate (Albuterol Sulfate 200 Puff Inhaler) 2 puff INH Q6H PRN PRN Reason: shortness of breath or wheezing Amoxicillin/Clavulanate Potassium (Amoxicillin/Potassium Clav 500 Mg Tablet) [facility] Stop: 09/12/21 17:31 Last Admin: 09/11/21 09:02 Dose: 500 mg Documented by: Aspirin (Aspirin 81 Mg Tab.Chew) 81 mg PO QPM [facility] Last Admin: 09/10/21 20:52 Dose: 81 mg Documented by: Atorvastatin Calcium (Atorvastatin 20 Mg Tablet) 20 mg PO [facility] Last Admin: 09/10/21 20:53 Dose: 20 mg Documented by: Calcium Acetate (Calcium Acetate 667 Mg Capsule) 1,334 mg PO TIDCC [facility] Last Admin: 09/11/21 09:01 Dose: 1,334 mg Documented by: Captopril (Captopril 25 Mg Tablet) 12.5 mg PO Q6H [facility] Carvedilol (Carvedilol 12.5 Mg Tablet) 25 mg PO Q12H [facility] Clopidogrel Bisulfate (Clopidogrel 75 Mg Tablet) 75 mg PO QAM [facility] Last Admin: 09/11/21 09:01 Dose: 75 mg Documented by: Dextrose (Dextrose 50% 50 Ml Vial) 0 ml IV UD PRN PRN Reason: Per Sliding Scale Diagnostic Test (Pha) (Accu-Chek 1 Each Strip) 1 each FS [facility] Last Admin: 09/11/21 07:57 Dose: 1 each Documented by: Docusate Sodium (Docusate Sodium 100 Mg Capsule) 100 mg PO BID [facility] Last Admin: 09/11/21 09:02 Dose: 100 mg Documented by: Furosemide (Furosemide 40 Mg Tablet) 80 mg PO BID [facility] Last Admin: 09/11/21 09:02 Dose: 80 mg Documented by: Glucose (Dextrose 31 Gm Oral.Susp) 15 gm PO PRN PRN PRN Reason: Hypoglycemia Heparin Sodium (Porcine) (Heparin 5,000 Unit/Ml Vial) 5,000 unit SQ Q12 [facility] Last Admin: 09/11/21 09:17 Dose: 5,000 unit Documented by: Hydralazine HCl (Hydralazine 20 Mg/Ml Vial) 10 mg IV Q4-6HP PRN PRN Reason: Hypertension Last Admin: 09/10/21 12:38 Dose: 10 mg Documented by: Hydromorphone HCl (Hydromorphone 0.5 Mg/0.5 Ml Syringe) 0.5 mg IV Q4HP PRN; Protocol PRN Reason: Per Pain Protocol Insulin Human Lispro (Insulin Lispro 1 Unit/0.01 Ml Unit) 0 unit SQ [facility]; Protocol Last Admin: 09/11/21 08:01 Dose: Not Given Documented by: Isosorbide Dinitrate (Isosorbide Dinitrate 10 Mg Tablet) 10 mg PO TID [facility] Last Admin: 09/11/21 09:20 Dose: 10 mg Documented by: Isosorbide Dinitrate (Isosorbide Dinitrate 10 Mg Tablet) 20 mg PO Q12 [facility] Labetalol HCl (Labetalol 5 Mg/Ml Ml) 10 mg IV Q10M PRN PRN Reason: Hypertension Last Admin: 09/11/21 03:23 Dose: 10 mg Documented by: Lactulose (Lactulose 20 Gm/30 Ml Oral.Oneyda) 10 gm PO DAILYP PRN PRN Reason: Constipation Last Admin: 09/11/21 09:02 Dose: 10 gm Documented by: Losartan Potassium (Losartan 50 Mg Tablet) 50 mg PO QAM [facility] Last Admin: 09/11/21 09:02 Dose: 50 mg Documented by: Losartan Potassium (Losartan 50 Mg Tablet) 50 mg PO SuTuThSa [facility] Last Admin: 09/09/21 20:38 Dose: Not Given Documented by: Ondansetron HCl (Ondansetron 4 Mg/2 Ml Vial) 4 mg IV Q4HP PRN PRN Reason: Nausea And Vomiting Last Admin: 09/11/21 08:53 Dose: 4 mg Documented by: Olopatadine 0.1 % (Drops) 1 dose OU BID [facility] Last Admin: 09/10/21 20:53 Dose: Not Given Documented by: Senna (Sennosides 1 Tablet) 2 tab PO HSP PRN PRN Reason: Constipation Sevelamer Carbonate (Sevelamer 800 Mg Tablet) 2,400 mg PO TIDCC [facility] Last Admin: 09/11/21 09:02 Dose: 2,400 mg Documented by: Sodium Chloride (0.9 % Sodium Chloride 10 Ml Syringe) 10 ml IV Q8 [facility] Last Admin: 09/11/21 05:42 Dose: 10 ml Documented by: Valacyclovir HCl (Valacyclovir 500 Mg Tablet) 500 mg PO QPM [facility]; Protocol Last Admin: 09/10/21 20:53 Dose: 500 mg Documented by: A/P Narrative A/P Narrative: Assessment: 56 year old female with a history of ESRD on HD/HTN/T2DM/HLD/ status post right side cochlear implant in June 2021 who presented to the emergency department with a right-sided headache, visual flashes, difficulty speaking and difficulty with concentration. * Ischemic CVA with consistent with posterior circulation, likely in setting of hypertension/PRES . Continue dual antiplatelet/statin per stroke neurology. Also case discussed with Dr. Lane at [facility]. No additional intervention or imaging recommended at this time. Neurodeficits continues to improve. Noncon CT no acute CVA * HTN urgency continue as needed labetalol/pre-existing home medications including Coreg/isosorbide/losartan ongoing dialysis and management per nephrology. Echo normal EF. Continue optimization per nephrology * Acute parotitis-improved, additional 2 days Augmentin * Acute respiratory failure with hypoxia clinically resolved secondary to CHF. Resolved with dialysis * Intermittent myoclonus, improving * ESRD on HD * Type II DM CC diet/sliding scale * Deafness status postcochlear implant July 08 * Prophylaxis Heparin Plan * Continue dual antiplatelet/statin possible SNF transfer * Aggressive postop rehab, * Augmentin for 48 hours * Hypertension management/ESRD/dialysis per nephrology * Pre-existing medical condition management home medication * Nutrition support * Follow-up ENT for evaluation of cochlear implant Time Spent With Patient Time: Total time spent is greater than 50% in coordination of care (as documented) at patient's floor/unit and/or counseling patient: QUALITY VTE Deep Vein Thrombosis/Pulmonary Embolism Present on Admission: No
[2021-09-11] MEDS: Olopatadine 0.1 % drops OU SCH (10:35)
[2021-09-11] MEDS ORDERED: CAPTOPRIL 12.5 MG TABLET PO SCH (11:00)
--- NOTE | 2021-09-11 12:49 | Discharge Summary ---
Discharge Provider Provider Patient information: Note initiated : 09/11/21 at 12:46 pm Service Date, if different from initiated Date: [] Patient: Iris Dixon 56 y/o F admitted on 09/08/21 for dizziness. Chief Complaint: [] Date of admission: 09/08/21 17:35 Discharge date: 09/11/21 Primary care physician: Physician Not On Staff Consults: 09/08/21 Consult to Physician [CONS] Stat Comment: Consulting Provider: Willie Kamara Reason For Exam: Physician to Consult 09/08/21 12:26 Consult to Physician [CONS] Stat Comment: Consulting Provider: Telestroke,Provider Reason For Exam: Physician to Consult 09/08/21 17:39 Consult to Physician [CONS] Stat Comment: Consulting Provider: Zain Barone Reason For Exam: Physician to Consult Discharge Meds Discharge Medications Home Medications blood pressure monitor #1 each 11/01/15 [Rx Confirmed 09/08/21 Last Taken 08/18/17 09:00] clopidogrel 75 mg tablet 75 mg PO QAM 12/13/19 [History Confirmed 09/08/21 Last Taken 03/27/20 08:00] olopatadine 0.1 % eye drops 1 drp OPHTHALMIC BID 12/13/19 [History Confirmed 09/08/21 Last Taken Unknown] albuterol sulfate 90 mcg/actuation aerosol inhaler (Proventil HFA) 2 puff INHALATION Q6H PRN #6.7 g 01/18/20 [Rx Confirmed 09/08/21 Last Taken 03/27/20 01:00] valacyclovir 500 mg tablet 500 mg PO QPM 03/28/20 [History Confirmed 09/08/21 Last Taken Unknown] furosemide 40 mg tablet 80 mg PO BID #120 tab 10/01/20 [Rx Confirmed 09/08/21 Last Taken Unknown] sevelamer carbonate 800 mg tablet 2,400 mg PO TID #300 tab 12/09/20 [Rx Confirmed 09/08/21 Last Taken Unknown] rosuvastatin 20 mg tablet (Crestor) 10 mg PO HS #30 tab 12/10/20 [Rx Confirmed 09/08/21 Last Taken Unknown] omega 3-leg-cjs-fish oil 500 mg (200mg-300mg)-1,000 mg capsule (Ultra Norton-3) 1 cap PO BID #60 tab 06/06/21 [Rx Confirmed 09/08/21 Last Taken Unknown] isosorbide dinitrate 10 mg tablet See Rx Instructions PO TID #90 tab 06/24/21 [Rx Confirmed 09/08/21 Last Taken Unknown] calcium acetate(phosphat bind) 667 mg capsule 1,334 mg PO .TID c c #180 cap 07/01/21 [Rx Confirmed 09/08/21 Last Taken Unknown] B-complex with vitamin C 1 tab PO QAM 09/08/21 [History Confirmed 09/08/21 Last Taken Unknown] aspirin 81 mg chewable tablet 81 mg PO QPM 09/08/21 [History Confirmed 09/08/21 Last Taken Unknown] cyanocobalamin (vitamin B-12) 1,000 mcg tablet 1,000 mcg PO QAM 09/08/21 [History Confirmed 09/08/21 Last Taken Unknown] glipizide 5 mg tablet 5 mg PO BID 09/08/21 [History Confirmed 09/08/21 Last Taken Unknown] amoxicillin 500 mg-potassium clavulanate 125 mg tablet 500 mg PO BIDCC #4 tab 09/11/21 [Rx Last Taken Unknown] captopril 12.5 mg tablet 12.5 mg PO Q6H #120 tab 09/11/21 [Rx Last Taken Unknown] carvedilol 12.5 mg tablet 25 mg PO Q12H #60 tab 09/11/21 [Rx Last Taken Unknown] COURSE Hospital Course Hospital course: Discharge diagnosis * Ischemic CVA consistent with posterior circulation deficits, likely in setting of hypertension/PRES . Continue dual antiplatelet/statin per stroke neurology. Also case discussed with Dr. Lane at [facility]. No additional intervention or imaging recommended at this time. Neurodeficits continues to improve. Noncon CT no acute CVA. Continue aggressive rehab at [facility] * HTN urgency continue as needed labetalol/pre-existing home medications including Coreg/isosorbide/losartan ongoing dialysis and management per nephrology. Echo normal EF. Continue optimization per nephrology * Acute parotitis-improved, additional 2 days Augmentin * Acute respiratory failure with hypoxia clinically resolved secondary to CHF. Resolved with dialysis * Intermittent myoclonus, resolved. * ESRD on HD. Continue scheduled hemodialysis outpatient * Type II DM CC diet/sliding scale * Deafness status postcochlear implant July 08 * Prophylaxis Heparin Brief hospital course Zack is a 56 year old female with a history of hypertension, hyperlipidemia, type 2 diabetes mellitus, end-stage renal disease on hemodialysis, deafness status post right side cochlear implant in June 2021 who presented to the emergency department with a right-sided headache, seeing flashes of light, vertigo, difficulty speaking and difficulty with concentration. The patient was evaluated for possible stroke with a noncontrast CT head which was interpreted as normal, CTA head and neck which did not show any hemodynamically significant stenosis. The patient's cochlear implant is not MRI compatible therefore an MRI brain is not feasible. Telestroke neurology was consulted by the ED provider, the recommendation was to admit the patient for further stroke work-up. In the ED, the patient had an EKG which showed normal sinus rhythm and prolonged QTc of 514. Routine lab work showed normal hemoglobin, macrocytosis, anion gap metabolic acidosis, elevated creatinine in keeping with ESRD. The CTA neck lung goode showed bilateral infiltrates versus pulmonary edema, suspicious for possible COVID-pneumonia. A [place] rapid antigen test was done for SARS-CoV-2 and influenza a and B and all were interpreted as negative. [place] PCR was ordered and pending. Hospital medicine was consulted for admission. The pat fidel says that she is due for hemodialysis today. Her main complaint is flashes of light, right-sided headache and nausea. The patient's blood pressure was markedly elevated, greater than 200 mm systolic in the ED. We discussed the plan of care with the patient, all questions answered to the best of my ability. 09/09 Patient received hemodialysis this morning. [place] PCR and respiratory panel is negative. ESR and CRP were normal. Blood pressure markedly elevated, received as needed labetalol. Continuing permissive blood pressure for concern of possible stroke. Patient has intermittent uncontrollable shaking of her upper and lower extremities. Apparently an MRI at [facility] would be possible, this was clarified with ENT. Given the uncertain diagnosis and acute changes the patient experienced I feel the patient would be better served at a higher level of care with neurology consult. 09/10-patient doing better than previous day. Systolics around 160s to 180s. Ongoing hemodialysis. Continuing dual antiplatelet/statin.. Vision changes/flashes much improved and feeling better since admission. However very tearful and anxious and concerns about limited support at home. Discussed with case management for possible transfer to rehab following discharge. Also complains of right-sided swelling pain around the neck and jawline. No overnight fever chills. Sitting on chair eating breakfast. No family at bedside. Discussed treatment plan including discussions with physician/neurologist at [facility]. Also case discussed with Dr. Barone senior hris analyst regarding patient's hypertension optimization. 09/11-. Patient feeling a lot better. Systolics labile but at goal. Ongoing dialysis. Head CT no evidence of infarct. MRI could not performed. Currently on dual antiplatelet/statin. Anticipate discharge to SNF. Pending physical therapy evaluation. Continue nutrition support. Continue telemetry monitoring due to labile hypertension. Family at bedside including daughter Ania. Updated on clinical progress and possible transfer to SNF for continued rehab. Case management is able able to arrange SNF transfer today. Discharge with recommendations as above Discharge diagnosis: . Time Spent with Patient Time attestation: Total time spent providing and/or coordinating discharge services: EXAM Constitutional Vitals: Temp Pulse Resp BP Pulse Ox 97.9 F 79 16 172/92 96 09/11/21 08:01 09/11/21 11:25 09/11/21 04:01 09/11/21 11:25 09/11/21 11:25 Discharge Data Data Completed and Pending Labs on day of discharge: Labs from last 24 hours 09/11/21 05:08 Sodium 131 L Potassium 4.0 Chloride 91 L Carbon Dioxide 21 L Anion Gap 19.0 H BUN 27 H Creatinine 5.8 H* GFR Calculation 8 Glucose 96 Calcium 8.9 Phosphorus 5.1 H Albumin 3.9 Discharge Plan Patient/Caregiver Discharge Instructions Activity: as per physical therapy Diet: Renal Activity Restrictions/Additional Instructions: * Continue dual antiplatelets/statin * Follow-up neurology earliest possible appointment * Follow-up PCP in 5 to 7 days * Follow-up nephrology for continued hemodialysis * Augmentin for additional 4 doses * Continue aggressive PT OT/rehab * Follow-up ENT for evaluation of cochlear implant Prescriptions: New carvedilol 12.5 mg Tablet 25 mg PO Q12H Qty: 60 0RF captopril 12.5 mg Tablet 12.5 mg PO Q6H Qty: 120 0RF amoxicillin-pot clavulanate 500-125 mg Tablet 500 mg PO BIDCC Qty: 4 0RF Continued olopatadine 0.1 % drops 1 drp OPHTHALMIC BID 0RF Rx Instructions: 1 gtt in each affected eye (0.1% solution) 2 times a day clopidogrel 75 mg tablet 75 mg PO QAM 0RF Rx Instructions: 75 mg orally (75 mg tablet) once a day (in the morning) albuterol sulfate [Proventil HFA] 90 mcg/actuation HFA aerosol inhaler 2 puff INHALATION Q6H PRN (Reason: shortness of breath or wheezing) Qty: 6.7 2RF furosemide 40 mg tablet 80 mg PO BID Qty: 120 11RF Rx Instructions: New correct dose sevelamer carbonate 800 mg tablet 2,400 mg PO TID Qty: 300 11RF Rx Instructions: must administer with a meal/food. Dose adjustment based on monthly labs at HD unit rosuvastatin [Crestor] 20 mg tablet 10 mg PO HS Qty: 30 11RF Ultra Norton-3 500-1,000 mg capsule 1 cap PO BID Qty: 60 2RF isosorbide dinitrate 10 mg tablet See Rx Instructions PO TID Qty: 90 11RF Rx Instructions: 10 mg orally three times daily and skip evening dose on MWF after dialysis calcium acetate(phosphat bind) 667 mg capsule 1,334 mg PO .TID c c Qty: 180 11RF (DME) blood pressure monitor kit See Dose Instructions .ROUTE .MEDSUPPLY Qty: 1 0RF Dose Instruction: As directed Rx Instructions: As directed to monitor blood pressures at home. valacyclovir 500 mg tablet 500 mg PO QPM 0RF B-complex with vitamin C Tablet 1 tab PO QAM 0RF cyanocobalamin (vitamin B-12) 1,000 mcg tablet 1,000 mcg PO QAM 0RF aspirin 81 mg tablet,chewable 81 mg PO QPM 0RF glipizide 5 mg tablet 5 mg PO BID 0RF Rx Instructions: New dose and formulation Discontinued losartan 50 mg tablet See Rx Instructions PO BID Qty: 60 11RF Rx Instructions: The correct dose of Losartan is 50 mg orally BID and skip dose MWF evening after dialysis carvedilol 25 mg Tablet 25 mg PO PRN PRN (Reason: Blood Pressure) 0RF Rx Instructions: must administer with a meal/food Follow Up Plan Follow up with: Not On Staff,Physician [Primary Care Provider] - Patient Disposition: Xfer SNF Prognosis: Fair Rehab Potential: Fair I certify that the patient requires SNF services: Yes Overall status at discharge: patient is progressing back to baseline Discharge Orders: Discharge Order (Routine); Ordered 09/11/21 Ordered By: Cyril JANG VTE Deep Vein Thrombosis/Pulmonary Embolism Present on Admission: No
[2021-09-11] MEDS ORDERED: ISOSORBIDE DINITRATE 10 MG TABLET PO SCH (21:00)
--- NOTE | 2021-09-15 08:50 | EKG ---
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 Measurements Intervals [place] Rate: 75 P: 6 UT: 173 QRS: -13 QRSD: 75 T: 58 QT: 460 QTc: 514 Interpretive Statements Sinus rhythm Low voltage, precordial leads Poor R wave progression; Consider anterior infarct Prolonged QT interval Electronically Signed On 09-15-2021 8:50:44 PDT by Deepak Yee M.D. /store/[email or web address]/[id number]
== END 2021-09-11 14:05 | DRG 64 ==
LOC: ED 03:56 → ICU 17:35
PROVIDERS: ADMIT Internal Medicine; ATTEND Internal Medicine